=== PATIENT | female | born 1955 | race Caucasian/White ===

== ENCOUNTER 2017-05-20 15:40 | Inpatient (IN) | payer MEDICARE, MEDICAID ==
[~2017-05-20] VITALS: Ht 175.3 cm; Wt 77.0 kg
[2017-05-20] VITALS (12 sets, daily range): BP systolic 77–129; BP diastolic 45–67; PULSE 88–100; RESP 13–17; TEMP 98–98.7; O2SAT 90–97
[~2017-05-20 15:40] MED LIST: HYDR10TA16 PO; MS C60TA4 PO; PREV30CA36 PO; SOMA350T PO
[2017-05-20] MEDS ORDERED: NAPR500T2 PO (16:04)
[2017-05-20] MEDS ORDERED: DULO20 PO (16:04)
[2017-05-20] MEDS ORDERED: TIZA2TAB PO (16:04)
[2017-05-20] MEDS ORDERED: TYLETAB36 PO (16:04)
[2017-05-20] MEDS ORDERED: SODIUM CHLOR 0.9% 1000 ML INJ 1,000 ML IV ONE ×2 (16:15→17:30)
[2017-05-20 16:31] LABS: AUTOMATED NEUTROPHIL # 27.8 TH/MM3 (1.8-7.7); BASOPHIL # 0.3 TH/MM3 (0-0.2); BASOPHIL % 0.9 % (0.0-2.0); HEMATOCRIT 41.5 % (35.0-46.0); HEMOGLOBIN 13.7 GM/DL (11.6-15.3); LYMPH % 4.7 % (9.0-44.0); LYMPHOCYTE # 1.4 TH/MM3 (1.0-4.8); MEAN CELL VOLUME 91.8 FL (80.0-100.0); MEAN CORPUSCULAR HEMOGLOBIN 30.4 PG (27.0-34.0); MEAN CORPUSCULAR HGB CONC 33.1 % (32.0-36.0); MEAN PLATELET VOLUME 8.1 FL (7.0-11.0); MONO % 3.6 % (0.0-8.0); MONOCYTE # 1.1 TH/MM3 (0-0.9); NEUT % 90.8 % (16.0-70.0); PLATELET COUNT 277 TH/MM3 (150-450); RED BLOOD COUNT 4.52 MIL/MM3 (4.00-5.30); RED CELL DISTRIBUTION WIDTH 13.8 % (11.6-17.2); WHITE BLOOD COUNT 30.6 TH/MM3 (4.0-11.0)
[2017-05-20 16:39] LABS: CHLORIDE 104 MEQ/L (98-107); SODIUM (NA) 138 MEQ/L (136-145)
--- NOTE | 2017-05-20 16:39 | PD ---
HPI Chief Complaint: Fall Time Seen by Provider: 16:02 Travel History International Travel<30 days: No Contact w/Intl Traveler<30days: No Traveled to known affect area: No History of Present Illness HPI the patient 61 and complains of pain in the left hip. She states she fell in the bathroom and laid on the ground for 3 days. Evidently she was able to crawl to a phone just today leading to EMS activation. Patient reports to the RN at different account. She complains of pain in the left hip constant and worse with range of motion. No fever reported. The fall the bathroom was mechanical in nature. No LOC or head trauma. PFSH Past Medical History Arthritis: Yes Immunizations Current: Yes Seizures: Yes ( A CHILD) Menopausal: Yes Past Surgical History Cholecystectomy: Yes Joint Replacement: Yes (BILAT TOTAL HIP REPLACEMENTS) Neurologic Surgery: Yes (SPINAL CYST REMOVED) Other Surgery: Yes Social History Alcohol Use: No Tobacco Use: Yes (1 PPD) Substance Use: No Allergies-Medications (Allergen,Severity, Reaction): Coded Allergies: cefepime (Unverified Allergy, Severe, THROAT SWELLING, 05/20/17) ceftaroline fosamil (Unverified Allergy, Severe, THROAT SWELLING, 05/20/17) penicillin G (Unverified Allergy, Severe, HIVES, 05/20/17) propoxyphene (Unverified Allergy, Severe, THROAT SWELLING, 05/20/17) HIVES cephalexin (Verified Allergy, Unknown, THROAT SWELLING, 05/20/17) Reported Meds & Prescriptions Reported Meds & Active Scripts Active Reported Tizanidine (Tizanidine HCl) 2 Mg Tab 2 Mg PO BID Naproxen 500 Mg Tab 500 Mg PO BID Cymbalta DR (Duloxetine HCl) 20 Mg Capdr 20 Mg PO BID Tylenol-Codeine #4 (Acetaminophen-Codeine) 300-60 mg Tab 1 Tab PO Q4H PRN Review of Systems Except as stated in HPI: all other systems reviewed are Neg General / Constitutional: No: Fever Cardiovascular: No: Chest Pain or Discomfort Physical Exam Narrative GENERAL: 61 yo F, WNWD, AOx3, mild distress 2/2 anxiety and/or pain SKIN: Warm and dry. No ecchymosis. HEAD: Atraumatic. Normocephalic. EYES: Pupils equal and round. No scleral icterus. No injection or drainage. ENT: No nasal bleeding or discharge. Mucous membranes pink and moist. NECK: Trachea midline. No JVD. CARDIOVASCULAR: Regular rate and rhythm. RESPIRATORY: No accessory muscle use. Clear to auscultation. Breath sounds equal bilaterally. GASTROINTESTINAL: Abdomen soft, non-tender, nondistended. Hepatic and splenic margins not palpable. MUSCULOSKELETAL: Extremities without clubbing, cyanosis, or edema. No obvious deformities. NEUROLOGICAL: TTP L hip. No shortening or rotation of either lower extremity. No gross deformity. PSYCHIATRIC: Appropriate mood and affect; insight and judgment normal. Data Data Last Documented VS Vital Signs Date Time Temp Pulse Resp B/P (MAP) Pulse Ox O2 Delivery O2 Flow Rate FiO2 05/20/17 17:41 94 16 129/67 (87) 97 Nasal Cannula 2.00 05/20/17 15:49 98.0 VS reviewed Orders Orders Complete Blood Count With Diff (05/20/17 16:12) Comprehensive Metabolic Panel (05/20/17 16:12) Chest, Single Ap (05/20/17 16:12) Hip, Uni(Ap&Lat) W Ap Pelvis (05/20/17 16:12) Iv Access Insert/Monitor (05/20/17 16:12) Oximetry (05/20/17 16:12) Ecg Monitoring (05/20/17 16:12) Creatine Kinase (Cpk) (05/20/17 16:12) Sodium Chlor 0.9% 1000 Ml Inj (Ns 1000 M (05/20/17 16:15) B-Type Natriuretic Peptide (05/20/17 16:12) Troponin I (05/20/17 16:12) CKMB (05/20/17 16:25) CKMB% (05/20/17 16:25) Curtain Roller Assembler / Telemetry MARIANELA.Q8H (05/20/17 17:12) Activity Bed Rest (05/20/17 17:12) ^ Straight Catheter (05/20/17 17:19) Naloxone Inj (Narcan Inj) (05/20/17 17:30) Sodium Chlor 0.9% 1000 Ml Inj (Ns 1000 M (05/20/17 17:30) Vancomycin Inj (Vancomycin Inj) (05/20/17 17:20) Aztreonam Inj (Azactam Inj) (1/3/18 17:20) Metronidazole 500 Mg Inj (Flagyl 500 Mg (05/20/17 17:20) Labs Laboratory Tests Test 05/20/17 16:25 White Blood Count 30.6 TH/MM3 Red Blood Count 4.52 MIL/MM3 Hemoglobin 13.7 GM/DL Hematocrit 41.5 % Mean Corpuscular Volume 91.8 FL Mean Corpuscular Hemoglobin 30.4 PG Mean Corpuscular Hemoglobin Concent 33.1 % Red Cell Distribution Width 13.8 % Platelet Count 277 TH/MM3 Mean Platelet Volume 8.1 FL Neutrophils (%) (Auto) 90.8 % Lymphocytes (%) (Auto) 4.7 % Monocytes (%) (Auto) 3.6 % Eosinophils (%) (Auto) 0.0 % Basophils (%) (Auto) 0.9 % Neutrophils # (Auto) 27.8 TH/MM3 Lymphocytes # (Auto) 1.4 TH/MM3 Monocytes # (Auto) 1.1 TH/MM3 Eosinophils # (Auto) 0.0 TH/MM3 Basophils # (Auto) 0.3 TH/MM3 CBC Comment AUTO DIFF Differential Comment AUTO DIFF CONFIRMED Blood Urea Nitrogen 34 MG/DL Creatinine 1.90 MG/DL Random Glucose 83 MG/DL Total Protein 7.2 GM/DL Albumin 2.7 GM/DL Calcium Level 8.5 MG/DL Alkaline Phosphatase 257 U/L Aspartate Amino Transf (AST/SGOT) 63 U/L Alanine Aminotransferase (ALT/SGPT) 22 U/L Total Bilirubin 2.3 MG/DL Sodium Level 138 MEQ/L Potassium Level 4.7 MEQ/L Chloride Level 104 MEQ/L Carbon Dioxide Level 23.0 MEQ/L Anion Gap 11 MEQ/L Estimat Glomerular Filtration Rate 27 ML/MIN Total Creatine Kinase 255 U/L Creatine Kinase MB 3.1 NG/ML Creatine Kinase MB % 1.2 % Troponin I LESS THAN 0.02 NG/ML B-Type Natriuretic Peptide 115 PG/ML MDM Medical Decision Making Medical Screen Exam Complete: Yes Emergency Medical Condition: Yes Medical Record Reviewed: Yes Differential Diagnosis rhabdo, renal failure, hip fracture Narrative Course CBC & BMP Diagram 05/20/17 16:25 Total Protein 7.2, Albumin 2.7 L, Calcium Level 8.5, Alkaline Phosphatase 257 H , Aspartate Amino Transf (AST/SGOT) 63 H, Alanine Aminotransferase (ALT/SGPT) 22 , Total Bilirubin 2.3 H Last Impressions Hip and Pelvis X-Ray 05/20/17 161 Signed Impressions: Service Date/Time: Saturday, May 20, 2017 16:27 - CONCLUSION: Arthroplasty in anatomic alignment without fracture. Garland Webb MD FACR Chest X-Ray 05/20/171611 Signed Impressions: Service Date/Time: Saturday, May 20, 2017 16:27 - CONCLUSION: 1. No acute cardiopulmonary disease. Jh Ochoa MD The patient was rolled and there is no evidence of infection on the back or the region of the buttocks. Antibiotic started, Azactam, Flagyl and Vanco. 2 L saline started concern for possible rhabdo. Case discussed with Dr. Valenzuela for [facility] and then Dr. Barrett, the patient's primary care provider, who accepted the patient to his service. Diagnosis Primary Impression: YANNA (acute kidney injury) Additional Impressions: Fall Qualified Codes: W19.XXXA - Unspecified fall, initial encounter Leukocytosis Qualified Codes: D72.829 - Elevated white blood cell count, unspecified Admitting Information Admitting Physician Requests: Observation David Freed MD May 20, 2017 16:39
[2017-05-20 16:43] LABS: ALBUMIN 2.7 GM/DL (3.4-5.0); BLOOD UREA NITROGEN 34 MG/DL (7-18); CALCIUM 8.5 MG/DL (8.5-10.1); GLUCOSE,RANDOM 83 MG/DL (74-106)
[2017-05-20 16:46] LABS: ALT (GPT) 22 U/L (10-53)
[2017-05-20 16:47] LABS: AST (GOT) 63 U/L (15-37); GLOMERULAR FILTRATION RATE 27 ML/MIN (>89)
[2017-05-20 16:48] LABS: TOTAL BILIRUBIN ADULT 2.3 MG/DL (0.2-1.0); TOTAL PROTEIN 7.2 GM/DL (6.4-8.2)
[2017-05-20 16:49] LABS: ALKALINE PHOSPHATASE 257 U/L (45-117)
[2017-05-20 16:51] LABS: TROPONIN I LESS THAN 0.02 NG/ML (0.02-0.05)
--- NOTE | 2017-05-20 16:56 | RADRPT ---
EXAM DATE/TIME: 05/20/2017 16:27 [facility] COMPARISON: No previous studies available for comparison. INDICATIONS : Left hip pain after fall. MEDICAL HISTORY : None. SURGICAL HISTORY : Bilateral hip replacements. ENCOUNTER: Initial ACUITY: 3 days PAIN SCORE: 6/10 LOCATION: Left hip. FINDINGS: Examination of the left hip was performed with AP Pelvis. The primary and secondary trabecular patte rn of the femoral neck is intact. The hip joint is of normal width without significant sclerosis or bony hypertrophy. The acetabulum is grossly intact. CONCLUSION: Arthroplasty in anatomic alignment without fracture. Garland Webb MD FACR on May 20, 2017 at 16:54 Board Certified Radiologist. This report was verified electronically.
--- NOTE | 2017-05-20 17:10 | RADRPT ---
EXAM DATE/TIME: 05/20/2017 16:27 [facility] COMPARISON: No previous studies available for comparison. INDICATIONS : Short of breath after fall. MEDICAL HISTORY : None. SURGICAL HISTORY : Bilateral hip replacements. ENCOUNTER: Initial ACUITY: 3 days PAIN SCORE: 0/10 LOCATION: Bilateral chest FINDINGS: A single view of the chest demonstrates the lungs to be symmetrically aerated without evidence of mas s, infiltrate or effusion. The cardiomediastinal contours are unremarkable. Osseous structures are intact. CONCLUSION: 1. No acute cardiopulmonary disease. Jh Ochoa MD on May 20, 2017 at 17:08 Board Certified Radiologist. This report was verified electronically.
[2017-05-20] MEDS ORDERED: metroNIDAZOLE 500 MG INJ 100 ML IV STA (17:20)
[2017-05-20] MEDS ORDERED: VANCOMYCIN INJ 1,000 MG in SODIUM CHLOR 0.9% 250 ML INJ 250 ML IV STA (17:20)
[2017-05-20] MEDS ORDERED: AZTREONAM INJ 2,000 MG in SODIUM CHLORIDE 0.9% INJ 100 ML IV STA (17:20)
[2017-05-20] MEDS ORDERED: NALOXONE HCL 0.4 MG/ML AMP IV PUSH ONE (17:30)
[2017-05-20] MEDS ORDERED: NALOXONE HCL 0.4 MG/ML AMP IV PUSH PRN (18:00)
[2017-05-20] MEDS ORDERED: ONDANSETRON HCL 4 MG/2 ML VIAL IVP PRN (18:00)
[2017-05-20] MEDS ORDERED: MAGNESIUM HYDROXIDE SUSP 30 ML CUP PO PRN (18:00)
[2017-05-20] MEDS ORDERED: SODIUM CHLORIDE 0.9% FLUSH 10 ML FLUSH IV FLUSH PRN (18:00)
[2017-05-20] MEDS: SODIUM CHLOR 0.9% 1000 ML INJ 1,000 ML IV SCH (18:00)
[2017-05-20 18:27] LABS: BILIRUBIN, URINE MOD (NEG); BLOOD, URINE NEG (NEG); GLUCOSE,URINE NEG (NEG); KETONE, URINE TRACE mg/dL (NEG); NITRITE,URINE NEG (NEG); URINE LEUKOCYTE ESTERASE NEG (NEG)
[2017-05-20 18:31] LABS: URINE COLOR AMBER (YELLW/STRAW)
[2017-05-20 18:34] LABS: BACTERIA, URINE OCC /hpf; RBC, URINE 0-3 /hpf (0-3); SQUAMOUS EPITHELIAL CELL URINE 0-5 /hpf (0-5); WHITE BLOOD CELL CLUMPS FEW
[2017-05-20 18:35] LABS: AMORPHOUS SEDIMENT, URINE LARGE
[2017-05-20] MEDS: SODIUM CHLORIDE 0.9% FLUSH 10 ML FLUSH IV FLUSH SCH (20:50)
[2017-05-20] MEDS: ENOXAPARIN SODIUM 40 MG/0.4 ML SYRINGE SQ SCH (22:04)
[2017-05-20] MEDS ORDERED: CHLORHEXIDINE GLUCONATE 2 % 1 PACK (2 CLOTHS)(extra cloths) TOPICAL PRN (22:30)
[2017-05-21] VITALS (52 sets, daily range): BP systolic 69–117; BP diastolic 40–66; PULSE 65–101; RESP 10–27; TEMP 98.2–99.2; O2SAT 88–98
[2017-05-21] MEDS: CHLORHEXIDINE GLUCONATE 2 % 1 PACK (2 CLOTHS)(taper/protocol) TOPICAL SCH (04:00)
[2017-05-21] MEDS: SODIUM CHLOR 0.9% 1000 ML INJ 1,000 ML IV SCH ×2 (04:06→13:32)
[2017-05-21 05:10] LABS: AUTOMATED NEUTROPHIL # 21.6 TH/MM3 (1.8-7.7); BASOPHIL % 0.2 % (0.0-2.0); EOSINOPHIL % 0.1 % (0.0-4.0); HEMATOCRIT 38.4 % (35.0-46.0); HEMOGLOBIN 12.4 GM/DL (11.6-15.3); LYMPH % 3.7 % (9.0-44.0); LYMPHOCYTE # 0.9 TH/MM3 (1.0-4.8); MEAN CORPUSCULAR HEMOGLOBIN 29.3 PG (27.0-34.0); MEAN CORPUSCULAR HGB CONC 32.2 % (32.0-36.0); MEAN PLATELET VOLUME 8.3 FL (7.0-11.0); MONO % 3.1 % (0.0-8.0); MONOCYTE # 0.7 TH/MM3 (0-0.9); NEUT % 92.9 % (16.0-70.0); PLATELET COUNT 237 TH/MM3 (150-450); RED BLOOD COUNT 4.23 MIL/MM3 (4.00-5.30); RED CELL DISTRIBUTION WIDTH 13.8 % (11.6-17.2); WHITE BLOOD COUNT 23.3 TH/MM3 (4.0-11.0)
[2017-05-21 05:20] LABS: CHLORIDE 110 MEQ/L (98-107); SODIUM (NA) 142 MEQ/L (136-145)
[2017-05-21 05:23] LABS: BICARBONATE 22.7 MEQ/L (21.0-32.0); BLOOD UREA NITROGEN 40 MG/DL (7-18); GLUCOSE,RANDOM 70 MG/DL (74-106)
[2017-05-21 05:26] LABS: ALBUMIN 2.3 GM/DL (3.4-5.0); ALT (GPT) 17 U/L (10-53)
[2017-05-21 05:27] LABS: AST (GOT) 45 U/L (15-37)
[2017-05-21 05:28] LABS: TOTAL BILIRUBIN ADULT 2.3 MG/DL (0.2-1.0); TOTAL PROTEIN 6.4 GM/DL (6.4-8.2)
[2017-05-21 05:29] LABS: ALKALINE PHOSPHATASE 252 U/L (45-117); GLOMERULAR FILTRATION RATE 29 ML/MIN (>89)
[2017-05-21] MEDS: SODIUM CHLORIDE 0.9% FLUSH 10 ML FLUSH IV FLUSH SCH ×2 (08:23→21:00)
--- NOTE | 2017-05-21 10:14 | HHI.HP ---
History of Present Illness Service Primary care Primary Care Physician Paxton Barrett, DO Admission Diagnosis YANNA; Hypotension; Opioid Side Effect Diagnoses: (1) Leukocytosis (2) YANNA (acute kidney injury) (3) Fall History of Present Illness 61 y/o known to our practice S/P L ROBLES done in November. Found on floor after a fall in the bathroom, where it is reported she laid on floor for 3 days. Evidently she was able to crawl to a phone just today leading to EMS activation. She was obtunded, Narcan was given and she started to wake up. She complains of pain in the left hip pain. X-ray in ED negative for Fracture. She was found to have elevated WBC, Cxr negative. UA has culture pending, Leukocytosis likely from urine. Review of Systems ROS Limitations: Clinical Condition Past Family Social History Allergies: Coded Allergies: cefepime (Unverified Allergy, Severe, THROAT SWELLING, 05/20/17) ceftaroline fosamil (Unverified Allergy, Severe, THROAT SWELLING, 05/20/17) penicillin G (Unverified Allergy, Severe, HIVES, 05/20/17) propoxyphene (Unverified Allergy, Severe, THROAT SWELLING, 05/20/17) HIVES cephalexin (Verified Allergy, Unknown, THROAT SWELLING, 05/20/17) Past Medical History Anxiety, depression, Arthritis Past Surgical History B/L Hip replacements Reported Medications per office records: Tylenol 3#, Xanax, Cymbalta Active Ordered Medications Current Medications Medications (Trade) Dose Ordered Sig/Magda Route Start Time Stop Time Status Last Admin Sodium Chloride 1,000 ml @ 100 mls/hr Q10H IV 05/20/17 18:00 05/21/17 04:06 (NS Flush) 2 ml UNSCH PRN IV FLUSH 05/20/17 18:00 (NS Flush) 2 ml BID IV FLUSH 05/20/17 21:00 (Zofran Inj) 4 mg Q6H PRN IVP 05/20/17 18:00 (Lovenox Inj) 40 mg Q24H SQ 05/20/17 21:00 05/20/17 22:04 (Narcan Inj) 0.4 mg UNSCH PRN IV PUSH 05/20/17 18:00 (Milk Of Magnesia Liq) 30 ml Q12H PRN PO 05/20/17 18:00 Miscellaneous Information Patient in critical care unit? Ass... [id number] .XX 05/20/17 22:30 05/20/17 22:30 (Chlorhexidine 2% Cloth) 3 pack DAILY@04 TOPICAL 05/21/17 04:00 05/25/17 04:01 05/21/17 04:00 (Chlorhexidine 2% Cloth) 3 pack UNSCH PRN TOPICAL 05/20/17 22:30 05/25/17 22:18 Physical Exam Vital Signs Vital Signs Date Time Temp Pulse Resp B/P (MAP) Pulse Ox O2 Delivery O2 Flow Rate FiO2 05/21/17 09:35 90 92/52 (65) 05/21/17 09:35 91 12 92/52 (65) 93 05/21/17 09:29 90 11 94/45 (61) 92 05/21/17 09:27 90 10 88/46 (60) 91 05/21/17 09:26 90 11 84/48 (60) 91 05/21/17 09:13 96 13 98/57 (71) 92 05/21/17 09:03 90 17 89/47 (61) 90 05/21/17 09:01 88 18 84/47 (59) 90 05/21/17 09:00 88 18 84/47 (59) 90 05/21/17 08:01 96 16 99/54 (69) 91 05/21/17 08:00 96 16 99/54 (69) 91 05/21/17 07:03 90 10 95/49 (64) 91 05/21/17 07:01 90 14 86/52 (63) 91 05/21/17 07:00 98.4 90 14 86/52 (63) 91 05/21/17 07:00 92 Nasal Cannula 3.00 05/21/17 06:01 90 14 92/48 (63) 92 05/21/17 06:00 91 05/21/17 05:02 92 14 91/45 (60) 90 05/21/17 05:01 92 13 77/43 (54) 89 05/21/17 04:11 Nasal Cannula 2.00 05/21/17 04:01 98.2 98 22 96/52 (67) 91 05/21/17 04:00 90 05/21/17 03:01 98 13 104/56 (72) 89 05/21/17 02:01 96 15 95/49 (64) 88 05/21/17 02:00 97 05/21/17 01:01 94 14 91/50 (64) 88 05/21/17 01:01 94 14 91/50 (64) 88 05/21/17 00:01 98.7 96 14 90/50 (63) 92 05/21/17 00:01 96 14 90/50 (63) 92 05/21/17 00:00 101 05/20/17 23:00 100 05/20/17 22:15 90 Nasal Cannula 3.00 05/20/17 22:00 98.7 92 13 102/56 (71) 90 05/20/17 21:49 98.2 98 14 100/50 (67) 93 Nasal Cannula 2.00 05/20/17 20:43 100 15 111/56 (74) 94 Nasal Cannula 2.00 05/20/17 19:07 100 16 98/54 (69) 95 Nasal Cannula 2.00 05/20/17 17:56 92 16 117/63 (81) 97 Nasal Cannula 2.00 05/20/17 17:41 94 16 129/67 (87) 97 Nasal Cannula 2.00 05/20/17 17:26 88 16 107/56 (73) 94 Nasal Cannula 2.00 05/20/17 17:10 90 16 78/45 (56) 94 Room Air 05/20/17 17:05 88 16 77/48 (58) 94 Nasal Cannula 2.00 05/20/17 16:49 17 96 Nasal Cannula 2.00 05/20/17 15:52 17 94 Nasal Cannula 2.00 05/20/17 15:49 98.0 98 17 95/50 (65) 90 Physical Exam GENERALWell nourished, no apparent distress SKIN: No rashes, ecchymoses or lesions. Cool and dry. HEAD: Atraumatic. Normocephalic. No temporal or scalp tenderness. EYES: Pupils equal round and reactive. Extraocular motions intact. No scleral icterus. No injection or drainage. ENT: Nose without bleeding, purulent drainage Airway patent. NECK: Trachea midline. No JVD or lymphadenopathy. Supple, nontender, no meningeal signs. CARDIOVASCULAR: Regular rate and rhythm without murmurs, gallops, or rubs. RESPIRATORY: Clear to auscultation. Breath sounds equal bilaterally. No wheezes , rales, or rhonchi. GASTROINTESTINAL: Abdomen soft, non-tender, nondistended. No hepato-splenomegaly , or palpable masses. No guarding. MUSCULOSKELETAL: Extremities without clubbing, cyanosis, or edema. c/o left hip joint tenderness, effusion, or edema noted. No calf tenderness. Negative Homans sign bilaterally. NEUROLOGICAL: lethargic, will attempt to answer questions then fall asleep mid sentence . Laboratory Laboratory Tests Test 05/20/17 16:25 05/20/17 17:50 05/20/17 22:15 05/21/17 04:27 White Blood Count 30.6 23.3 Red Blood Count 4.52 4.23 Hemoglobin 13.7 12.4 Hematocrit 41.5 38.4 Mean Corpuscular Volume 91.8 91.0 Mean Corpuscular Hemoglobin 30.4 29.3 Mean Corpuscular Hemoglobin Concent 33.1 32.2 Red Cell Distribution Width 13.8 13.8 Platelet Count 277 237 Mean Platelet Volume 8.1 8.3 Neutrophils (%) (Auto) 90.8 92.9 Lymphocytes (%) (Auto) 4.7 3.7 Monocytes (%) (Auto) 3.6 3.1 Eosinophils (%) (Auto) 0.0 0.1 Basophils (%) (Auto) 0.9 0.2 Neutrophils # (Auto) 27.8 21.6 Lymphocytes # (Auto) 1.4 0.9 Monocytes # (Auto) 1.1 0.7 Eosinophils # (Auto) 0.0 0.0 Basophils # (Auto) 0.3 0.0 CBC Comment AUTO DIFF DIFF FINAL Differential Comment AUTO DIFF CONFIRMED Blood Urea Nitrogen 34 40 Creatinine 1.90 1.80 Random Glucose 83 70 Total Protein 7.2 6.4 Albumin 2.7 2.3 Calcium Level 8.5 8.0 Alkaline Phosphatase 257 252 Aspartate Amino Transf (AST/SGOT) 63 45 Alanine Aminotransferase (ALT/SGPT) 22 17 Total Bilirubin 2.3 2.3 Sodium Level 138 142 Potassium Level 4.7 4.6 Chloride Level 104 110 Carbon Dioxide Level 23.0 22.7 Anion Gap 11 9 Estimat Glomerular Filtration Rate 27 29 Total Creatine Kinase 255 Creatine Kinase MB 3.1 Creatine Kinase MB % 1.2 Troponin I LESS THAN 0.02 B-Type Natriuretic Peptide 115 Urine Color PIA Urine Turbidity CLOUDY Urine pH 5.0 Urine Specific [place] 1.030 Urine Protein 30 Urine Glucose (UA) NEG Urine Ketones TRACE Urine Occult Blood NEG Urine Nitrite NEG Urine Bilirubin MOD Urine Leukocyte Esterase NEG Urine RBC 0-3 Urine WBC 9-14 Urine WBC Clumps FEW Urine Squamous Epithelial Cells 0-5 Urine Amorphous Sediment LARGE Urine Bacteria OCC Urine Hyaline Casts 6-9 Urine Fine Granular Casts 25-49 Microscopic Urinalysis Comment CATH-CULTURE IND Date/Time Source Procedure Growth Status 05/20/17 17:50 Urine Clean Catch Urine Culture Pending Received Result Diagram: 05/21/17 0427 05/21/17 0427 Imaging Last 24 hours Impressions Hip and Pelvis X-Ray 05/20/171611 Signed Impressions: Service Date/Time: Saturday, May 20, 2017 16:27 - CONCLUSION: Arthroplasty in anatomic alignment without fracture. Garland Webb MD FACR Chest X-Ray 05/20/171611 Signed Impressions: Service Date/Time: Saturday, May 20, 2017 16:27 - CONCLUSION: 1. No acute cardiopulmonary disease. Jh Ochoa MD Caprini VTE Risk Assessment Caprini VTE Risk Assessment: Mod/High Risk (score >= 2) Caprini Risk Assessment Model Point Value = 1 Point Value = 2 Point Value = 3 Point Value = 5 Age 41-60 Minor surgery BMI > 25 kg/m2 Swollen legs Varicose veins or History of unexplained or recurrent spontaneous Oral contraceptives or hormone replacement Sepsis (< 1 month) Serious lung disease, including pneumonia (< 1 month) Abnormal pulmonary function Acute myocardial infarction Congestive heart failure (< 1 month) History of inflammatory bowel disease Medical patient at bed rest Age 61-74 Arthroscopic surgery Major open surgery (> 45 min) Laparoscopic surgery (> 45 min) Malignancy Confined to bed (> 72 hours) Immobilizing plaster cast Central venous access Age >= 75 History of VTE Family history of VTE Factor V Leiden Prothrombin [id number] Lupus anticoagulant Anticardiolipin antibodies Elevated serum homocysteine Heparin-induced thrombocytopenia Other congenital or acquired thrombophilia Stroke (< 1 month) Elective arthroplasty Hip, pelvis, or leg fracture Acute spinal cord injury (< 1 month) Prophylaxis Regimen Total Risk Factor Score Risk Level Prophylaxis Regimen 0-1 Low Early ambulation 2 Moderate Order ONE of the following: *Sequential Compression Device (SCD) *Heparin 5000 units SQ BID 3-4 Higher Order ONE of the following medications: *Heparin 5000 units SQ TID *Enoxaparin/Lovenox 40 mg SQ daily (WT < 150 kg, CrCl > 30 mL/min) *Enoxaparin/Lovenox 30 mg SQ daily (WT < 150 kg, CrCl > 10-29 mL/min) *Enoxaparin/Lovenox 30 mg SQ BID (WT < 150 kg, CrCl > 30 mL/min) AND/OR *Sequential Compression Device (SCD) 5 or more Highest Order ONE of the following medications: *Heparin 5000 units SQ TID (Preferred with Epidurals) *Enoxaparin/Lovenox 40 mg SQ daily (WT < 150 kg, CrCl > 30 mL/min) *Enoxaparin/Lovenox 30 mg SQ daily (WT < 150 kg, CrCl > 10-29 mL/min) *Enoxaparin/Lovenox 30 mg SQ BID (WT < 150 kg, CrCl > 30 mL/min) AND *Sequential Compression Device (SCD) Assessment and Plan Assessment and Plan S/P fall likely related to Opiate use. No injury monitor pain, Tylenol prn Leukocytosis- ID consulted, UA with culture pending YANNA- renal consulted slight improvement with IVF Hypotension- IV bolus give, cont to monitor GI prophylaxis- Lovenox 40mg sq qd Problem Qualifiers (1) Leukocytosis: Qualified Codes: D72.829 - Elevated white blood cell count, unspecified (2) Fall: Qualified Codes: W19.XXXA - Unspecified fall, initial encounter Tanya Toro May 21, 2017 10:14
[2017-05-21] MEDS ORDERED: SODIUM CHLORID 0.9% 500 ML INJ 500 ML IV ONE (10:45)
--- NOTE | 2017-05-21 16:42 | PD.CONS ---
HPI Service Nephrology Consult Requested By Reason for Consult Acute Renal Failure Primary Care Physician Paxton Barrett DO History of Present Illness This is a 61 y/o female who had fallen 3 days ago and was able to get to a phone to call for help today. PMH of Arthritis, recent hip replacements, anxiety. She had no PO intake for that time. On arrival she is in renal failure , no recent labs for comparison. Her creatinine is 1.8 today, was 1.9 on arrival. Her urine output is poor, dark in color, oliguric. She is hypotensive despite fluids. WBC elevated, we were consulted to assist with management. (Mary Armendariz) Review of Systems ROS Limitations: Altered Mental Status Constitutional: COMPLAINS OF: Fatigue Cardiovascular: DENIES: Lower Extremity Edema Psychiatric: COMPLAINS OF: Confusion (Mary Armendariz) Past Family Social History Allergies: Coded Allergies: cefepime (Unverified Allergy, Severe, THROAT SWELLING, 05/20/17) ceftaroline fosamil (Unverified Allergy, Severe, THROAT SWELLING, 05/20/17) penicillin G (Unverified Allergy, Severe, HIVES, 05/20/17) propoxyphene (Unverified Allergy, Severe, THROAT SWELLING, 05/20/17) HIVES cephalexin (Verified Allergy, Unknown, THROAT SWELLING, 05/20/17) Past Medical History Arthritis Anxiety Depression Past Surgical History Bilateral hip replacements Reported Medications Tizanidine (Tizanidine HCl) 2 Mg Tab 2 Mg PO BID Naproxen 500 Mg Tab 500 Mg PO BID Cymbalta DR (Duloxetine HCl) 20 Mg Capdr 20 Mg PO BID Tylenol-Codeine #4 (Acetaminophen-Codeine) 300-60 mg Tab 1 Tab PO Q4H PRN Active Ordered Medications Last 72 hours Impressions Hip and Pelvis X-Ray 05/20/17 1612 Signed Impressions: Service Date/Time: Saturday, May 20, 2017 16:27 - CONCLUSION: Arthroplasty in anatomic alignment without fracture. Garland Webb MD FACR Chest X-Ray 05/20/17 1612 Signed Impressions: Service Date/Time: Saturday, May 20, 2017 16:27 - CONCLUSION: 1. No acute cardiopulmonary disease. Jh Ochoa MD Family History No hx of renal disorders Social History Active occasional smoker No ETOH Lives alone Full code (Mary Armendariz) Physical Exam Vital Signs Vital Signs Date Time Temp Pulse Resp B/P (MAP) Pulse Ox O2 Delivery O2 Flow Rate FiO2 05/21/17 14:03 95 12 81/50 (60) 05/21/17 14:00 90 05/21/17 13:31 93 12 90/40 (57) 96 05/21/17 13:00 117/58 (77) 05/21/17 12:00 98.3 92/54 (67) 05/21/17 12:00 65 05/21/17 10:30 82/48 (59) 05/21/17 10:03 79/51 (60) 05/21/17 10:00 88 11 69/46 (54) 98 05/21/17 10:00 86 05/21/17 09:50 83/50 (61) 05/21/17 09:35 90 92/52 (65) 05/21/17 09:35 91 12 92/52 (65) 93 05/21/17 09:29 90 11 94/45 (61) 92 05/21/17 09:27 90 10 88/46 (60) 91 05/21/17 09:26 90 11 84/48 (60) 91 05/21/17 09:13 96 13 98/57 (71) 92 05/21/17 09:03 90 17 89/47 (61) 90 05/21/17 09:01 88 18 84/47 (59) 90 05/21/17 09:00 88 18 84/47 (59) 90 05/21/17 08:01 96 16 99/54 (69) 91 05/21/17 08:00 96 16 99/54 (69) 91 05/21/17 08:00 94 Nasal Cannula 2.00 05/21/17 08:00 88 05/21/17 07:03 90 10 95/49 (64) 91 05/21/17 07:01 90 14 86/52 (63) 91 05/21/17 07:00 98.4 90 14 86/52 (63) 91 05/21/17 07:00 92 Nasal Cannula 3.00 05/21/17 06:01 90 14 92/48 (63) 92 05/21/17 06:00 91 05/21/17 05:02 92 14 91/45 (60) 90 05/21/17 05:01 92 13 77/43 (54) 89 05/21/17 04:11 Nasal Cannula 2.00 05/21/17 04:01 98.2 98 22 96/52 (67) 91 05/21/17 04:00 90 05/21/17 03:01 98 13 104/56 (72) 89 05/21/17 02:01 96 15 95/49 (64) 88 05/21/17 02:00 97 05/21/17 01:01 94 14 91/50 (64) 88 05/21/17 01:01 94 14 91/50 (64) 88 05/21/17 00:01 98.7 96 14 90/50 (63) 92 05/21/17 00:01 96 14 90/50 (63) 92 05/21/17 00:00 101 05/20/17 23:00 100 05/20/17 22:15 90 Nasal Cannula 3.00 05/20/17 22:00 98.7 92 13 102/56 (71) 90 05/20/17 21:49 98.2 98 14 100/50 (67) 93 Nasal Cannula 2.00 05/20/17 20:43 100 15 111/56 (74) 94 Nasal Cannula 2.00 05/20/17 19:07 100 16 98/54 (69) 95 Nasal Cannula 2.00 05/20/17 17:56 92 16 117/63 (81) 97 Nasal Cannula 2.00 05/20/17 17:41 94 16 129/67 (87) 97 Nasal Cannula 2.00 05/20/17 17:26 88 16 107/56 (73) 94 Nasal Cannula 2.00 05/20/17 17:10 90 16 78/45 (56) 94 Room Air 05/20/17 17:05 88 16 77/48 (58) 94 Nasal Cannula 2.00 05/20/17 16:49 17 96 Nasal Cannula 2.00 Physical Exam Elderly female patient Awake, confused very dry mucous membranes lungs with wheezing, trace rales S1/S2, RRR no murmurs, rate 93 Abdomen obese, soft, non tender mai draining dark urine, oliguric Laboratory Laboratory Tests Test 05/20/17 17:50 05/20/17 22:15 05/21/17 04:27 Urine Color PIA Urine Turbidity CLOUDY Urine pH 5.0 Urine Specific [place] 1.030 Urine Protein 30 Urine Glucose (UA) NEG Urine Ketones TRACE Urine Occult Blood NEG Urine Nitrite NEG Urine Bilirubin MOD Urine Leukocyte Esterase NEG Urine RBC 0-3 Urine WBC 9-14 Urine WBC Clumps FEW Urine Squamous Epithelial Cells 0-5 Urine Amorphous Sediment LARGE Urine Bacteria OCC Urine Hyaline Casts 6-9 Urine Fine Granular Casts 25-49 Microscopic Urinalysis Comment CATH-CULTURE IND Nasal Screen MRSA (PCR) MRSA NOT DETECTED White Blood Count 23.3 Red Blood Count 4.23 Hemoglobin 12.4 Hematocrit 38.4 Mean Corpuscular Volume 91.0 Mean Corpuscular Hemoglobin 29.3 Mean Corpuscular Hemoglobin Concent 32.2 Red Cell Distribution Width 13.8 Platelet Count 237 Mean Platelet Volume 8.3 Neutrophils (%) (Auto) 92.9 Lymphocytes (%) (Auto) 3.7 Monocytes (%) (Auto) 3.1 Eosinophils (%) (Auto) 0.1 Basophils (%) (Auto) 0.2 Neutrophils # (Auto) 21.6 Lymphocytes # (Auto) 0.9 Monocytes # (Auto) 0.7 Eosinophils # (Auto) 0.0 Basophils # (Auto) 0.0 CBC Comment DIFF FINAL Differential Comment Blood Urea Nitrogen 40 Creatinine 1.80 Random Glucose 70 Total Protein 6.4 Albumin 2.3 Calcium Level 8.0 Alkaline Phosphatase 252 Aspartate Amino Transf (AST/SGOT) 45 Alanine Aminotransferase (ALT/SGPT) 17 Total Bilirubin 2.3 Sodium Level 142 Potassium Level 4.6 Chloride Level 110 Carbon Dioxide Level 22.7 Anion Gap 9 Estimat Glomerular Filtration Rate 29 Date/Time Source Procedure Growth Status 05/20/17 17:50 Urine Clean Catch Urine Culture - Preliminary NO GROWTH IN 24 HOURS. Resulted (Mary Armendariz) Result Diagram: 05/21/17 0427 05/21/17 0427 Imaging Last 72 hours Impressions Hip and Pelvis X-Ray 05/20/17 1612 Signed Impressions: Service Date/Time: Saturday, May 20, 2017 16:27 - CONCLUSION: Arthroplasty in anatomic alignment without fracture. Garland Webb MD FACR Chest X-Ray 05/20/17 1612 Signed Impressions: Service Date/Time: Saturday, May 20, 2017 16:27 - CONCLUSION: 1. No acute cardiopulmonary disease. Jh Ochoa MD (Mary Armendariz) Assessment and Plan Problem List: (1) YANNA (acute kidney injury) ICD Codes: N17.9 - Acute kidney failure, unspecified Status: Acute Plan: No recent labs for comparison Reportedly was on Naproxen prior to arrival YANNA suspected prerenal azotemia from poor oral intake; also exacerbated by hypotension and decreased renal perfusion May have progressed to ATN She is oliguric continue IVF Start midodrine, if no improvement, may need pressor support; maintain MAP > 65mmHg Repeat labs in AM, minimize non essential Meds and nephrotoxic agents; renally dose and monitor drug levels if appropriate Follow urine output encourage PO fluids Renal US has been ordered (2) Leukocytosis ICD Codes: D72.829 - Elevated white blood cell count, unspecified Status: Acute Plan: ID has been consulted Suspected UTI, culture in progress Given multiple antibiotics including aztreonam, flagyl, vancomycin (Mary Armendariz) Problem List: (1) YANNA (acute kidney injury) ICD Codes: N17.9 - Acute kidney failure, unspecified Status: Acute Plan: No recent labs for comparison Reportedly was on Naproxen prior to arrival YANNA suspected prerenal azotemia from poor oral intake; also exacerbated by hypotension and decreased renal perfusion May have progressed to ATN She is oliguric continue IVF Start midodrine, if no improvement, may need pressor support; maintain MAP > 65mmHg Repeat labs in AM, minimize non essential Meds and nephrotoxic agents; renally dose and monitor drug levels if appropriate Follow urine output encourage PO fluids Renal US has been ordered (2) Leukocytosis ICD Codes: D72.829 - Elevated white blood cell count, unspecified Status: Acute Plan: ID has been consulted Suspected UTI, culture in progress Given multiple antibiotics including aztreonam, flagyl, vancomycin Assessment and Plan patient was seen and examined. Patient is hypotensive, oliguric. YANNA could be secondary to pre-renal state, may have progressed to ATN. She likely overdosed on narcotics. Obtain urine electrolytes. Another fluid bolus. No need for Midodrine, if remains hypotensive in spite of IVF, start Levophed. Monitor urine output and renal function. (Nick Ceballos MD) Problem Qualifiers (1) Leukocytosis: Qualified Codes: D72.829 - Elevated white blood cell count, unspecified Mary Armendariz May 21, 2017 16:42 Nick Ceballos MD May 21, 2017 17:29
--- NOTE | 2017-05-21 16:47 | RADRPT ---
EXAM DATE/TIME: 05/21/2017 15:41 [facility] COMPARISON: No previous studies available for comparison. INDICATIONS : Congestive heart failure. MEDICAL HISTORY : None. SURGICAL HISTORY : Bilateral hip replacement. ENCOUNTER: Subsequent ACUITY: 1 day PAIN SCORE: 0/10 LOCATION: Bilateral chest FINDINGS: The lungs are clear without infiltrate, nodule, or mass. There is no appreciable pleural effusion fo r technique. Heart and mediastinum are unremarkable. CONCLUSION: No acute cardiopulmonary disease. Edita Ayala MD on May 21, 2017 at 16:43 Board Certified Radiologist. This report was verified electronically.
[2017-05-21] MEDS ORDERED: MIDODRINE 5 MG TAB PO SCH ×2 (17:00)
[2017-05-21] MEDS: LEVOFLOXACIN 250 MG TAB PO SCH (17:18)
[2017-05-21] MEDS ORDERED: SODIUM CHLORID 0.9% 500 ML INJ 500 ML IV SCH (17:30)
--- NOTE | 2017-05-21 18:23 | MB ---
cc: ANTHONY LEAHY MD DATE OF CONSULTATION 05/21/[address] Barrett REASON FOR CONSULTATION Leukocytosis. HISTORY OF PRESENT ILLNESS This 61-year-old white female was brought to the emergency department on 05/20/2017 after she was found at home following a fall. It is noted in the emergency department record that the patient was on the ground for three days. She was evaluated in the emergency department and at the time there was no fever, no tachycardia. However, white blood cell count was elevated at 30.6 with left shift. She also was found to have acute renal failure. She was given IV antibiotics in the emergency department. Urine culture was taken and it has no growth. The urinalysis prior to that showed 9-14 white cells white cells and the urine was reported to be cloudy. The patient underwent chest x-ray evaluation and it showed no acute cardiopulmonary disease. She had complained of pain in her left hip and x-ray was performed and shows arthroplasty in anatomic alignment without fracture. The patient is currently awake and alert. She denies pain. She has no nausea or vomiting. She states that she feels okay. She denies cough or shortness of breath. The patient reportedly was given Narcan after she was found at home and she reportedly started to wake up after that. This consultation is requested because of the leukocytosis. PAST MEDICAL HISTORY 1. Arthritis, 2. Bilateral hip replacement, 3. Anxiety, depression. ALLERGIES CEFEPIME CEFTAROLINE CEPHALEXIN PENICILLIN G PROPOXYPHENE MEDICATIONS 1. Metronidazole dose was given in the emergency department. 2. Vancomycin, 3. Aztreonam. SOCIAL HISTORY The patient smokes a pack of cigarettes a day. No alcohol. No illicit drugs. FAMILY HISTORY Noncontributory. FAMILY HISTORY Noncontributory. REVIEW OF SYSTEMS Negative 10-point review. PHYSICAL EXAMINATION GENERAL: This is a well-developed female who is in no acute distress. She is awake and alert. She is oriented. VITAL SIGNS: Temperature 98.3, BP 81/50, respirations 16, heart rate 95. HEENT: Head atraumatic. Extraocular movements grossly intact. No icterus. Oropharynx mucosa moist. NECK: Supple without adenopathy or swelling. LUNGS: Bilateral coarse rhonchi. HEART: Regular rate and rhythm without audible murmurs, rubs or gallops. ABDOMEN: Bowel sounds present, soft, no tenderness appreciated. RECTAL: Not performed. EXTREMITIES: No clubbing, cyanosis or edema. The patient has a Lo catheter in place which has concentrated jessica urine. SKIN: No diffuse rash. NEUROLOGIC: No gross focal findings PSYCHIATRIC: The patient is calm and cooperative. LABORATORY DATA WBC 23.3, 92% neutrophils, hemoglobin 12.4, estimated GFR 12, creatinine 1.80, sodium 142, AST 45, ALT 17. IMPRESSION Leukocytosis probably secondary to urinary tract infection. The patient, however, also has coarse breath sounds with rhonchi and pneumonia needs to be ruled out as cause of the leukocytosis. RECOMMENDATIONS 1. Begin Levaquin. 2. Follow urine culture. 3. Follow the new chest x-ray which has been ordered. 4. Monitor clinical status. 5. Monitor for other signs for source of infection. Thank you for this consultation. The patient's progress will be monitored and further recommendations will be given upon followup if necessary. Anthony Leahy MD FD/ /4:19 PM /5:50 PM [facility]
[2017-05-21] MEDS: ENOXAPARIN SODIUM 40 MG/0.4 ML SYRINGE SQ SCH (21:39)
[2017-05-21] MEDS: DEXT 5%-NACL 0.9% 1000 ML INJ 1,000 ML IV SCH (21:41)
[2017-05-21] MEDS: RESP: ALBUTEROL 2.5 MG/IPRATROPIUM 0.5 MG NEB (SCH) NEB (23:30)
[2017-05-22] VITALS (51 sets, daily range): BP systolic 74–199; BP diastolic 43–119; PULSE 58–108; RESP 14–35; TEMP 98.2–99.2; O2SAT 89–98
[2017-05-22] MEDS ORDERED: PHENYLEPHRINE INJ 160 MG in DEXTROSE 5% IN WATE 500 ML INJ 484 ML IV PRN ×2 (01:15)
[2017-05-22] MEDS ORDERED: TERBUTALINE INJ 1 MG/ML AMP SQ PRN (01:15)
[2017-05-22] MEDS ORDERED: ALBUMIN 25% INJ 100 ML IV ONE (01:15)
[2017-05-22 02:11] LABS: BLOOD, URINE SMALL (NEG); GLUCOSE,URINE NEG (NEG); KETONE, URINE TRACE mg/dL (NEG); NITRITE,URINE NEG (NEG); PH, URINE 5.5 (5.0-8.5); URINE LEUKOCYTE ESTERASE TRACE (NEG)
[2017-05-22 02:12] LABS: BILIRUBIN, URINE NEG (NEG)
[2017-05-22 02:13] LABS: URINE COLOR YELLOW (YELLW/STRAW)
[2017-05-22 02:16] LABS: SQUAMOUS EPITHELIAL CELL URINE 0-5 /hpf (0-5)
[2017-05-22 02:17] LABS: AMORPHOUS SEDIMENT, URINE LARGE
[2017-05-22 02:18] LABS: CHLORIDE 113 MEQ/L (98-107); SODIUM (NA) 144 MEQ/L (136-145)
[2017-05-22 02:22] LABS: ALBUMIN 2.2 GM/DL (3.4-5.0); BICARBONATE 20.5 MEQ/L (21.0-32.0); CALCIUM 7.5 MG/DL (8.5-10.1); GLUCOSE,RANDOM 114 MG/DL (74-106); LIPASE 45 U/L (73-393); MAGNESIUM 2.1 MG/DL (1.5-2.5)
[2017-05-22 02:24] LABS: INTERNATIONAL NORMALIZED RATIO 1.2 RATIO; PROTHROMBIN TIME - PATIENT 11.9 SEC (9.8-11.6)
[2017-05-22 02:30] LABS: ALKALINE PHOSPHATASE 286 U/L (45-117); ALT (GPT) 13 U/L (10-53); AMYLASE 16 U/L (25-115); AST (GOT) 33 U/L (15-37); BLOOD UREA NITROGEN 55 MG/DL (7-18); GLOMERULAR FILTRATION RATE 22 ML/MIN (>89); PHOSPHORUS 3.9 MG/DL (2.5-4.9); TOTAL BILIRUBIN ADULT 1.4 MG/DL (0.2-1.0); TOTAL PROTEIN 6.4 GM/DL (6.4-8.2)
[2017-05-22] MEDS: DEXT 5%-NACL 0.9% 1000 ML INJ 1,000 ML IV SCH ×3 (02:40→21:50)
[2017-05-22] MEDS: RESP: ALBUTEROL 2.5 MG/IPRATROPIUM 0.5 MG NEB (SCH) NEB ×2 (03:19→20:16)
[2017-05-22] MEDS: SODIUM CHLOR 0.9% 1000 ML INJ 1,000 ML IV SCH (03:30)
[2017-05-22] MEDS: CHLORHEXIDINE GLUCONATE 2 % 1 PACK (2 CLOTHS)(taper/protocol) TOPICAL SCH (04:00)
[2017-05-22 04:22] LABS: CREATININE, RANDOM URINE 122.7 MG/DL
[2017-05-22 04:34] LABS: AUTOMATED NEUTROPHIL # 23.2 TH/MM3 (1.8-7.7); BASOPHIL % 0.1 % (0.0-2.0); EOSINOPHIL # 0.1 TH/MM3 (0-0.4); EOSINOPHIL % 0.4 % (0.0-4.0); HEMATOCRIT 35.2 % (35.0-46.0); HEMOGLOBIN 11.6 GM/DL (11.6-15.3); LYMPH % 5.7 % (9.0-44.0); LYMPHOCYTE # 1.5 TH/MM3 (1.0-4.8); MEAN CELL VOLUME 91.1 FL (80.0-100.0); MEAN CORPUSCULAR HGB CONC 32.9 % (32.0-36.0); MEAN PLATELET VOLUME 8.8 FL (7.0-11.0); MONO % 2.8 % (0.0-8.0); MONOCYTE # 0.7 TH/MM3 (0-0.9); PLATELET COUNT 222 TH/MM3 (150-450); RED BLOOD COUNT 3.87 MIL/MM3 (4.00-5.30); RED CELL DISTRIBUTION WIDTH 13.9 % (11.6-17.2); WHITE BLOOD COUNT 25.5 TH/MM3 (4.0-11.0)
[2017-05-22 04:59] LABS: BANDS 20 % (0-6); LYMPHOCYTES 4 % (9-44); MONOCYTES 1 % (0-8); NEUTROPHIL # MANUAL DIFF 24.2 TH/MM3 (1.8-7.7); POLYS (SEG NEUTROPHILS) 75 % (16-70)
[2017-05-22] MEDS ORDERED: SODIUM CHLORIDE 0.9% FLUSH 10 ML FLUSH IV FLUSH PRN (07:00)
[2017-05-22] MEDS ORDERED: MAGNESIUM HYDROXIDE SUSP 30 ML CUP PO PRN (07:00)
[2017-05-22] MEDS ORDERED: LACTULOSE SYRUP 20 GM/30 ML CUP PO PRN (07:00)
[2017-05-22] MEDS ORDERED: SENNOSIDES 8.6 MG TAB PO PRN (07:00)
[2017-05-22] MEDS ORDERED: CHLORHEXIDINE GLUCONATE 2 % 1 PACK (2 CLOTHS) TOP PRN (07:00)
[2017-05-22] MEDS ORDERED: BISACODYL 10 MG SUPP RECTAL PRN (07:00)
[2017-05-22] MEDS ORDERED: MISCELLANEOUS NURSING INFORMATION XX SCH (07:00)
--- NOTE | 2017-05-22 07:24 | PD.CONS ---
HPI Service Critical Care Medicine Consult Requested By Primary Care Physician Paxton Barrett DO History of Present Illness History of Present Illness This is a 61 y/o female found on floor after a fall in the bathroom, where it is reported she laid on floor for 3 days. She was obtunded, Narcan was given and she started to wake up. She complains of pain in the left hip pain. X-ray in ED negative for fracture on 05/21/2016.The patient is S/P L ROBLES done in November 2016. In the ED , laboratory studies were performed and she was found to have elevated WBC, Cxr negative. UA has culture pending, and leukocytosis. She was admitted to the hospital and in the last 24 hours the patient has continued to have altered mental status, laboratory results continued with leukocytosis and bandemia ID was consulted the patient was noted to have a KI nephrology was consulted. During the night the patient was noted to become hypotensive SBP 80- 90's, and noted increasing FiO2 requirements currently on partial nonrebreather , of note Midodrine was discontinued. Critical care medicine was consulted, low -dose phenylephrine was ordered, however the patient received 250 cc of 5% albumin and currently is normotensive. ROS - General Review of Systems ROS Limitations: Clinical Condition PFSH Past Family Social History Allergies: Coded Allergies: cefepime (Unverified Allergy, Severe, THROAT SWELLING, 05/20/17) ceftaroline fosamil (Unverified Allergy, Severe, THROAT SWELLING, 05/20/17) penicillin G (Unverified Allergy, Severe, HIVES, 05/20/17) propoxyphene (Unverified Allergy, Severe, THROAT SWELLING, 05/20/17) HIVES cephalexin (Verified Allergy, Unknown, THROAT SWELLING, 05/20/17) Past Medical History Anxiety, depression, Arthritis Past Surgical History B/L Hip replacements Reported Medications per office records: Tylenol 3#, Xanax, Cymbalta Active Ordered Medications Physical Exam Vital Signs Vital Signs Date Time Temp Pulse Resp B/P (MAP) Pulse Ox O2 Delivery O2 Flow Rate FiO2 05/22/17 06:19 91 05/22/17 06:00 98.2 91 23 110/52 (71) 94 05/22/17 04:31 90 24 92/48 (63) 97 05/22/17 04:00 92 24 92/48 (63) 96 05/22/17 04:00 90 05/22/17 03:34 96 35 99/47 (64) 97 05/22/17 03:20 96 26 113/69 (84) 96 05/22/17 02:36 90 23 95/54 (68) 98 05/22/17 02:15 92 22 131/54 (79) 96 05/22/17 02:00 91 05/22/17 01:54 97 24 93/49 (64) 98 05/22/17 01:28 92 22 89/47 (61) 95 05/22/17 01:04 81 23 83/46 (58) 89 05/22/17 01:00 97 Partial Rebreather 12.00 05/22/17 00:33 84 23 96/49 (65) 90 05/22/17 00:00 86 22 75/48 (57) 90 05/22/17 00:00 82 05/21/17 23:34 94 Nasal Cannula 6.00 05/21/17 23:04 99.2 84 27 80/46 (57) 91 05/21/17 23:00 80 05/21/17 22:00 92 20 83/52 (62) 91 05/21/17 22:00 86 05/21/17 21:00 94 20 95/66 (76) 90 05/21/17 20:00 88 15 90/54 (66) 91 05/21/17 20:00 88 05/21/17 19:00 92 Nasal Cannula 92 05/21/17 19:00 98.9 87 12 93/53 (66) 90 05/21/17 18:35 88 13 98/54 (69) 93 05/21/17 18:00 94 05/21/17 17:21 96 13 97/54 (68) 92 05/21/17 17:20 97/54 (68) 05/21/17 17:00 90 11 98/52 (67) 91 05/21/17 16:39 98.7 05/21/17 16:30 90/50 (63) 05/21/17 16:00 94 05/21/17 15:30 94/48 (63) 05/21/17 15:00 90/50 (63) 05/21/17 15:00 90 05/21/17 14:30 90/54 (66) 05/21/17 14:03 95 12 81/50 (60) 05/21/17 14:00 95 12 81/50 (60) 05/21/17 14:00 90 05/21/17 13:31 93 12 90/40 (57) 96 05/21/17 13:00 117/58 (77) 05/21/17 12:00 98.3 92/54 (67) 05/21/17 12:00 65 05/21/17 10:30 82/48 (59) 05/21/17 10:03 79/51 (60) 05/21/17 10:00 88 11 69/46 (54) 98 05/21/17 10:00 86 05/21/17 09:50 83/50 (61) 05/21/17 09:35 90 92/52 (65) 05/21/17 09:35 91 12 92/52 (65) 93 05/21/17 09:29 90 11 94/45 (61) 92 05/21/17 09:27 90 10 88/46 (60) 91 05/21/17 09:26 90 11 84/48 (60) 91 05/21/17 09:13 96 13 98/57 (71) 92 05/21/17 09:03 90 17 89/47 (61) 90 05/21/17 09:01 88 18 84/47 (59) 90 05/21/17 09:00 88 18 84/47 (59) 90 05/21/17 08:01 96 16 99/54 (69) 91 05/21/17 08:00 96 16 99/54 (69) 91 05/21/17 08:00 94 Nasal Cannula 2.00 05/21/17 08:00 88 05/21/17 07:03 90 10 95/49 (64) 91 05/21/17 07:01 90 14 86/52 (63) 91 05/21/17 07:00 98.4 90 14 86/52 (63) 91 05/21/17 07:00 92 Nasal Cannula 3.00 Physical Exam GENERAL: This is a well-developed well-nourished obese female, confused and appropriate conversation answers to questions, but follows commands SKIN: Warm and dry. HEAD: Atraumatic. Normocephalic. EYES: Pupils equal and round. No scleral icterus. No injection or drainage. ENT: No nasal bleeding or discharge. Mucous membranes pink and moist. NECK: Trachea midline. No JVD. CARDIOVASCULAR: Normal rate, regular rhythm. Noted systolic ejection murmur 2/6 RESPIRATORY: No accessory muscle use. Scattered rhonchi , cleared with coughing. Breath sounds equal bilaterally. Currently on partial nonrebreather GASTROINTESTINAL: Abdomen soft, non-tender, nondistended. No guarding. MUSCULOSKELETAL: Extremities without clubbing, cyanosis, or edema. No obvious deformities. NEUROLOGICAL: GCS 14 .Awake and alert. RASS 0. No gross focal/sensory deficits. Follows commands in all 4 extremities. Laboratory Laboratory Tests Test 05/22/17 01:22 05/22/17 01:45 05/22/17 01:46 05/22/17 01:54 Blood Gas Puncture Site RT RADIAL Blood Gas Patient Temperature 37.0 Blood Gas HCO3 21 Blood Gas Base Excess -5.0 Blood Gas Oxygen Saturation 94 Arterial Blood pH 7.27 Arterial Blood Partial Pressure CO2 46 Arterial Blood Partial Pressure O2 76 Arterial Blood Oxygen Content 15.0 Arterial Blood Carboxyhemoglobin 1.0 Arterial Blood Methemoglobin 1.0 Blood Gas Hemoglobin 11.4 Oxygen Delivery Device Venti Mask Blood Gas Liter Flow 6 Blood Gas Inspired Oxygen 50 Prothrombin Time 11.9 Prothromb Time International Ratio 1.2 Activated Partial Thromboplast Time 34.5 Fibrinogen 561 Urine Color YELLOW Urine Turbidity CLOUDY Urine pH 5.5 Urine Specific Bittinger 1.025 Urine Protein 100 Urine Glucose (UA) NEG Urine Ketones TRACE Urine Occult Blood SMALL Urine Nitrite NEG Urine Bilirubin NEG Urine Leukocyte Esterase TRACE Urine RBC 3-5 Urine WBC 6-8 Urine Squamous Epithelial Cells 0-5 Urine Amorphous Sediment LARGE Urine Bacteria NONE Urine Fine Granular Casts 6-9 Microscopic Urinalysis Comment CULT NOT INDICATED Urine Random Creatinine 122.7 Urine Random Sodium 29 Blood Urea Nitrogen 55 Creatinine 2.30 Random Glucose 114 Total Protein 6.4 Albumin 2.2 Calcium Level 7.5 Phosphorus Level 3.9 Magnesium Level 2.1 Alkaline Phosphatase 286 Aspartate Amino Transf (AST/SGOT) 33 Alanine Aminotransferase (ALT/SGPT) 13 Total Bilirubin 1.4 Sodium Level 144 Potassium Level 4.4 Chloride Level 113 Carbon Dioxide Level 20.5 Anion Gap 11 Estimat Glomerular Filtration Rate 22 Lactic Acid Level 0.8 Ammonia LESS THAN 10 Total Creatine Kinase 69 Amylase Level 16 Lipase 45 Thyroid Stimulating Hormone 3rd Gen 0.148 White Blood Count 25.5 Red Blood Count 3.87 Hemoglobin 11.6 Hematocrit 35.2 Mean Corpuscular Volume 91.1 Mean Corpuscular Hemoglobin 30.0 Mean Corpuscular Hemoglobin Concent 32.9 Red Cell Distribution Width 13.9 Platelet Count 222 Mean Platelet Volume 8.8 Neutrophils (%) (Auto) 91.0 Lymphocytes (%) (Auto) 5.7 Monocytes (%) (Auto) 2.8 Eosinophils (%) (Auto) 0.4 Basophils (%) (Auto) 0.1 Neutrophils # (Auto) 23.2 Lymphocytes # (Auto) 1.5 Monocytes # (Auto) 0.7 Eosinophils # (Auto) 0.1 Basophils # (Auto) 0.0 CBC Comment AUTO DIFF Differential Total Cells Counted 100 Neutrophils % (Manual) 75 Band Neutrophils % 20 Lymphocytes % 4 Monocytes % 1 Neutrophils # (Manual) 24.2 Differential Comment FINAL DIFF MANUAL Platelet Estimate NORMAL Platelet Morphology Comment NORMAL Red Cell Morphology Comment NORMAL Date/Time Source Procedure Growth Status 05/22/17 01:49 Blood Peripheral Aerobic Blood Culture Pending Received 05/22/17 01:49 Blood Peripheral Anaerobic Blood Culture Pending Received 05/22/17 05:20 Nasal Aspirate Influenza Types A,B Antigen (LEAH) - Final NEGATIVE FOR FLU A AND B ANTIGEN.... Complete 05/20/17 17:50 Urine Clean Catch Urine Culture - Preliminary NO GROWTH IN 24 HOURS. Resulted Result Diagram: 05/22/17 0154 05/22/17 0145 Imaging Last Impressions Chest X-Ray 05/21/17 0000 Signed Impressions: Service Date/Time: May 15:41 - CONCLUSION: No acute cardiopulmonary disease. Edita Ayala MD Hip and Pelvis X-Ray 05/20/17 1612 Signed Impressions: Service Date/Time: Saturday, May 20, 2017 16:27 - CONCLUSION: Arthroplasty in anatomic alignment without fracture. Garland Webb MD FACR Septic Shock Reassessment Septic shock perfusion: reassessment completed Assessment and Plan Problem List: (1) Leukocytosis ICD Code: D72.829 - Elevated white blood cell count, unspecified Status: Acute (2) Fall ICD Code: W19.XXXA - Unspecified fall, initial encounter Status: Acute (3) YANNA (acute kidney injury) ICD Code: N17.9 - Acute kidney failure, unspecified Status: Acute (4) Bandemia ICD Code: D72.825 - Bandemia Status: Acute (5) Tobacco abuse disorder ICD Code: Z72.0 - Tobacco use Status: Chronic (6) Encephalopathy acute ICD Code: G93.40 - Encephalopathy, unspecified Status: Acute Assessment and Plan This is a 61 year old female, with altered mental status status post fall with sepsis and persistent leukocytosis, and YANNA , with noted elevated alkaline phosphatase levels as well as the 2/6 systolic ejection murmur. The patient's having episodes of increasing FiO2 requirements. Critical care medicine has been consulted. Plan by systems: Neurologic: Metabolic encephalopathy Depression Neurochecks per ICU protocol Avoid long-acting sedative type medications Patient's home medications included Tylenol No. 3, Alonso HERNANDEZ, tizanidine- continue to place on hold Tylenol 650 mg every 6 hours when necessary for pain and/or fever GCS 14 Respiratory: Acute respiratory insufficiency Tobacco abuse Maintain O2 saturation greater than 92% Provide O2 via nasal cannula 1-4 liters Bronchodilators every 6 hours schedule Consider incentive spirometry if patient is cooperative Maintain head of bed 30 Cardiovascular: Hypotension Resume Midodrine 10mg 3 times a day Consider phenylephrine infusion with central line placement if required to maintain MAP greater than 65 Maintain MAP greater than 65 Obtain echo-evaluate function ,rule out endocarditis Renal: YANNA Maintain Lo catheter Nephrology following Obtain urine eosinophils Follow-up ultrasound kidney bladder Creatinine worsening 2.3 from 1.8 possible ATN secondary to hypotension FeNa 0.38 -- Strict I/Os FEN/GI: IV fluid D5 NS @100cc/hr Maintain nothing by mouth status-for ultrasound procedures Following procedures bedside swallow assessment 2/2 confusion Obtain US gallbladder-noted elevated alkaline phosphatase 252->286 today Zofran for nausea Famotidine GI prophylaxis Heme/ID: Persistent leukocytosis Bandemia ID following-Dr. Conrad 05/21 blood cultures-NGTD 05/21 urine culture-NGTD, trace leukocyte esterase Antibiotic management per ID-vancomycin, metronidazole, Atrezonam (day 2) Obtain Legionella and pneumococcal urine antigens Influenza negative Endocrine: Glucose monitoring per ICU protocol -- SSI Prophylaxis: GI Prophylaxis Famotidine BID DVT Prophylaxis -- SCDs Lovenox every 24 hours Lines: Peripheral IVs 2. central line if indicated Dispo: my billing statement This patient remains critically ill with one or more organ systems which are or may become a threat to life. I have spent in excess of 60 minutes discontinuously in the care and management of this patient. This time is exclusive of procedures, and includes, but is not limited to, evaluation of the patient, review of the medical record, discussions with family, consultants, nursing staff, or respiratory therapy, and documentation in the medical record. Code Status Full Discussed Condition With MATERIALS DIRECTOR at bedside Problem Qualifiers (1) Leukocytosis: Qualified Codes: D72.829 - Elevated white blood cell count, unspecified (2) Fall: Qualified Codes: W19.XXXA - Unspecified fall, initial encounter Radha Cardenas MD May 22, 2017 07:24
--- NOTE | 2017-05-22 08:59 | HHI.NPPN ---
Subjective Renal Failure: Acute (Mary Armendariz) Review of Systems General Constitutional: Fatigue (Mary Armendariz) Objective Data Data Vital Signs Date Time Temp Pulse Resp B/P (MAP) Pulse Ox O2 Delivery O2 Flow Rate FiO2 05/22/17 06:19 91 05/22/17 06:18 84 18 107/52 (70) 90 05/22/17 06:00 98.2 91 23 110/52 (71) 94 05/22/17 04:31 90 24 92/48 (63) 97 05/22/17 04:00 92 24 92/48 (63) 96 05/22/17 04:00 90 05/22/17 03:34 96 35 99/47 (64) 97 05/22/17 03:20 96 26 113/69 (84) 96 05/22/17 02:36 90 23 95/54 (68) 98 05/22/17 02:15 92 22 131/54 (79) 96 05/22/17 02:00 91 05/22/17 01:54 97 24 93/49 (64) 98 05/22/17 01:28 92 22 89/47 (61) 95 05/22/17 01:04 81 23 83/46 (58) 89 05/22/17 01:00 97 Partial Rebreather 12.00 05/22/17 00:33 84 23 96/49 (65) 90 05/22/17 00:00 86 22 75/48 (57) 90 05/22/17 00:00 82 05/21/17 23:34 94 Nasal Cannula 6.00 05/21/17 23:04 99.2 84 27 80/46 (57) 91 05/21/17 23:00 80 05/21/17 22:00 92 20 83/52 (62) 91 05/21/17 22:00 86 05/21/17 21:00 94 20 95/66 (76) 90 05/21/17 20:00 88 15 90/54 (66) 91 05/21/17 20:00 88 05/21/17 19:00 92 Nasal Cannula 92 05/21/17 19:00 98.9 87 12 93/53 (66) 90 05/21/17 18:35 88 13 98/54 (69) 93 05/21/17 18:00 94 05/21/17 17:21 96 13 97/54 (68) 92 05/21/17 17:20 97/54 (68) 05/21/17 17:00 90 11 98/52 (67) 91 05/21/17 16:39 98.7 05/21/17 16:30 90/50 (63) 05/21/17 16:00 94 05/21/17 15:30 94/48 (63) 05/21/17 15:00 90/50 (63) 05/21/17 15:00 90 05/21/17 14:30 90/54 (66) 05/21/17 14:03 95 12 81/50 (60) 05/21/17 14:00 95 12 81/50 (60) 05/21/17 14:00 90 05/21/17 13:31 93 12 90/40 (57) 96 05/21/17 13:00 117/58 (77) 05/21/17 12:00 98.3 92/54 (67) 05/21/17 12:00 65 05/21/17 10:30 82/48 (59) 05/21/17 10:03 79/51 (60) 05/21/17 10:00 88 11 69/46 (54) 98 05/21/17 10:00 86 05/21/17 09:50 83/50 (61) 05/21/17 09:35 90 92/52 (65) 05/21/17 09:35 91 12 92/52 (65) 93 05/21/17 09:29 90 11 94/45 (61) 92 05/21/17 09:27 90 10 88/46 (60) 91 05/21/17 09:26 90 11 84/48 (60) 91 05/21/17 09:13 96 13 98/57 (71) 92 05/21/17 09:03 90 17 89/47 (61) 90 05/21/17 09:01 88 18 84/47 (59) 90 05/21/17 09:00 88 18 84/47 (59) 90 (Mary Armendariz) -: 05/22/17 0154 05/22/17 0145 Microbiology 05/22/17 Aerobic Blood Culture, Received Pending 05/22/17 Anaerobic Blood Culture, Received Pending 05/22/17 Aerobic Blood Culture, Received Pending 05/22/17 Anaerobic Blood Culture, Received Pending 05/22/17 Influenza Types A,B Antigen (LEAH) - Final, Complete NEGATIVE FOR FLU A AND B ANTIGEN.... 05/22/17 Gram Stain, Received Pending 05/22/17 Sputum Culture, Received Pending Imaging Last 72 hours Impressions Chest X-Ray 05/21/17 0000 Signed Impressions: Service Date/Time: May 15:41 - CONCLUSION: No acute cardiopulmonary disease. Edita Ayala MD Hip and Pelvis X-Ray 05/20/17 1612 Signed Impressions: Service Date/Time: Saturday, May 20, 2017 16:27 - CONCLUSION: Arthroplasty in anatomic alignment without fracture. Garland Webb MD FACR Chest X-Ray 05/20/17 1612 Signed Impressions: Service Date/Time: Saturday, May 20, 2017 16:27 - CONCLUSION: 1. No acute cardiopulmonary disease. 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) Pulmonary Resp Exam: Crackles, Rhonchi Resp Remarks wheezing (Mary Armendariz BNandini MAXWELL) Cardiology CV Exam: Regular, Normal Sinus Rhythm (Mary Armendariz) Gastrointestinal/Abdomen GI Exam: Soft, Non-Tender, Bowel Sounds Present (Mary Armendariz) Musculoskeletal MS Exam: Joints Intact, Normal Tone, Unable to Ambulate (Mary Armendariz BNandini MAXWELL) Integumentary Skin Exam: Clear, Warm, Dry, Intact (Mary Armendariz BNandini MAXWELL) Extremeties Extremities Exam: No Edema, Pedal Pulses Palpable (Mary Armendariz BNandini MAXWELL) Neurologic Neuro Exam: Awake, Moving All Extremities Neuro Remarks slightly confused (Mary Armendariz) Assessment/Plan Discussed Condition With: Patient Assessment Summary: YANNA/Acute Renal Failure, Dehydration, Hypotension Electrolyte Assessment: Metabolic Acidosis Problem List: (1) YANNA (acute kidney injury) ICD Codes: N17.9 - Acute kidney failure, unspecified Status: Acute Plan: No recent labs for comparison Reportedly was on Naproxen prior to arrival YANNA suspected prerenal azotemia from poor oral intake; also exacerbated by hypotension and decreased renal perfusion; May have progressed to ATN -FeNa < 1% She is non oliguric Borderline hypotensive, slightly improved from yesterday. CCM restarted midodrine, orders for Neosyneperine gtt in place if needed Maintain MAP >65mmHg continue IVF, D5NS@100 cc/hr Repeat labs in AM, minimize non essential Meds and nephrotoxic agents; renally dose and monitor drug levels if appropriate Follow urine output encourage PO fluids Renal US not resulted as of now (2) Leukocytosis ICD Codes: D72.829 - Elevated white blood cell count, unspecified Status: Acute Plan: ID has been consulted Suspected UTI, culture in progress Given multiple antibiotics , now on Levaquin (Mary Armendariz) Plan patient was seen and examined. Continue IVF. Maintain MAP above 65. Avoid nephrotoxic agents. (Nick Ceballos MD) Problem Qualifiers (1) Leukocytosis: Qualified Codes: D72.829 - Elevated white blood cell count, unspecified Mary Armendariz May 22, 2017 08:59 Nick Ceballos MD May 22, 2017 14:01
[2017-05-22] MEDS ORDERED: SODIUM CHLORIDE 0.9% FLUSH 10 ML FLUSH IV FLUSH SCH (09:00)
[2017-05-22] MEDS: DOCUSATE SODIUM 50 MG/SENNA 8.6 MG TAB PO SCH ×2 (09:09→21:51)
[2017-05-22] MEDS: MIDODRINE 5 MG TAB PO SCH ×3 (09:10→17:18)
[2017-05-22] MEDS: FAMOTIDINE 20 MG/2 ML VIAL IV PUSH SCH ×2 (09:10→21:51)
[2017-05-22] MEDS: SODIUM CHLORIDE 0.9% FLUSH 10 ML FLUSH IV FLUSH SCH ×2 (09:10→21:00)
[2017-05-22] MEDS: RESP: ALBUTEROL 2.5 MG/IPRATROPIUM 0.5 MG NEB (SCH) INH ×2 (09:29→16:00)
--- NOTE | 2017-05-22 10:49 | RADRPT ---
EXAM DATE/TIME: 05/22/2017 07:54 [facility] COMPARISON: No previous studies available for comparison. INDICATIONS : Nausea/vomiting. Increased BUN/creatinine. MEDICAL HISTORY : Arthritis. Seizures. Confusion. SURGICAL HISTORY : Cholecystectomy. Pilonidal cyst removal. Bilateral total hip replacements. Blood transfusions. ENCOUNTER: Initial ACUITY: 2 days PAIN SCORE: 4/10 LOCATION: Abdomen. MEASUREMENTS: LIVER: 20.2 cm length COMMON DUCT: 12 mm RIGHT KIDNEY: 12.8 x 4.9 x 5.2 cm LEFT KIDNEY: 12.8 x 5.1 x 6.4 cm SPLEEN: 12.1 cm length AORTA: 2.2cm maximal FINDINGS: Ultrasound of the upper abdomen demonstrates increased echogenicity of the liver compatible with fatt y infiltration or hepatocellular disease. The spleen is unremarkable. The intrahepatic ducts and comm on bile duct are prominent which may reflect reservoir effect though the pancreatic duct is also enla rged. MRI is recommended for further evaluation if clinically indicated. The gallbladder is surgicall y absent. The kidneys are normal bilaterally without evidence of mass or hydronephrosis. CONCLUSION: 1. No evidence of acute abdominal process. No masses are identified. 2. Dilatation of the common duct and pancreatic duct which may reflect reservoir affect. MRCP could b e performed for further evaluation if clinically indicated. 3. Echogenic liver compatible with fatty infiltration or hepatocellular disease. Jh Ochoa MD on May 22, 2017 at 10:44 Board Certified Radiologist. This report was verified electronically.
[2017-05-22] MEDS: LINEZOLID 600 MG PREMIX 300 ML IV SCH (10:58)
--- NOTE | 2017-05-22 13:59 | HHI.PR ---
Subjective Remarks Seen at bedside this am. denies any complains Objective Vital Signs Date Time Temp Pulse Resp B/P (MAP) Pulse Ox O2 Delivery O2 Flow Rate FiO2 05/22/17 12:30 76 22 103/52 (69) 92 05/22/17 12:00 98.8 72 17 102/56 (71) 91 05/22/17 12:00 72 05/22/17 11:30 76 16 96/50 (65) 92 05/22/17 11:00 84 20 111/60 (77) 92 05/22/17 10:32 90 28 106/60 (75) 92 05/22/17 10:00 82 05/22/17 10:00 82 05/22/17 10:00 82 22 91/53 (66) 92 05/22/17 09:32 93 Nasal Cannula 6.00 05/22/17 09:30 80 20 101/55 (70) 93 05/22/17 09:02 80 19 99/51 (67) 92 05/22/17 09:00 99.0 80 14 74/43 (53) 92 05/22/17 08:48 78 17 98/49 (65) 91 05/22/17 08:00 92 Nasal Cannula 6.00 05/22/17 08:00 91 05/22/17 08:00 91 05/22/17 08:00 80 19 84/46 (59) 90 05/22/17 07:36 86 22 95/45 (62) 94 05/22/17 06:19 91 05/22/17 06:18 84 18 107/52 (70) 90 05/22/17 06:00 98.2 91 23 110/52 (71) 94 05/22/17 04:31 90 24 92/48 (63) 97 05/22/17 04:00 92 24 92/48 (63) 96 05/22/17 04:00 90 05/22/17 03:34 96 35 99/47 (64) 97 05/22/17 03:20 96 26 113/69 (84) 96 05/22/17 02:36 90 23 95/54 (68) 98 05/22/17 02:15 92 22 131/54 (79) 96 05/22/17 02:00 91 05/22/17 01:54 97 24 93/49 (64) 98 05/22/17 01:28 92 22 89/47 (61) 95 05/22/17 01:04 81 23 83/46 (58) 89 05/22/17 01:00 97 Partial Rebreather 12.00 05/22/17 00:33 84 23 96/49 (65) 90 05/22/17 00:00 86 22 75/48 (57) 90 05/22/17 00:00 82 05/21/17 23:34 94 Nasal Cannula 6.00 05/21/17 23:04 99.2 84 27 80/46 (57) 91 05/21/17 23:00 80 05/21/17 22:00 92 20 83/52 (62) 91 05/21/17 22:00 86 05/21/17 21:00 94 20 95/66 (76) 90 05/21/17 20:00 88 15 90/54 (66) 91 05/21/17 20:00 88 05/21/17 19:00 92 Nasal Cannula 92 05/21/17 19:00 98.9 87 12 93/53 (66) 90 05/21/17 18:35 88 13 98/54 (69) 93 05/21/17 18:00 94 05/21/17 17:21 96 13 97/54 (68) 92 05/21/17 17:20 97/54 (68) 05/21/17 17:00 90 11 98/52 (67) 91 05/21/17 16:39 98.7 05/21/17 16:30 90/50 (63) 05/21/17 16:00 94 05/21/17 15:30 94/48 (63) 05/21/17 15:00 90/50 (63) 05/21/17 15:00 90 05/21/17 14:30 90/54 (66) 05/21/17 14:03 95 12 81/50 (60) 05/21/17 14:00 95 12 81/50 (60) 05/21/17 14:00 90 05/21/17 13:31 93 12 90/40 (57) 96 I/O 05/21/17 05/21/17 05/21/17 05/22/17 05/22/17 05/22/17 07:00 15:00 23:00 07:00 15:00 23:00 Intake Total 30 ml 1500 ml 1370 ml 100 ml 850 ml Output Total 525 ml 150 ml 450 ml Balance -495 ml 1500 ml 1220 ml -350 ml 850 ml Intake Oral 30 ml IV Total 1500 ml 1370 ml 100 ml 850 ml Output Urine Total 525 ml 150 ml 450 ml # Bowel Movements 0 Result Diagram: 05/22/17 0154 05/22/17 0145 Imaging Last 24 hours Impressions Abdomen Ultrasound 05/22/17 0000 Signed Impressions: Service Date/Time: Monday, May 22, 2017 07:54 - CONCLUSION: 1. No evidence of acute abdominal process. No masses are identified. 2. Dilatation of the common duct and pancreatic duct which may reflect reservoir affect. MRCP could be performed for further evaluation if clinically indicated. 3. Echogenic liver compatible with fatty infiltration or hepatocellular disease. Jh Ochoa MD Procedures Objective Remarks GENERAL:Well nourished in no apparent distress,oriented to self and part of her situation, remains pleasant SKIN: Warm and dry. HEAD: Atraumatic. Normocephalic. EYES: Pupils equal and round. No scleral icterus. No injection or drainage. ENT: No nasal bleeding or discharge. Mucous membranes pink and moist. NECK: Trachea midline. No JVD. CARDIOVASCULAR: Normal rate, regular rhythm. RESPIRATORY: Breath sounds diminished, no wheezes or rhonchi GASTROINTESTINAL: Abdomen soft, non-tender, nondistended. No guarding. MUSCULOSKELETAL: Extremities without clubbing, cyanosis, or edema. No obvious deformities. NEUROLOGICAL: GCS 14 .Awake and alert. follows commands Medications and IVs Current Medications Medications (Trade) Dose Ordered Sig/Magda Route Start Time Stop Time Status Last Admin (NS Flush) 2 ml UNSCH PRN IV FLUSH 05/20/17 18:00 (NS Flush) 2 ml BID IV FLUSH 05/20/17 21:00 05/22/17 09:10 (Lovenox Inj) 40 mg Q24H SQ 05/20/17 21:00 05/21/17 21:39 (Narcan Inj) 0.4 mg UNSCH PRN IV PUSH 05/20/17 18:00 Miscellaneous Information Patient in critical care unit? Ass... Q361D .XX 05/20/17 22:30 05/20/17 22:30 (Chlorhexidine 2% Cloth) 3 pack DAILY@04 TOPICAL 05/21/17 04:00 05/25/17 04:01 05/22/17 04:00 (Chlorhexidine 2% Cloth) 3 pack UNSCH PRN TOPICAL 05/20/17 22:30 05/25/17 22:18 (Levaquin) 250 mg DAILY@1800 PO 05/21/17 18:00 05/21/17 17:18 (Duoneb Neb) 1 ampule Q4HR NEB NEB 05/22/17 00:00 05/22/17 03:19 Phenylephrine HCl 160 mg/Dextrose 500 ml @ 7.5 mls/hr TITRATE PRN IV 05/22/17 01:15 (Brethine Inj) 1 mg UNSCH PRN SQ 05/22/17 01:15 (Tylenol) 650 mg Q6H PRN PO 05/22/17 07:00 (Pepcid Inj) 10 mg Q12HR IV PUSH 05/22/17 09:00 05/22/17 09:10 (Zofran Inj) 4 mg Q6H PRN IV PUSH 05/22/17 07:00 (Duoneb Neb) 1 ampule Q6HR NEB INH 05/22/17 10:00 05/22/17 09:29 (Shonna-Colace) 1 tab BID PO 05/22/17 09:00 05/22/17 09:09 (Milk Of Magnesia Liq) 30 ml Q12H PRN PO 05/22/17 07:00 (Senokot) 17.2 mg Q12H PRN PO 05/22/17 07:00 (Dulcolax Supp) 10 mg DAILY PRN RECTAL 05/22/17 07:00 (Lactulose Liq) 30 ml DAILY PRN PO 05/22/17 07:00 (Proamatine) 10 mg TID@07,12,17 PO 05/22/17 08:00 05/22/17 12:31 Dextrose/Sodium Chloride 1,000 ml @ 100 mls/hr Q10H IV 05/22/17 07:45 05/22/17 09:09 Linezolid 300 ml @ 300 mls/hr Q12H IV 05/22/17 11:00 05/22/17 10:58 Assessment and Plan Problem List: (1) Leukocytosis ICD Codes: D72.829 - Elevated white blood cell count, unspecified Status: Acute (2) YANNA (acute kidney injury) ICD Codes: N17.9 - Acute kidney failure, unspecified Status: Acute (3) Fall ICD Codes: W19.XXXA - Unspecified fall, initial encounter Status: Acute Assessment and Plan S/P fall likely related to Opiate use. No injury monitor pain, Tylenol prn Leukocytosis- ID consulted, UA with culture pending YANNA- renal consulted slight improvement with IVF Hypotension- IV bolus give, cont to monitor GI prophylaxis- Lovenox 40mg sq qd 05/22/17- Received call last night about deterioration in patients condition.Continued to be Hypotensive resp insufficiency. Fishing Guide consulted to assist with management. She is stable this am, B/P stable this am with a maintained MAP >65 Leukocytosis-WBC 25.5 - CXR negative, Urine culture no growth x 24 hours. Sputum and Blood cultures pending ID on case, Zyvox, Levaquin Hypotension- Responded overnight with Albumin, currently stable Midodrine tid, Abisai-Synephrine if needed, IVF Cardiac Echo results pending YANNA- Renal following, Kidney US pending, avoid nephro toxins Resp insufficiency- Maintain sat's >92, Neb treatment GI/DVT prophylaxis, Lovenox, Pepcid Problem Qualifiers (1) Leukocytosis: Qualified Codes: D72.829 - Elevated white blood cell count, unspecified (2) Fall: Qualified Codes: W19.XXXA - Unspecified fall, initial encounter Tanya Toro May 22, 2017 13:59
--- NOTE | 2017-05-22 15:12 | HHI.IDPN ---
Note Infectious Disease Note Patient is in no acute distress but she is confused. Insist on getting out of bed to go to the bathroom to urinate although she has a mai catheter in place. Afebrile. Denies pain, No SOB. 61-year-old white female was brought to the emergency department on 05/20/2017 after she was found at home following a fall. It is noted in the emergency department record that the patient was on the ground for three days. White blood cell count was elevated at 30.6 with left shift. She also was found to have acute renal failure. PAST MEDICAL HISTORY 1. Arthritis, 2. Bilateral hip replacement, 3. Anxiety, depression. ALLERGIES CEFEPIME CEFTAROLINE CEPHALEXIN PENICILLIN G PROPOXYPHENE MEDICATIONS Current Medications Medications (Trade) Dose Ordered Sig/Magda Route PRN Reason Start Time Stop Time Status Last Admin Dose Admin Sodium Chloride (NS Flush) 2 ml UNSCH PRN IV FLUSH FLUSH AFTER USING IV ACCESS 05/20/17 18:00 Sodium Chloride (NS Flush) 2 ml BID IV FLUSH 05/20/17 21:00 05/22/17 09:10 Enoxaparin Sodium (Lovenox Inj) 40 mg Q24H SQ 05/20/17 21:00 05/21/17 21:39 Naloxone HCl (Narcan Inj) 0.4 mg UNSCH PRN IV PUSH SEE LABEL COMMENTS 05/20/17 18:00 Miscellaneous Information Patient in critical care unit? Ass... Q361D .XX 05/20/17 22:30 05/20/17 22:30 Chlorhexidine Gluconate (Chlorhexidine 2% Cloth) 3 pack DAILY@04 TOPICAL 05/21/17 04:00 05/25/17 04:01 05/22/17 04:00 Chlorhexidine Gluconate (Chlorhexidine 2% Cloth) 3 pack UNSCH PRN TOPICAL HYGIENIC CARE 05/20/17 22:30 05/25/17 22:18 Levofloxacin (Levaquin) 250 mg DAILY@1800 PO 05/21/17 18:00 05/21/17 17:18 Albuterol/ Ipratropium (Duoneb Neb) 1 ampule Q4HR NEB NEB 05/22/17 00:00 05/22/17 03:19 Phenylephrine HCl 160 mg/Dextrose 500 ml @ 7.5 mls/hr TITRATE PRN IV Blood pressure management 05/22/17 01:15 Terbutaline Sulfate (Brethine Inj) 1 mg UNSCH PRN SQ For Extravasation 05/22/17 01:15 Acetaminophen (Tylenol) 650 mg Q6H PRN PO PAIN 1-10 AND/OR FEVER >101F 05/22/17 07:00 Famotidine (Pepcid Inj) 10 mg Q12HR IV PUSH 05/22/17 09:00 05/22/17 09:10 Ondansetron HCl (Zofran Inj) 4 mg Q6H PRN IV PUSH NAUSEA OR VOMITING 05/22/17 07:00 Albuterol/ Ipratropium (Duoneb Neb) 1 ampule Q6HR NEB INH 05/22/17 10:00 05/22/17 09:29 Senna/Docusate Sodium (Shonna-Colace) 1 tab BID PO 05/22/17 09:00 05/22/17 09:09 Magnesium Hydroxide (Milk Of Magnesia Liq) 30 ml Q12H PRN PO Mild constipation 05/22/17 07:00 Sennosides (Senokot) 17.2 mg Q12H PRN PO Moderate constipation 05/22/17 07:00 Bisacodyl (Dulcolax Supp) 10 mg DAILY PRN RECTAL SEVERE CONSITIPATION 05/22/17 07:00 Lactulose (Lactulose Liq) 30 ml DAILY PRN PO SEVERE CONSITIPATION 05/22/17 07:00 Midodrine (Proamatine) 10 mg TID@07,12,17 PO 05/22/17 08:00 05/22/17 12:31 Dextrose/Sodium Chloride 1,000 ml @ 100 mls/hr Q10H IV 05/22/17 07:45 05/22/17 09:09 Linezolid 300 ml @ 300 mls/hr Q12H IV 05/22/17 11:00 05/22/17 10:58 OBJECTIVE: Vital Signs Date Time Temp Pulse Resp B/P (MAP) Pulse Ox O2 Delivery O2 Flow Rate FiO2 05/22/17 14:00 70 05/22/17 14:00 70 17 127/70 (89) 91 05/22/17 13:30 74 18 103/51 (68) 92 05/22/17 13:00 72 18 108/49 (68) 91 05/22/17 12:30 76 22 103/52 (69) 92 05/22/17 12:00 98.8 72 17 102/56 (71) 91 05/22/17 12:00 72 05/22/17 11:30 76 16 96/50 (65) 92 05/22/17 11:00 84 20 111/60 (77) 92 05/22/17 10:32 90 28 106/60 (75) 92 05/22/17 10:00 82 05/22/17 10:00 82 05/22/17 10:00 82 22 91/53 (66) 92 05/22/17 09:32 93 Nasal Cannula 6.00 05/22/17 09:30 80 20 101/55 (70) 93 05/22/17 09:02 80 19 99/51 (67) 92 05/22/17 09:00 99.0 80 14 74/43 (53) 92 05/22/17 08:48 78 17 98/49 (65) 91 05/22/17 08:00 92 Nasal Cannula 6.00 05/22/17 08:00 91 05/22/17 08:00 91 05/22/17 08:00 80 19 84/46 (59) 90 05/22/17 07:36 86 22 95/45 (62) 94 05/22/17 06:19 91 05/22/17 06:18 84 18 107/52 (70) 90 05/22/17 06:00 98.2 91 23 110/52 (71) 94 05/22/17 04:31 90 24 92/48 (63) 97 05/22/17 04:00 92 24 92/48 (63) 96 05/22/17 04:00 90 05/22/17 03:34 96 35 99/47 (64) 97 05/22/17 03:20 96 26 113/69 (84) 96 05/22/17 02:36 90 23 95/54 (68) 98 05/22/17 02:15 92 22 131/54 (79) 96 05/22/17 02:00 91 05/22/17 01:54 97 24 93/49 (64) 98 05/22/17 01:28 92 22 89/47 (61) 95 05/22/17 01:04 81 23 83/46 (58) 89 05/22/17 01:00 97 Partial Rebreather 12.00 05/22/17 00:33 84 23 96/49 (65) 90 05/22/17 00:00 86 22 75/48 (57) 90 05/22/17 00:00 82 05/21/17 23:34 94 Nasal Cannula 6.00 05/21/17 23:04 99.2 84 27 80/46 (57) 91 05/21/17 23:00 80 05/21/17 22:00 92 20 83/52 (62) 91 05/21/17 22:00 86 05/21/17 21:00 94 20 95/66 (76) 90 05/21/17 20:00 88 15 90/54 (66) 91 05/21/17 20:00 88 05/21/17 19:00 92 Nasal Cannula 92 05/21/17 19:00 98.9 87 12 93/53 (66) 90 05/21/17 18:35 88 13 98/54 (69) 93 05/21/17 18:00 94 05/21/17 17:21 96 13 97/54 (68) 92 05/21/17 17:20 97/54 (68) 05/21/17 17:00 90 11 98/52 (67) 91 05/21/17 16:39 98.7 05/21/17 16:30 90/50 (63) 05/21/17 16:00 94 05/21/17 15:30 94/48 (63) Laboratory Tests Test 05/20/17 16:25 05/21/17 04:27 05/22/17 01:54 White Blood Count 30.6 TH/MM3 23.3 TH/MM3 25.5 TH/MM3 Red Blood Count 4.52 MIL/MM3 4.23 MIL/MM3 3.87 MIL/MM3 Hemoglobin 13.7 GM/DL 12.4 GM/DL 11.6 GM/DL Hematocrit 41.5 % 38.4 % 35.2 % Mean Corpuscular Volume 91.8 FL 91.0 FL 91.1 FL Mean Corpuscular Hemoglobin 30.4 PG 29.3 PG 30.0 PG Mean Corpuscular Hemoglobin Concent 33.1 % 32.2 % 32.9 % Red Cell Distribution Width 13.8 % 13.8 % 13.9 % Platelet Count 277 TH/MM3 237 TH/MM3 222 TH/MM3 Mean Platelet Volume 8.1 FL 8.3 FL 8.8 FL Neutrophils (%) (Auto) 90.8 % 92.9 % 91.0 % Lymphocytes (%) (Auto) 4.7 % 3.7 % 5.7 % Monocytes (%) (Auto) 3.6 % 3.1 % 2.8 % Eosinophils (%) (Auto) 0.0 % 0.1 % 0.4 % Basophils (%) (Auto) 0.9 % 0.2 % 0.1 % Neutrophils # (Auto) 27.8 TH/MM3 21.6 TH/MM3 23.2 TH/MM3 Lymphocytes # (Auto) 1.4 TH/MM3 0.9 TH/MM3 1.5 TH/MM3 Monocytes # (Auto) 1.1 TH/MM3 0.7 TH/MM3 0.7 TH/MM3 Eosinophils # (Auto) 0.0 TH/MM3 0.0 TH/MM3 0.1 TH/MM3 Basophils # (Auto) 0.3 TH/MM3 0.0 TH/MM3 0.0 TH/MM3 CBC Comment AUTO DIFF DIFF FINAL AUTO DIFF Differential Comment AUTO DIFF CONFIRMED FINAL DIFF MANUAL Differential Total Cells Counted 100 Neutrophils % (Manual) 75 % Band Neutrophils % 20 % Lymphocytes % 4 % Monocytes % 1 % Neutrophils # (Manual) 24.2 TH/MM3 Platelet Estimate NORMAL Platelet Morphology Comment NORMAL Red Cell Morphology Comment NORMAL Laboratory Tests Test 05/20/17 16:25 05/21/17 04:27 05/22/17 01:45 Blood Urea Nitrogen 34 MG/DL 40 MG/DL 55 MG/DL Creatinine 1.90 MG/DL 1.80 MG/DL 2.30 MG/DL Random Glucose 83 MG/DL 70 MG/DL 114 MG/DL Total Protein 7.2 GM/DL 6.4 GM/DL 6.4 GM/DL Albumin 2.7 GM/DL 2.3 GM/DL 2.2 GM/DL Calcium Level 8.5 MG/DL 8.0 MG/DL 7.5 MG/DL Alkaline Phosphatase 257 U/L 252 U/L 286 U/L Aspartate Amino Transf (AST/SGOT) 63 U/L 45 U/L 33 U/L Alanine Aminotransferase (ALT/SGPT) 22 U/L 17 U/L 13 U/L Total Bilirubin 2.3 MG/DL 2.3 MG/DL 1.4 MG/DL Sodium Level 138 MEQ/L 142 MEQ/L 144 MEQ/L Potassium Level 4.7 MEQ/L 4.6 MEQ/L 4.4 MEQ/L Chloride Level 104 MEQ/L 110 MEQ/L 113 MEQ/L Carbon Dioxide Level 23.0 MEQ/L 22.7 MEQ/L 20.5 MEQ/L Anion Gap 11 MEQ/L 9 MEQ/L 11 MEQ/L Estimat Glomerular Filtration Rate 27 ML/MIN 29 ML/MIN 22 ML/MIN Total Creatine Kinase 255 U/L 69 U/L Creatine Kinase MB 3.1 NG/ML Creatine Kinase MB % 1.2 % Troponin I LESS THAN 0.02 NG/ML B-Type Natriuretic Peptide 115 PG/ML Phosphorus Level 3.9 MG/DL Magnesium Level 2.1 MG/DL Lactic Acid Level 0.8 mmol/L Ammonia LESS THAN 10 MCMOL/L Amylase Level 16 U/L Lipase 45 U/L Thyroid Stimulating Hormone 3rd Gen 0.148 uIU/ML Microbiology Date/Time Source Procedure Growth Status 05/22/17 01:49 Blood Peripheral Aerobic Blood Culture Pending Received 05/22/17 01:49 Blood Peripheral Anaerobic Blood Culture Pending Received 05/22/17 01:45 Blood Peripheral Aerobic Blood Culture Pending Received 05/22/17 01:45 Blood Peripheral Anaerobic Blood Culture Pending Received 05/22/17 05:20 Nasal Aspirate Influenza Types A,B Antigen (LEAH) - Final NEGATIVE FOR FLU A AND B ANTIGEN.... Complete 05/22/17 01:45 Sputum Expectorated Sputum Gram Stain - Final Resulted 05/22/17 01:45 Sputum Expectorated Sputum Sputum Culture Pending Resulted 05/22/17 09:30 Urine Catheterized Urine Legionella Antigen - Final PRESUMPTIVE NEGATIVE FOR LEGIONELLA P... Complete 05/22/17 09:30 Urine Catheterized Urine Streptococcus pneumoniae Antigen (M - Final PRESUMPTIVE NEGATIVE FOR STREPTOCOCCU... Complete 05/20/17 17:50 Urine Clean Catch Urine Culture - Final NO GROWTH IN 48 HOURS. Complete PHYSICAL EXAMINATION GENERAL: No acute distress. She is awake and confused. HEENT: Head atraumatic. Extraocular movements grossly intact. No icterus. Oropharynx mucosa moist. NECK: Supple without adenopathy or swelling. LUNGS: Bilateral basilar rhonchi. HEART: Regular rate and rhythm without audible murmurs, rubs or gallops. ABDOMEN: Bowel sounds present, soft, no tenderness appreciated. EXTREMITIES: No clubbing, cyanosis or edema. SKIN: No diffuse rash. NEUROLOGIC: No gross focal findings PSYCHIATRIC: Calm and cooperative. IMPRESSION Leukocytosis probably secondary to urinary tract infection. Altered mental status ? secondary to infection. Possible pneumonia RECOMMENDATIONS 1. Continue Levaquin. 2. Add Zyvox. 3. Follow blood and sputum culture. 4. Monitor clinical status. 5. Monitor for other source of infection. Antolin Conrad MD May 22, 2017 15:12
--- NOTE | 2017-05-22 16:17 | ECHRPT ---
Indication: POSS SEPSIS, ENDOCARDITIS CONCLUSIONS Normal left ventricular size. Wall thickness is normal. The left ventricular systolic function is low normal with an estimated ejection fraction in the rang e of 50- 55%. The left atrial size is mildly dilated. The right atrial size is mildly dilated. Mild mitral valve regurgitation. Trace aortic valve regurgitation. Aortic valve sclerosis is present. Moderate Aortic Stenosis There is mild tricuspid valve regurgitation. The estimated pulmonary arterial pressure is 57.6 mmHg. BP: 107 / 52 HR: 91 Rhythm: Sinus MEASUREMENTS (Male / Female) Normal Values Technical Quality:Fair 2D ECHO LV Diastolic Diameter PLAX 4.8 cm 4.2 - 5.9 / 3.9 - 5.3 cm LV Systolic Diameter PLAX 3.8 cm IVS Diastolic Thickness 0.8 cm 0.6 - 1.0 / 0.6 - 0.9 cm LVPW Diastolic Thickness 0.8 cm 0.6 - 1.0 / 0.6 - 0.9 cm LV Relative Wall Thickness 0.3 RV Internal Dim ED PLAX 2.6 cm LVOT Diameter 1.7 cm Aortic Root Diameter 2.4 cm LA Systolic Diameter LX 3.2 cm 3.0 - 4.0 / 2.7 - 3.8 cm DOPPLER AV Peak Velocity 401.0 cm/s AV Peak Gradient 64.3 mmHg AV Mean Gradient 34.0 mmHg AV Velocity Time Integral 81.8 cm LVOT Peak Velocity 69.9 cm/s LVOT Peak Gradient 2.0 mmHg LVOT Velocity Time Integral 14.8 cm LVOT Cardiac Index 1527.5 cm/minm AV Area Cont Eq vti 0.4 cm AV Area Cont Eq pk 0.4 cm Mitral E Point Velocity 126.0 cm/s Mitral A Point Velocity 99.2 cm/s Mitral E to A Ratio 1.3 LV E' Lateral Velocity 6.9 cm/s Mitral E to LV E' Lateral Ratio 18.2 LV E' Septal Velocity 7.3 cm/s Mitral E to LV E' Septal Ratio 17.2 TR Peak Velocity 345.0 cm/s TR Peak Gradient 47.6 mmHg Right Atrial Pressure 10.0 mmHg Pulmonary Artery Systolic Pressu 57.6 mmHg Right Ventricular Systolic Press 57.6 mmHg PV Peak Velocity 72.2 cm/s PV Peak Gradient 2.1 mmHg FINDINGS LEFT VENTRICLE Normal left ventricular size. Wall thickness is normal. The left ventricular systolic function is low normal with an estimated ejection fraction in the rang e of 50- 55%. RIGHT VENTRICLE Normal right ventricular size and systolic function. LEFT ATRIUM The left atrial size is mildly dilated. RIGHT ATRIUM The right atrial size is mildly dilated. ATRIAL SEPTUM Normal atrial septal thickness without atrial level shunting by limited color doppler interrogation. AORTA The aortic root and proximal ascending aorta are normal in size on limited imaging. MITRAL VALVE Mild mitral valve regurgitation. AORTIC VALVE Trace aortic valve regurgitation. Aortic valve sclerosis is present. Aortic valve area is 0.41 cm. Aortic valve mean gradient is 34 mmHg. TRICUSPID VALVE There is mild tricuspid valve regurgitation. The estimated pulmonary arterial pressure is 57.6 mmHg. PULMONARY VALVE No pulmonary valve regurgitation or stenosis. VESSELS The inferior vena cava is normal in size. PERICARDIUM No pericardial effusion. Lane Reddy MD (Electronically Signed) Final Date:22 May 2017 16:15
[2017-05-22] MEDS: LEVOFLOXACIN 250 MG TAB PO SCH (17:17)
[2017-05-22] MEDS: HALOPERIDOL LACTATE 5 MG/ML AMP IV PUSH PRN (20:00)
--- NOTE | 2017-05-22 21:34 | EKG ---
Date Performed: 05/22/2017 Time Performed: 07:39:13 PTAGE: 61 years EKG: Sinus rhythm NORMAL ECG PREVIOUS TRACING : 12/01/1997 02.02 Compared to prior tracing no significant change DOCTOR: Alpesh Burgos Interpretating Date/Time 05/22/2017 21:34:07
[2017-05-22] MEDS: ENOXAPARIN SODIUM 40 MG/0.4 ML SYRINGE SQ SCH (21:51)
[2017-05-22] MEDS: ZIPRASIDONE MESYLATE 20 MG VIAL IM PRN (22:01)
[2017-05-23] VITALS (29 sets, daily range): BP systolic 107–172; BP diastolic 45–96; PULSE 53–98; RESP 18–36; TEMP 97.8–98.7; O2SAT 93–96
[2017-05-23] MEDS: LINEZOLID 600 MG PREMIX 300 ML IV SCH ×3 (00:46→23:48)
[2017-05-23] MEDS: RESP: ALBUTEROL 2.5 MG/IPRATROPIUM 0.5 MG NEB (SCH) INH ×4 (03:20→21:16)
[2017-05-23] MEDS: DEXT 5%-NACL 0.9% 1000 ML INJ 1,000 ML IV SCH (03:45)
[2017-05-23] MEDS ORDERED: CHLORHEXIDINE GLUCONATE 2 % 1 PACK (2 CLOTHS) TOP SCH (04:00)
[2017-05-23] MEDS: CHLORHEXIDINE GLUCONATE 2 % 1 PACK (2 CLOTHS)(taper/protocol) TOPICAL SCH (04:00)
[2017-05-23 05:48] LABS: BASOPHIL % 0.1 % (0.0-2.0); EOSINOPHIL # 0.2 TH/MM3 (0-0.4); EOSINOPHIL % 0.7 % (0.0-4.0); HEMATOCRIT 35.1 % (35.0-46.0); HEMOGLOBIN 11.3 GM/DL (11.6-15.3); LYMPH % 7.3 % (9.0-44.0); LYMPHOCYTE # 1.6 TH/MM3 (1.0-4.8); MEAN CELL VOLUME 91.3 FL (80.0-100.0); MEAN CORPUSCULAR HEMOGLOBIN 29.3 PG (27.0-34.0); MEAN CORPUSCULAR HGB CONC 32.1 % (32.0-36.0); MEAN PLATELET VOLUME 8.5 FL (7.0-11.0); MONO % 2.1 % (0.0-8.0); MONOCYTE # 0.5 TH/MM3 (0-0.9); NEUT % 89.8 % (16.0-70.0); PLATELET COUNT 222 TH/MM3 (150-450); RED BLOOD COUNT 3.85 MIL/MM3 (4.00-5.30); WHITE BLOOD COUNT 22.3 TH/MM3 (4.0-11.0)
[2017-05-23 06:01] LABS: ALBUMIN 2.1 GM/DL (3.4-5.0); BICARBONATE 20.9 MEQ/L (21.0-32.0); CALCIUM 8.3 MG/DL (8.5-10.1); CHLORIDE 119 MEQ/L (98-107); GLUCOSE,RANDOM 134 MG/DL (74-106); MAGNESIUM 2.1 MG/DL (1.5-2.5); SODIUM (NA) 148 MEQ/L (136-145)
[2017-05-23 06:02] LABS: BLOOD UREA NITROGEN 49 MG/DL (7-18)
[2017-05-23 06:09] LABS: ALKALINE PHOSPHATASE 290 U/L (45-117); ALT (GPT) 12 U/L (10-53); AST (GOT) 38 U/L (15-37); GLOMERULAR FILTRATION RATE 33 ML/MIN (>89); PHOSPHORUS 1.9 MG/DL (2.5-4.9); TOTAL BILIRUBIN ADULT 0.9 MG/DL (0.2-1.0); TOTAL PROTEIN 5.9 GM/DL (6.4-8.2)
--- NOTE | 2017-05-23 06:36 | RADRPT ---
EXAM DATE/TIME: 05/23/2017 06:20 [facility] COMPARISON: CHEST SINGLE AP, May 20, 2017, 16:27. INDICATIONS : Shortness of breath. MEDICAL HISTORY : Arthritis. Seizures. Confusion SURGICAL HISTORY : Cholecystectomy. Pilonidal cyst removal. Bilateral total hip replacements. ENCOUNTER: Subsequent ACUITY: 3 days PAIN SCORE: 6/10 LOCATION: Bilateral chest FINDINGS: Single AP view of the chest. New bilateral interstitial opacity with lower lung zone predominance. Ca rdiomediastinal silhouette within normal limits. No evidence of pleural effusion or pneumothorax. CONCLUSION: New bilateral interstitial pulmonary opacity suggesting mild pulmonary edema. Otf Wright MD on May 23, 2017 at 6:33 Board Certified Radiologist. This report was verified electronically.
--- NOTE | 2017-05-23 07:23 | HHI.CCPN ---
Subjective Remarks/Hospital Course This is a 61 y/o female found on floor after a fall in the bathroom, where it is reported she laid on floor for 3 days. She was obtunded, Narcan was given and she started to wake up. She complains of pain in the left hip pain. X-ray in ED negative for fracture on 05/21/2016.The patient is S/P L ROBLES done in November 2016. In the ED , laboratory studies were performed and she was found to have elevated WBC, Cxr negative. UA has culture pending, and leukocytosis. She was admitted to the hospital and in the last 24 hours the patient has continued to have altered mental status, laboratory results continued with leukocytosis and bandemia ID was consulted the patient was noted to have a KI nephrology was consulted. During the night the patient was noted to become hypotensive SBP 80- 90's, and noted increasing FiO2 requirements currently on partial nonrebreather , of note Midodrine was discontinued. Critical care medicine was consulted, low -dose phenylephrine was ordered, however the patient received 250 cc of 5% albumin and currently is normotensive. Subjective: 05/23: Afebrile. Overnight the patient became agitated required Haldol 1 dose, and Geodon. Imaging and laboratory studies reveal leukocytosis resolving, creatinine is improving, however out going phosphatase continues to be elevated. Ultrasound of abdomen revealed dilation of the common duct and the pancreatic duct, MRI is pending. Echo revealed pulmonary hypertension, with chest x-ray showing mild pulmonary edema IV fluids has been decreased awaiting formal swallow secondary to confusion in order to initiate a diet. Objective Vital Signs Date Time Temp Pulse Resp B/P (MAP) Pulse Ox O2 Delivery O2 Flow Rate FiO2 05/23/17 06:18 88 05/23/17 06:00 19 126/62 (83) 95 05/23/17 04:00 98.7 05/22/17 20:18 Nasal Cannula 6.00 05/21/17 19:00 92 Intake and Output 05/23/17 05/23/17 05/24/17 08:00 16:00 00:00 Intake Total 300 ml Output Total 800 ml Balance -500 ml Result Diagram: 05/23/17 0534 05/23/17 0534 Other Results Microbiology Date/Time Source Procedure Growth Status 05/22/17 05:20 Nasal Aspirate Influenza Types A,B Antigen (LEAH) - Final NEGATIVE FOR FLU A AND B ANTIGEN.... Complete 05/22/17 09:30 Urine Catheterized Urine Legionella Antigen - Final PRESUMPTIVE NEGATIVE FOR LEGIONELLA P... Complete 05/22/17 09:30 Urine Catheterized Urine Streptococcus pneumoniae Antigen (M - Final PRESUMPTIVE NEGATIVE FOR STREPTOCOCCU... Complete 05/20/17 17:50 Urine Clean Catch Urine Culture - Final NO GROWTH IN 48 HOURS. Complete Imaging Last Impressions Chest X-Ray 05/21/17 0000 Signed Impressions: Service Date/Time: May 15:41 - CONCLUSION: No acute cardiopulmonary disease. Edita Ayala MD Hip and Pelvis X-Ray 05/20/17 1612 Signed Impressions: Service Date/Time: Saturday, May 20, 2017 16:27 - CONCLUSION: Arthroplasty in anatomic alignment without fracture. Garland Webb MD FACR Objective Remarks GENERAL: This is a well-developed well-nourished obese female, confused and appropriate conversation answers to questions, but follows commands. Lethargic this a.m. SKIN: Warm and dry. HEAD: Atraumatic. Normocephalic. EYES: Pupils equal and round. No scleral icterus. No injection or drainage. ENT: No nasal bleeding or discharge. Mucous membranes pink and moist. NECK: Trachea midline. No JVD. CARDIOVASCULAR: Normal rate, regular rhythm. Noted systolic ejection murmur 2/ 6. Telemetry- sinus rhythm RESPIRATORY: No accessory muscle use. Scattered rhonchi , cleared with coughing. Breath sounds equal bilaterally. Currently on partial nonrebreather GASTROINTESTINAL: Abdomen soft, non-tender, nondistended. No guarding. MUSCULOSKELETAL: Extremities without clubbing, cyanosis, or edema. No obvious deformities. NEUROLOGICAL: GCS 14 .Awake and alert. RASS 0. No gross focal/sensory deficits. Follows commands in all 4 extremities. Urinary Catheter: Yes Assessment to: Continue A/P Problem List: (1) YANNA (acute kidney injury) ICD Code: N17.9 - Acute kidney failure, unspecified Status: Acute (2) Bandemia ICD Code: D72.825 - Bandemia Status: Acute (3) Tobacco abuse disorder ICD Code: Z72.0 - Tobacco use Status: Chronic (4) Encephalopathy acute ICD Code: G93.40 - Encephalopathy, unspecified Status: Acute (5) Leukocytosis ICD Code: D72.829 - Elevated white blood cell count, unspecified Status: Acute (6) Pulmonary hypertension ICD Code: I27.20 - Pulmonary hypertension, unspecified Status: Chronic (7) Fall ICD Code: W19.XXXA - Unspecified fall, initial encounter Status: Acute (8) Hepatic steatosis ICD Code: K76.0 - Fatty (change of) liver, not elsewhere classified Status: Chronic Assessment and Plan This is a 61 year old female, with altered mental status status post fall with sepsis and persistent leukocytosis, and YANNA , with noted elevated alkaline phosphatase levels as well as the 2/6 systolic ejection murmur. Plan by systems: Neurologic: Metabolic encephalopathy Depression Neurochecks per ICU protocol Avoid long-acting sedative type medications Patient's home medications included Tylenol No. 3, Cymbalta DR, tizanidine- continue to place on hold Tylenol 650 mg every 6 hours when necessary for pain and/or fever GCS 14 Geodon 10 mg every 12 hours, PRN for agitation Respiratory: Acute respiratory insufficiency Tobacco abuse Pulmonary edema Maintain O2 saturation greater than 92% Provide O2 via nasal cannula 1-4 liters, a chin currently on 4 L nasal cannula Bronchodilators every 6 hours schedule Consider incentive spirometry if patient is cooperative Maintain head of bed 30 IV fluids discontinued to KVO Cardiovascular: Hypotension-resolved Midodrine 10mg 3 times a day Consider phenylephrine infusion with central line placement if required to maintain MAP greater than 65 Maintain MAP greater than 65 Obtain echo-evaluate function ,rule out endocarditis Renal: YANNA Maintain Lo catheter Nephrology following urine output improved- 1300 in last 24 hours Follow-up ultrasound kidney bladder Creatinine improved 2.8->1.6 Avoiding nephrotoxins-patient previously on naproxen sodium, discontinued upon admission to hospital. Avoid NSAIDs FeNa 0.38 -- Strict I/Os FEN/GI: Electrolyte derangement IV fluid D5 NS @100cc/hr discontinued, D5 1/2 normal saline @ KVO Maintain nothing by mouth -advance diet post formal speech evaluation upon their recommendations Following procedures bedside swallow assessment 2/2 confusion-live asked diet US abdomen noted continued elevation alkaline phosphatase 252->286->290 today. No acute process, however dilation of the common duct and the pancreatic duct. Plan to follow-up with MRI, dependent on results consider GI consult MRI [id number] results Zofran for nausea Famotidine GI prophylaxis Heme/ID: Persistent leukocytosis Bandemia ID following-Dr. Conrad 05/21 blood cultures-NGTD / urine culture-NGTD, trace leukocyte esterase Antibiotic management per ID-Levaquin and Zyvox Legionella and pneumococcal urine antigens-negative Influenza negative Endocrine: Glucose monitoring per ICU protocol -- SSI Prophylaxis: GI Prophylaxis Famotidine BID DVT Prophylaxis -- SCDs Lovenox every 24 hours Lines: Peripheral IVs 2. central line if indicated Dispo: Level II follow-up Plan transfer to [facility] Physician Radha Cardenas Problem Qualifiers (1) Leukocytosis: Qualified Codes: D72.829 - Elevated white blood cell count, unspecified (2) Fall: Qualified Codes: W19.XXXA - Unspecified fall, initial encounter Radha Cardenas MD May 23, 2017 07:23
[2017-05-23] MEDS: MIDODRINE 5 MG TAB PO SCH ×3 (08:21→17:00)
[2017-05-23] MEDS: FAMOTIDINE 20 MG/2 ML VIAL IV PUSH SCH ×2 (08:21→19:21)
[2017-05-23] MEDS: DOCUSATE SODIUM 50 MG/SENNA 8.6 MG TAB PO SCH ×2 (08:21→19:20)
[2017-05-23] MEDS: SODIUM CHLORIDE 0.9% FLUSH 10 ML FLUSH IV FLUSH SCH ×2 (08:22→19:20)
[2017-05-23] MEDS: DEXT 5%-NACL 0.45% 1000 ML INJ 1,000 ML IV SCH (08:27)
[2017-05-23] MEDS: HALOPERIDOL LACTATE 5 MG/ML AMP IV PUSH PRN ×2 (10:26→15:24)
[2017-05-23 11:11] LABS: CHOLESTEROL 133 MG/DL (120-200); TRIGLYCERIDES 193 MG/DL (42-150)
[2017-05-23 11:12] LABS: CHOLESTEROL/ HDL RATIO 13.71 RATIO; HDL CHOLESTEROL 9.7 MG/DL (40.0-60.0); LDL CHOLESTEROL 85 MG/DL (0-99)
--- NOTE | 2017-05-23 13:49 | HHI.PR ---
Subjective Remarks Awake and alert and agitated, but could answer questions. She is on O2 but C/O SOB with O2 sats of 94% and appears quite anxious. ID and Intensivists are following. Alk Phos is high and Common bile duct is dilated with steatosis of the liver present and MRI of the abd has been ordered. She is receiving Geodon and Haldol for agitation with intermittent response. Her renal function is improving based on renal aval. Objective Vital Signs Date Time Temp Pulse Resp B/P (MAP) Pulse Ox O2 Delivery O2 Flow Rate FiO2 05/23/17 13:00 58 26 122/64 (83) 93 05/23/17 12:22 77 05/23/17 12:21 62 31 140/78 (98) 93 05/23/17 12:21 62 31 140/78 (98) 93 05/23/17 10:26 58 35 115/72 (86) 93 05/23/17 10:26 58 35 115/72 (86) 93 05/23/17 10:12 95 Nasal Cannula 2.00 05/23/17 10:00 89 05/23/17 09:00 68 26 140/63 (88) 95 05/23/17 08:00 53 05/23/17 08:00 78 24 113/86 (95) 95 05/23/17 07:00 Nasal Cannula 6.00 92 05/23/17 07:00 98.4 82 23 120/61 (80) 95 05/23/17 06:18 88 05/23/17 06:00 80 19 126/62 (83) 95 05/23/17 05:00 80 27 124/56 (78) 95 05/23/17 04:00 94 05/23/17 04:00 98.7 82 22 126/45 (72) 94 05/23/17 03:00 82 25 144/62 (89) 95 05/23/17 02:00 86 05/23/17 02:00 76 18 125/64 (84) 96 05/23/17 01:00 70 20 126/70 (88) 95 05/23/17 00:00 70 20 107/60 (76) 94 05/23/17 00:00 78 05/22/17 23:34 72 21 98/54 (69) 94 05/22/17 22:32 64 19 107/71 (83) 95 05/22/17 22:15 58 17 117/71 (86) 94 05/22/17 22:00 67 05/22/17 21:15 59 26 135/70 (91) 94 05/22/17 20:30 66 29 114/65 (81) 94 05/22/17 20:30 66 29 114/65 (81) 94 05/22/17 20:18 94 Nasal Cannula 6.00 05/22/17 20:00 64 21 96/50 (65) 90 05/22/17 20:00 90 05/22/17 19:37 88 26 181/66 (104) 92 05/22/17 19:00 92 Nasal Cannula 6.00 05/22/17 19:00 98.9 108 28 199/119 (145) 94 05/22/17 18:30 66 22 137/70 (92) 91 05/22/17 18:00 68 05/22/17 18:00 68 19 122/65 (84) 91 05/22/17 17:30 68 18 119/64 (82) 91 05/22/17 17:00 66 24 121/67 (85) 90 05/22/17 16:30 84 23 133/63 (86) 93 05/22/17 16:00 99.2 74 26 126/62 (83) 90 05/22/17 16:00 74 05/22/17 15:30 84 27 120/82 (95) 91 05/22/17 15:00 78 24 131/88 (102) 91 05/22/17 14:30 76 17 133/60 (84) 89 05/22/17 14:00 70 05/22/17 14:00 70 17 127/70 (89) 91 I/O 05/22/17 05/22/17 05/22/17 05/23/17 05/23/17 05/23/17 07:00 15:00 23:00 07:00 15:00 23:00 Intake Total 150 ml 1150 ml 1000 ml 300 ml 982 ml Output Total 450 ml 500 ml 800 ml 450 ml Balance -300 ml 1150 ml 500 ml -500 ml 532 ml IV Total 150 ml 1150 ml 1000 ml 300 ml 982 ml Output Urine Total 450 ml 500 ml 800 ml 450 ml # Bowel Movements 0 Result Diagram: 05/23/17 0534 05/23/17 0534 Imaging Last 24 hours Impressions Chest X-Ray 05/23/17 0600 Signed Impressions: Service Date/Time: Tuesday, May 23, 2017 06:20 - CONCLUSION: New bilateral interstitial pulmonary opacity suggesting mild pulmonary edema. Otf Wright MD Procedures Other Results HEENT - AT and NC, Resp with exp wheezes, CV RRR without Murmur, Abd soft and nontender, Neuro alert but agitated Objective Remarks IVF was reduced due to pulm edema and swallowing eval pending. Medications and IVs Current Medications Medications (Trade) Dose Ordered Sig/Magda Route Start Time Stop Time Status Last Admin (NS Flush) 2 ml UNSCH PRN IV FLUSH 05/20/17 18:00 (NS Flush) 2 ml BID IV FLUSH 05/20/17 21:00 05/23/17 08:22 (Lovenox Inj) 40 mg Q24H SQ 05/20/17 21:00 05/22/17 21:51 (Narcan Inj) 0.4 mg UNSCH PRN IV PUSH 05/20/17 18:00 Miscellaneous Information Patient in critical care unit? Ass... [id number] .XX 05/20/17 22:30 05/20/17 22:30 (Chlorhexidine 2% Cloth) 3 pack DAILY@04 TOPICAL 05/21/17 04:00 05/25/17 04:01 05/23/17 04:00 (Chlorhexidine 2% Cloth) 3 pack UNSCH PRN TOPICAL 05/20/17 22:30 05/25/17 22:18 (Levaquin) 250 mg DAILY@1800 PO 05/21/17 18:00 05/22/17 17:17 Phenylephrine HCl 160 mg/Dextrose 500 ml @ 7.5 mls/hr TITRATE PRN IV 05/22/17 01:15 (Brethine Inj) 1 mg UNSCH PRN SQ 05/22/17 01:15 (Tylenol) 650 mg Q6H PRN PO 05/22/17 07:00 (Pepcid Inj) 10 mg Q12HR IV PUSH 05/22/17 09:00 05/23/17 08:21 (Zofran Inj) 4 mg Q6H PRN IV PUSH 05/22/17 07:00 (Duoneb Neb) 1 ampule Q6HR NEB INH 05/22/17 10:00 05/23/17 10:10 (Shonna-Colace) 1 tab BID PO 05/22/17 09:00 05/23/17 08:21 (Milk Of Magnesia Liq) 30 ml Q12H PRN PO 05/22/17 07:00 (Senokot) 17.2 mg Q12H PRN PO 05/22/17 07:00 (Dulcolax Supp) 10 mg DAILY PRN RECTAL 05/22/17 07:00 (Lactulose Liq) 30 ml DAILY PRN PO 05/22/17 07:00 (Proamatine) 10 mg TID@07,12,17 PO 05/22/17 08:00 05/23/17 08:21 Linezolid 300 ml @ 300 mls/hr Q12H IV 05/22/17 11:00 05/23/17 10:27 (Haldol Inj) 2 mg Q4HR PRN IV PUSH 05/22/17 19:45 05/23/17 10:26 (Geodon Inj) 10 mg Q12H PRN IM 05/22/17 19:45 05/25/17 19:44 05/22/17 22:01 Dextrose/Sodium Chloride 1,000 ml @ 30 mls/hr Q24H IV 05/23/17 07:00 05/23/17 08:27 Last Impressions Chest X-Ray 05/23/17 0600 Signed Impressions: Service Date/Time: Tuesday, May 23, 2017 06:20 - CONCLUSION: New bilateral interstitial pulmonary opacity suggesting mild pulmonary edema. Otf Wright MD Abdomen Ultrasound 05/22/17 0000 Signed Impressions: Service Date/Time: Monday, May 22, 2017 07:54 - CONCLUSION: 1. No evidence of acute abdominal process. No masses are identified. 2. Dilatation of the common duct and pancreatic duct which may reflect reservoir affect. MRCP could be performed for further evaluation if clinically indicated. 3. Echogenic liver compatible with fatty infiltration or hepatocellular disease. Jh Ochoa MD Hip and Pelvis X-Ray 05/20/17 1612 Signed Impressions: Service Date/Time: Saturday, May 20, 2017 16:27 - CONCLUSION: Arthroplasty in anatomic alignment without fracture. Garland Webb MD FACR Assessment and Plan Problem List: (1) Leukocytosis ICD Codes: D72.829 - Elevated white blood cell count, unspecified Status: Acute (2) YANNA (acute kidney injury) ICD Codes: N17.9 - Acute kidney failure, unspecified Status: Acute Plan: improved (3) Encephalopathy acute ICD Codes: G93.40 - Encephalopathy, unspecified Status: Acute Plan: cont haldol and Geodon (4) Bandemia ICD Codes: D72.825 - Bandemia Status: Acute Plan: F/U ID recommendations (5) Pulmonary hypertension ICD Codes: I27.20 - Pulmonary hypertension, unspecified Status: Chronic Plan: avoid volume overload (6) Hepatic steatosis ICD Codes: K76.0 - Fatty (change of) liver, not elsewhere classified Status: Chronic Plan: abd MRI as ordered Discussed Condition With RN and patient Discharge Planning Home when stable Problem Qualifiers (1) Leukocytosis: Qualified Codes: D72.825 - Bandemia Leo Tamez May 23, 2017 13:49
--- NOTE | 2017-05-23 15:49 | MB ---
cc: FARZANEH BLACK DATE OF CONSULTATION: 05/23/2017. REASON FOR CONSULTATION: Evaluation of abnormal imaging studies. Dilated common bile duct. HISTORY OF PRESENT ILLNESS: 61-year-old female who had a total hip replacement surgery in November of last year. Apparently the patient had fallen at home and was found on the floor in the bathroom where it was reported that she had been there for approximately three days. She was able to get to a phone and called EMS and she was transported her to the hospital and admitted to the intensive care unit. She was given Narcan initially. She complained of pain in her hip. X-rays were negative apparently. She has altered mental status with profound confusion. She initially had leukocytosis with bandemia and Dr. Conrad was consulted. She also had some renal insufficiency and nephrology also has been consulted. She has received IV fluids, albumin and also IV antibiotics. She has been agitated and she has required some Haldol therapy as well. Her confusion continues. I was asked to evaluate her regarding common bile duct on an imaging study; specifically an ultrasound was obtained of the abdomen and it was reported the common bile duct was noted to be dilated to 12 mm. The patient has had a previous cholecystectomy as well. The pancreatic duct was slightly dilated as well. No obvious masses were seen. It was recommended the patient undergo MRI and MRCP evaluation for further input. LABORATORY DATA: Other labs at this time: Her hemoglobin is 11 to 12 grams, white count initially was 30,000 down 22,000. Her liver enzymes are basically in the normal range. Her transaminases are 38/12. Bilirubin was 2.3 on admission and now it is normal at 0.9. The alkaline phosphatase is slightly elevated at 290. She does not exhibit any abdominal pain. She does complain of some left lower inguinal or hip pain. Her current blood pressure is approximately 130/78. Once again, she is alert but quite confused and moving about in the bed. PAST MEDICAL HISTORY: Her past medical history is remarkable for: 1. Bilateral hip replacement. 2. Anxiety. 3. Depression. 4. Arthritis. 5. I cannot elicit the other history as the patient is confused. ALLERGIES: 1. PENICILLIN. 2. PROPOXYPHENE. 3. CEPHALOSPORINS. OTHER REPORTED MEDICATIONS: 1. Tylenol #3. 2. Xanax. 3. Cymbalta. FAMILY HISTORY: Family history is unobtainable at this time. SOCIAL HISTORY: Also unknown. REVIEW OF SYSTEMS: As stated above. Once again, the patient cannot give us an adequate history to determine exactly what her symptoms were prior to admission. PHYSICAL EXAMINATION: GENERAL: A well-developed female who is alert but confused and in no acute distress. VITAL SIGNS: Her vital signs are currently stable. She is afebrile. She is normotensive. HEAD, EYES, EARS, NOSE, THROAT: Atraumatic. The sclerae are nonicteric. Oral mucosa extremely dry. She is edentulous. NECK: Neck is supple. CARDIAC: Cardiac exam S1-S2 regular rhythm. CHEST: Some scattered rhonchi, otherwise clear. ABDOMEN: The abdomen is flat, soft, nontender. No organomegaly or masses. Bowel sounds are present. There is no rebound tenderness. FURTHER LABS: PT, INR in normal range. Electrolytes are stable. White count is down to 25,000. Lipase is normal. Creatinine on admission was 2.3, and currently it is at 1.6. IMPRESSION: This is a 61-year female admitted with mental status changes and confusion. Initially the patient was hypotensive and now she is normotensive with fluids and resuscitation measures. She remains confused. White count is decreasing. There is a question as to whether the patient may have had sepsis syndrome as well. Her ultrasound study revealed dilated common bile duct at 12 mL post cholecystectomy. There was some slight dilation of the pancreatic duct as well. Liver enzymes remain essentially normal with slightly elevated alkaline phosphatase. PLAN: 1. The patient is still combative. When she is more comfortable and able to undergo imaging studies, I would proceed with MRCP and even a possible MRI of the liver if her creatinine allows us to proceed with contrast. 2. No need for acute endoscopic intervention at this time. 3. At some point, endoscopic ultrasound might also prove to be useful to evaluate the patient. This could be considered after we complete our imaging studies as mentioned above. 4. Would continue to monitor liver enzymes. 5. Continue hydration and supportive therapy. Will follow up with you. Thank you for this consult. MD ARIELA Arenas/AMARA /1:20 PM /3:20 PM
--- NOTE | 2017-05-23 16:23 | MB ---
cc: FARZANEH BLACK DATE OF CONSULTATION: 05/23/2017 REASON FOR CONSULTATION: Abnormal ultrasound findings of dilated common bile duct. DATE OF : 1955. HISTORY OF PRESENT ILLNESS: This is a 56-year-old female initially admitted. She was found on the floor at home. After three days, she managed to get to a phone and call [facility]. The patient presented to the emergency room quite confused and hypotensive. She was given fluids and a low dose phenylephrine as well. Her blood pressure increased post resuscitative measures. She remains confused. She did have elevated white count to 30,000 and it is now 25,000. Infectious disease and nephrology were also consulted. She had an ultrasound which showed a dilated common bile duct of 12 mm. There was some suggestion of a dilated pancreatic duct as well. No masses were seen. MRI or MRCP was suggested. She has remained afebrile. PAST MEDICAL HISTORY: As per the records. She has a history of anxiety as well. PAST SURGICAL HISTORY: She has a previous history of bilateral hip surgeries. Other history is unobtainable. ALLERGIES: 1. CEPHALOSPORINS. 2. PENICILLIN. MEDICATIONS AT HOME: 1. Tylenol. 2. Xanax. 3. Cymbalta. SOCIAL HISTORY: Apparently negative for alcohol. It is unknown if the patient has had illicit drug use. REVIEW OF SYSTEMS: The twelve-point review of systems is as stated above. Limited information is available because of the patient's confused mental status. LABS: Her labs were reviewed. Hemoglobin was 13. Platelet count was normal. Liver enzymes were normal except for slightly elevated alkaline phosphatase. White count is down to 23,000. Creatinine was at 1.6 today, it was 2.3 earlier. IMAGING STUDIES: Chest x-ray shows no acute pulmonary disease. EXAMINATION: GENERAL: Well-developed female confused and in no acute distress. VITAL SIGNS: She is normotensive. HEAD, EYES, EARS, NOSE, THROAT: Atraumatic. Normocephalic. Oral mucosa is dry. Edentulous. NECK: Neck is supple. CARDIAC: Cardiac exam S1-S2 regular rhythm. CHEST: Occasional rhonchi otherwise clear. ABDOMEN: The abdomen is flat and nontender. Bowel sounds are present. EXTREMITIES: The patient does complain of some left hip pain. No organomegaly or masses. EXTREMITIES: Without peripheral edema or cyanosis. IMPRESSION: Dilated common bile duct noted on ultrasound study. Transaminases are normal. Bilirubin is normal. Alkaline phosphatase is minimally elevated. The patient may have sepsis syndrome, which has improved with IV fluids. She has renal insufficiency perhaps due to the prerenal factors. PLAN: 1. Would continue aggressive hydration, IV medications and antibiotics per the medical service. 2. When the patient is less combative and confused, we could consider MRCP and MRI of the abdomen as well for further evaluation. 3. Endoscopic ultrasound may also be of benefit later on to better define the anatomy at hand. I will continue to monitor the patient with you and follow her liver enzymes. Thank you kindly for this consult. MD ARIELA Arenas/AMARA /1:42 PM /4:00 PM
[2017-05-23] MEDS: LEVOFLOXACIN 250 MG TAB PO SCH (17:24)
--- NOTE | 2017-05-23 18:20 | HHI.NPPN ---
Subjective Renal Failure: Acute Review of Systems General Constitutional: Fatigue Objective Data Data 05/23/17 05/24/17 19:00 07:00 Intake Total 1325 ml Output Total 750 ml Balance 575 ml IV Total 1325 ml Output Urine Total 750 ml # Bowel Movements 2 Vital Signs Date Time Temp Pulse Resp B/P (MAP) Pulse Ox O2 Delivery O2 Flow Rate FiO2 05/23/17 18:03 90 05/23/17 18:00 92 26 147/96 (113) 95 05/23/17 17:00 64 30 172/67 (102) 94 05/23/17 16:00 98.5 90 34 149/76 (100) 95 05/23/17 16:00 58 05/23/17 15:00 84 29 153/77 (102) 95 05/23/17 14:00 94 05/23/17 14:00 86 32 145/74 (97) 94 05/23/17 13:00 58 26 122/64 (83) 93 05/23/17 12:22 77 05/23/17 12:21 62 31 140/78 (98) 93 05/23/17 12:21 62 31 140/78 (98) 93 05/23/17 10:26 58 35 115/72 (86) 93 05/23/17 10:26 58 35 115/72 (86) 93 05/23/17 10:12 95 Nasal Cannula 2.00 05/23/17 10:00 89 05/23/17 09:00 68 26 140/63 (88) 95 05/23/17 08:00 53 05/23/17 08:00 78 24 113/86 (95) 95 05/23/17 07:00 Nasal Cannula 6.00 92 05/23/17 07:00 98.4 82 23 120/61 (80) 95 05/23/17 06:18 88 05/23/17 06:00 80 19 126/62 (83) 95 05/23/17 05:00 80 27 124/56 (78) 95 05/23/17 04:00 94 05/23/17 04:00 98.7 82 22 126/45 (72) 94 05/23/17 03:00 82 25 144/62 (89) 95 05/23/17 02:00 86 05/23/17 02:00 76 18 125/64 (84) 96 05/23/17 01:00 70 20 126/70 (88) 95 05/23/17 00:00 70 20 107/60 (76) 94 05/23/17 00:00 78 05/22/17 23:34 72 21 98/54 (69) 94 05/22/17 22:32 64 19 107/71 (83) 95 05/22/17 22:15 58 17 117/71 (86) 94 05/22/17 22:00 67 05/22/17 21:15 59 26 135/70 (91) 94 05/22/17 20:30 66 29 114/65 (81) 94 05/22/17 20:30 66 29 114/65 (81) 94 05/22/17 20:18 94 Nasal Cannula 6.00 05/22/17 20:00 64 21 96/50 (65) 90 05/22/17 20:00 90 05/22/17 19:37 88 26 181/66 (104) 92 05/22/17 19:00 92 Nasal Cannula 6.00 05/22/17 19:00 98.9 108 28 199/119 (145) 94 05/22/17 18:30 66 22 137/70 (92) 91 -: 05/23/17 0534 05/23/17 0534 Tubes & Lines: Lo Physical Exam General Appearance: No Acute Distress, Comfortable Eyes Eye Exam: Pupils Equal Pulmonary Resp Exam: Crackles, Rhonchi Cardiology CV Exam: Regular, Normal Sinus Rhythm Gastrointestinal/Abdomen GI Exam: Soft, Non-Tender, Bowel Sounds Present Musculoskeletal MS Exam: Joints Intact, Normal Tone, Unable to Ambulate Integumentary Skin Exam: Clear, Warm, Dry, Intact Extremeties Extremities Exam: No Edema, Pedal Pulses Palpable Neurologic Neuro Exam: Awake, Moving All Extremities Assessment/Plan Discussed Condition With: Patient Assessment Summary: YANNA/Acute Renal Failure, Dehydration, Hypotension Electrolyte Assessment: Metabolic Acidosis Problem List: (1) YANNA (acute kidney injury) ICD Codes: N17.9 - Acute kidney failure, unspecified Status: Acute Plan: Acute renal failure has resolved creatinine has declined to 1.6 Urine output Blood pressure improved with midodrine Ultrasound reviewed echogenic liver and dilatation of CBD and pancreatic duct, both kidneys of NORMAL size Nephrology to follow as needed (2) Leukocytosis ICD Codes: D72.829 - Elevated white blood cell count, unspecified Status: Acute Plan: ID has been consulted Suspected UTI, culture in progress Given multiple antibiotics , now on Levaquin Problem Qualifiers (1) Leukocytosis: Qualified Codes: D72.825 - Bandemia Rolando Cheek MD May 23, 2017 18:20
[2017-05-23] MEDS: ZIPRASIDONE MESYLATE 20 MG VIAL IM PRN (19:02)
[2017-05-23] MEDS: ENOXAPARIN SODIUM 40 MG/0.4 ML SYRINGE SQ SCH (19:20)
--- NOTE | 2017-05-23 20:24 | HHI.IDPN ---
Note Infectious Disease Note Patient remains confused. Only oriented to person. Afebrile. Not answering questions. Has loose stools. Receiving lactulose. 61-year-old white female was brought to the emergency department on 05/20/2017 after she was found at home following a fall. It is noted in the emergency department record that the patient was on the ground for three days. White blood cell count was elevated at 30.6 with left shift. She also was found to have acute renal failure. PAST MEDICAL HISTORY 1. Arthritis, 2. Bilateral hip replacement, 3. Anxiety, depression. ALLERGIES CEFEPIME CEFTAROLINE CEPHALEXIN PENICILLIN G PROPOXYPHENE MEDICATIONS Current Medications Medications (Trade) Dose Ordered Sig/Magda Route PRN Reason Start Time Stop Time Status Last Admin Dose Admin Sodium Chloride (NS Flush) 2 ml UNSCH PRN IV FLUSH FLUSH AFTER USING IV ACCESS 05/20/17 18:00 Sodium Chloride (NS Flush) 2 ml BID IV FLUSH 05/20/17 21:00 05/23/17 19:20 Enoxaparin Sodium (Lovenox Inj) 40 mg Q24H SQ 05/20/17 21:00 05/23/17 19:20 Naloxone HCl (Narcan Inj) 0.4 mg UNSCH PRN IV PUSH SEE LABEL COMMENTS 05/20/17 18:00 Miscellaneous Information Patient in critical care unit? Ass... Q361D .XX 05/20/17 22:30 05/20/17 22:30 Chlorhexidine Gluconate (Chlorhexidine 2% Cloth) 3 pack DAILY@04 TOPICAL 05/21/17 04:00 05/25/17 04:01 05/23/17 04:00 Chlorhexidine Gluconate (Chlorhexidine 2% Cloth) 3 pack UNSCH PRN TOPICAL HYGIENIC CARE 05/20/17 22:30 05/25/17 22:18 Levofloxacin (Levaquin) 250 mg DAILY@1800 PO 05/21/17 18:00 05/23/17 17:24 Phenylephrine HCl 160 mg/Dextrose 500 ml @ 7.5 mls/hr TITRATE PRN IV Blood pressure management 05/22/17 01:15 Terbutaline Sulfate (Brethine Inj) 1 mg UNSCH PRN SQ For Extravasation 05/22/17 01:15 Acetaminophen (Tylenol) 650 mg Q6H PRN PO PAIN 1-10 AND/OR FEVER >101F 05/22/17 07:00 Famotidine (Pepcid Inj) 10 mg Q12HR IV PUSH 05/22/17 09:00 05/23/17 19:21 Ondansetron HCl (Zofran Inj) 4 mg Q6H PRN IV PUSH NAUSEA OR VOMITING 05/22/17 07:00 Albuterol/ Ipratropium (Duoneb Neb) 1 ampule Q6HR NEB INH 05/22/17 10:00 05/23/17 16:16 Senna/Docusate Sodium (Shonna-Colace) 1 tab BID PO 05/22/17 09:00 05/23/17 08:21 Magnesium Hydroxide (Milk Of Magnesia Liq) 30 ml Q12H PRN PO Mild constipation 05/22/17 07:00 Sennosides (Senokot) 17.2 mg Q12H PRN PO Moderate constipation 05/22/17 07:00 Bisacodyl (Dulcolax Supp) 10 mg DAILY PRN RECTAL SEVERE CONSITIPATION 05/22/17 07:00 Lactulose (Lactulose Liq) 30 ml DAILY PRN PO SEVERE CONSITIPATION 05/22/17 07:00 Midodrine (Proamatine) 10 mg TID@07,12,17 PO 05/22/17 08:00 05/23/17 08:21 Linezolid 300 ml @ 300 mls/hr Q12H IV 05/22/17 11:00 05/23/17 10:27 Haloperidol Lactate (Haldol Inj) 2 mg Q4HR PRN IV PUSH agitation 05/22/17 19:45 05/23/17 15:24 Ziprasidone (Geodon Inj) 10 mg Q12H PRN IM breakthrough agitation 05/22/17 19:45 05/25/17 19:44 05/23/17 19:02 Dextrose/Sodium Chloride 1,000 ml @ 30 mls/hr Q24H IV 05/23/17 07:00 05/23/17 08:27 OBJECTIVE: Vital Signs Date Time Temp Pulse Resp B/P (MAP) Pulse Ox O2 Delivery O2 Flow Rate FiO2 05/23/17 20:00 97.8 80 32 152/66 (94) 95 05/23/17 19:00 98 36 165/88 (113) 95 05/23/17 19:00 Nasal Cannula 2.00 05/23/17 18:03 90 05/23/17 18:00 92 26 147/96 (113) 95 05/23/17 17:00 64 30 172/67 (102) 94 05/23/17 16:00 98.5 90 34 149/76 (100) 95 05/23/17 16:00 58 05/23/17 15:00 84 29 153/77 (102) 95 05/23/17 14:00 94 05/23/17 14:00 86 32 145/74 (97) 94 05/23/17 13:00 58 26 122/64 (83) 93 05/23/17 12:22 77 05/23/17 12:21 62 31 140/78 (98) 93 05/23/17 12:21 62 31 140/78 (98) 93 05/23/17 10:26 58 35 115/72 (86) 93 05/23/17 10:26 58 35 115/72 (86) 93 05/23/17 10:12 95 Nasal Cannula 2.00 05/23/17 10:00 89 05/23/17 09:00 68 26 140/63 (88) 95 05/23/17 08:00 53 05/23/17 08:00 78 24 113/86 (95) 95 05/23/17 07:00 Nasal Cannula 6.00 92 05/23/17 07:00 98.4 82 23 120/61 (80) 95 05/23/17 06:18 88 05/23/17 06:00 80 19 126/62 (83) 95 05/23/17 05:00 80 27 124/56 (78) 95 05/23/17 04:00 94 05/23/17 04:00 98.7 82 22 126/45 (72) 94 05/23/17 03:00 82 25 144/62 (89) 95 05/23/17 02:00 86 05/23/17 02:00 76 18 125/64 (84) 96 05/23/17 01:00 70 20 126/70 (88) 95 05/23/17 00:00 70 20 107/60 (76) 94 05/23/17 00:00 78 05/22/17 23:34 72 21 98/54 (69) 94 05/22/17 22:32 64 19 107/71 (83) 95 05/22/17 22:15 58 17 117/71 (86) 94 05/22/17 22:00 67 05/22/17 21:15 59 26 135/70 (91) 94 05/22/17 20:30 66 29 114/65 (81) 94 05/22/17 20:30 66 29 114/65 (81) 94 Laboratory Tests Test 05/22/17 01:54 05/23/17 05:34 White Blood Count 25.5 TH/MM3 22.3 TH/MM3 Red Blood Count 3.87 MIL/MM3 3.85 MIL/MM3 Hemoglobin 11.6 GM/DL 11.3 GM/DL Hematocrit 35.2 % 35.1 % Mean Corpuscular Volume 91.1 FL 91.3 FL Mean Corpuscular Hemoglobin 30.0 PG 29.3 PG Mean Corpuscular Hemoglobin Concent 32.9 % 32.1 % Red Cell Distribution Width 13.9 % 14.0 % Platelet Count 222 TH/MM3 222 TH/MM3 Mean Platelet Volume 8.8 FL 8.5 FL Neutrophils (%) (Auto) 91.0 % 89.8 % Lymphocytes (%) (Auto) 5.7 % 7.3 % Monocytes (%) (Auto) 2.8 % 2.1 % Eosinophils (%) (Auto) 0.4 % 0.7 % Basophils (%) (Auto) 0.1 % 0.1 % Neutrophils # (Auto) 23.2 TH/MM3 20.0 TH/MM3 Lymphocytes # (Auto) 1.5 TH/MM3 1.6 TH/MM3 Monocytes # (Auto) 0.7 TH/MM3 0.5 TH/MM3 Eosinophils # (Auto) 0.1 TH/MM3 0.2 TH/MM3 Basophils # (Auto) 0.0 TH/MM3 0.0 TH/MM3 CBC Comment AUTO DIFF AUTO DIFF Differential Total Cells Counted 100 Neutrophils % (Manual) 75 % Band Neutrophils % 20 % Lymphocytes % 4 % Monocytes % 1 % Neutrophils # (Manual) 24.2 TH/MM3 Differential Comment FINAL DIFF MANUAL AUTO DIFF CONFIRMED Platelet Estimate NORMAL NORMAL Platelet Morphology Comment NORMAL NORMAL Red Cell Morphology Comment NORMAL NORMAL Laboratory Tests Test 05/22/17 01:45 05/23/17 05:34 Blood Urea Nitrogen 55 MG/DL 49 MG/DL Creatinine 2.30 MG/DL 1.60 MG/DL Random Glucose 114 MG/DL 134 MG/DL Total Protein 6.4 GM/DL 5.9 GM/DL Albumin 2.2 GM/DL 2.1 GM/DL Calcium Level 7.5 MG/DL 8.3 MG/DL Phosphorus Level 3.9 MG/DL 1.9 MG/DL Magnesium Level 2.1 MG/DL 2.1 MG/DL Alkaline Phosphatase 286 U/L 290 U/L Aspartate Amino Transf (AST/SGOT) 33 U/L 38 U/L Alanine Aminotransferase (ALT/SGPT) 13 U/L 12 U/L Total Bilirubin 1.4 MG/DL 0.9 MG/DL Sodium Level 144 MEQ/L 148 MEQ/L Potassium Level 4.4 MEQ/L 3.5 MEQ/L Chloride Level 113 MEQ/L 119 MEQ/L Carbon Dioxide Level 20.5 MEQ/L 20.9 MEQ/L Anion Gap 11 MEQ/L 8 MEQ/L Estimat Glomerular Filtration Rate 22 ML/MIN 33 ML/MIN Lactic Acid Level 0.8 mmol/L Ammonia LESS THAN 10 MCMOL/L Total Creatine Kinase 69 U/L Amylase Level 16 U/L Lipase 45 U/L Thyroid Stimulating Hormone 3rd Gen 0.148 uIU/ML Triglycerides Level 193 MG/DL Cholesterol Level 133 MG/DL LDL Cholesterol 85 MG/DL HDL Cholesterol 9.7 MG/DL Cholesterol/HDL Ratio 13.71 RATIO Microbiology Date/Time Source Procedure Growth Status 05/22/17 01:49 Blood Peripheral Aerobic Blood Culture - Preliminary NO GROWTH IN 1 DAY Resulted 05/22/17 01:49 Blood Peripheral Anaerobic Blood Culture - Preliminary NO GROWTH IN 1 DAY Resulted 05/22/17 01:45 Blood Peripheral Aerobic Blood Culture - Preliminary NO GROWTH IN 1 DAY Resulted 05/22/17 01:45 Blood Peripheral Anaerobic Blood Culture - Preliminary NO GROWTH IN 1 DAY Resulted 05/22/17 05:20 Nasal Aspirate Influenza Types A,B Antigen (LEAH) - Final NEGATIVE FOR FLU A AND B ANTIGEN.... Complete 05/22/17 01:45 Sputum Expectorated Sputum Gram Stain - Final Resulted 05/22/17 01:45 Sputum Expectorated Sputum Sputum Culture - Preliminary HEAVY GROWTH NORMAL RESPIRATORY DALIA... Resulted 05/22/17 09:30 Urine Catheterized Urine Legionella Antigen - Final PRESUMPTIVE NEGATIVE FOR LEGIONELLA P... Complete 05/22/17 09:30 Urine Catheterized Urine Streptococcus pneumoniae Antigen (M - Final PRESUMPTIVE NEGATIVE FOR STREPTOCOCCU... Complete IMAGING: Chest X-Ray 05/23/17 0600 Signed Impressions: Service Date/Time: Tuesday, May 23, 2017 06:20 - CONCLUSION: New bilateral interstitial pulmonary opacity suggesting mild pulmonary edema. Otf Wright MD Abdomen Ultrasound 05/22/17 0000 Signed Impressions: Service Date/Time: Monday, May 22, 2017 07:54 - CONCLUSION: 1. No evidence of acute abdominal process. No masses are identified. 2. Dilatation of the common duct and pancreatic duct which may reflect reservoir affect. MRCP could be performed for further evaluation if clinically indicated. 3. Echogenic liver compatible with fatty infiltration or hepatocellular disease. Jh Ochoa MD Hip and Pelvis X-Ray 05/20/17 1612 Signed Impressions: Service Date/Time: Saturday, May 20, 2017 16:27 - CONCLUSION: Arthroplasty in anatomic alignment without fracture. Garland Webb MD FACR PHYSICAL EXAMINATION GENERAL: No acute distress. She is awake and confused. HEENT: Head atraumatic. Extraocular movements grossly intact. No icterus. Oropharynx mucosa moist. NECK: Supple without adenopathy or swelling. LUNGS: Bilateral basilar rhonchi. HEART: Regular rate and rhythm without audible murmurs, rubs or gallops. ABDOMEN: Bowel sounds present, soft, no tenderness appreciated. EXTREMITIES: No clubbing, cyanosis or edema. SKIN: No diffuse rash. NEUROLOGIC: No gross focal findings PSYCHIATRIC: Calm and cooperative. IMPRESSION Leukocytosis probably secondary to urinary tract infection. Altered mental status ? secondary to infection. Possible pneumonia RECOMMENDATIONS 1. Stop Levaquin. 2. Continue Zyvox. Follow platelet count. 3. Follow blood culture. 4. Monitor clinical status. 5. Monitor for other source of infection. Antolin Conrad MD May 23, 2017 20:24
[2017-05-24] VITALS (26 sets, daily range): BP systolic 118–184; BP diastolic 58–109; PULSE 60–94; RESP 25–39; TEMP 97.5–99; O2SAT 93–97
[2017-05-24] MEDS: RESP: ALBUTEROL 2.5 MG/IPRATROPIUM 0.5 MG NEB (SCH) INH ×4 (03:42→21:15)
[2017-05-24] MEDS: CHLORHEXIDINE GLUCONATE 2 % 1 PACK (2 CLOTHS)(taper/protocol) TOPICAL SCH (04:00)
[2017-05-24] MEDS: MIDODRINE 5 MG TAB PO SCH ×3 (04:45→17:00)
[2017-05-24 05:51] LABS: CHLORIDE 118 MEQ/L (98-107); SODIUM (NA) 149 MEQ/L (136-145)
[2017-05-24 05:54] LABS: CALCIUM 8.6 MG/DL (8.5-10.1)
[2017-05-24] MEDS: HALOPERIDOL LACTATE 5 MG/ML AMP IV PUSH PRN (05:54)
[2017-05-24 05:55] LABS: ALBUMIN 2.3 GM/DL (3.4-5.0); BICARBONATE 22.9 MEQ/L (21.0-32.0); BLOOD UREA NITROGEN 44 MG/DL (7-18); GLUCOSE,RANDOM 118 MG/DL (74-106)
[2017-05-24 05:58] LABS: ALT (GPT) 11 U/L (10-53); AST (GOT) 25 U/L (15-37); GLOMERULAR FILTRATION RATE 42 ML/MIN (>89)
[2017-05-24 05:59] LABS: TOTAL PROTEIN 6.2 GM/DL (6.4-8.2)
[2017-05-24 06:01] LABS: ALKALINE PHOSPHATASE 252 U/L (45-117)
[2017-05-24] MEDS: DOCUSATE SODIUM 50 MG/SENNA 8.6 MG TAB PO SCH ×2 (09:00→19:42)
[2017-05-24] MEDS: SODIUM CHLORIDE 0.9% FLUSH 10 ML FLUSH IV FLUSH SCH ×2 (09:00→19:42)
[2017-05-24] MEDS: ZIPRASIDONE MESYLATE 20 MG VIAL IM PRN ×2 (09:42→19:42)
[2017-05-24] MEDS: FAMOTIDINE 20 MG/2 ML VIAL IV PUSH SCH ×2 (09:44→19:42)
[2017-05-24] MEDS: LINEZOLID 600 MG PREMIX 300 ML IV SCH ×2 (10:06→22:07)
--- NOTE | 2017-05-24 11:49 | HHI.PR ---
Subjective Remarks Awake and alert and much less agitated but remains confused, but could answer questions. She is on O2 but no longer C/O SOB. ID, GI and Intensivists are following. Alk Phos is high and Common bile duct is dilated with steatosis of the liver present and W/U per GI as planned. She is receiving PRN Geodon and Haldol for agitatio. Her renal function is improving based on a doubling of her GFR in recent days. Renal is following for presumed prerenal azotemia. Objective Vital Signs Date Time Temp Pulse Resp B/P (MAP) Pulse Ox O2 Delivery O2 Flow Rate FiO2 05/24/17 11:00 68 25 123/69 (87) 95 05/24/17 10:00 94 27 167/79 (108) 96 05/24/17 10:00 94 05/24/17 09:56 96 21 05/24/17 09:00 80 32 161/71 (101) 96 05/24/17 08:00 65 05/24/17 08:00 94 Room Air 05/24/17 08:00 99.0 80 30 155/78 (103) 96 05/24/17 07:11 78 28 158/64 (95) 95 05/24/17 07:00 70 29 172/58 (96) 94 05/24/17 06:00 70 39 149/63 (91) 94 05/24/17 06:00 70 05/24/17 05:00 68 28 152/73 (99) 93 05/24/17 04:00 86 05/24/17 04:00 99.0 86 28 163/90 (114) 95 05/24/17 03:00 72 39 149/84 (105) 94 05/24/17 02:00 82 05/24/17 02:00 82 35 156/78 (104) 95 05/24/17 01:00 78 34 135/67 (89) 96 05/24/17 00:00 92 05/24/17 00:00 98.7 92 39 152/72 (98) 94 05/23/17 23:00 72 29 166/75 (105) 94 05/23/17 22:00 80 29 136/86 (103) 94 05/23/17 22:00 80 05/23/17 21:17 94 Nasal Cannula 2.00 05/23/17 21:00 70 31 151/65 (93) 95 05/23/17 20:00 97.8 80 32 152/66 (94) 95 05/23/17 20:00 80 05/23/17 19:00 98 36 165/88 (113) 95 05/23/17 19:00 Nasal Cannula 2.00 05/23/17 18:03 90 05/23/17 18:00 92 26 147/96 (113) 95 05/23/17 17:00 64 30 172/67 (102) 94 05/23/17 16:00 98.5 90 34 149/76 (100) 95 05/23/17 16:00 58 05/23/17 15:00 84 29 153/77 (102) 95 05/23/17 14:00 94 05/23/17 14:00 86 32 145/74 (97) 94 05/23/17 13:00 58 26 122/64 (83) 93 05/23/17 12:22 77 05/23/17 12:21 62 31 140/78 (98) 93 05/23/17 12:21 62 31 140/78 (98) 93 I/O 05/23/17 05/23/17 05/23/17 05/24/17 05/24/17 05/24/17 07:00 15:00 23:00 07:00 15:00 23:00 Intake Total 300 ml 982 ml 343 ml 300 ml 720 ml Output Total 800 ml 450 ml 300 ml 800 ml Balance -500 ml 532 ml 43 ml -500 ml 720 ml IV Total 300 ml 982 ml 343 ml 300 ml 720 ml Output Urine Total 800 ml 450 ml 300 ml 800 ml # Bowel Movements 2 2 Result Diagram: 05/23/17 0534 05/24/17 0531 Procedures Other Results HEENT - She is awake and less anxious but remains confused, Resp - Lungs are now CTA, CV - RRR without M,R,G, Abd - Soft and nontender with active BS. Objective Remarks IVF was reduced due to pulm edema and swallowing eval pending. Medications and IVs Current Medications Medications (Trade) Dose Ordered Sig/Magda Route Start Time Stop Time Status Last Admin (NS Flush) 2 ml UNSCH PRN IV FLUSH 05/20/17 18:00 (NS Flush) 2 ml BID IV FLUSH 05/20/17 21:00 05/23/17 19:20 (Lovenox Inj) 40 mg Q24H SQ 05/20/17 21:00 05/23/17 19:20 (Narcan Inj) 0.4 mg UNSCH PRN IV PUSH 05/20/17 18:00 Miscellaneous Information Patient in critical care unit? Ass... Q361D .XX 05/20/17 22:30 05/20/17 22:30 (Chlorhexidine 2% Cloth) 3 pack DAILY@04 TOPICAL 05/21/17 04:00 05/25/17 04:01 05/24/17 04:00 (Chlorhexidine 2% Cloth) 3 pack UNSCH PRN TOPICAL 05/20/17 22:30 05/25/17 22:18 (Levaquin) 250 mg DAILY@1800 PO 05/21/17 18:00 05/23/17 17:24 Phenylephrine HCl 160 mg/Dextrose 500 ml @ 7.5 mls/hr TITRATE PRN IV 05/22/17 01:15 (Brethine Inj) 1 mg UNSCH PRN SQ 05/22/17 01:15 (Tylenol) 650 mg Q6H PRN PO 05/22/17 07:00 (Pepcid Inj) 10 mg Q12HR IV PUSH 05/22/17 09:00 05/24/17 09:44 (Zofran Inj) 4 mg Q6H PRN IV PUSH 05/22/17 07:00 (Duoneb Neb) 1 ampule Q6HR NEB INH 05/22/17 10:00 05/24/17 09:56 (Shonna-Colace) 1 tab BID PO 05/22/17 09:00 05/23/17 08:21 (Milk Of Magnesia Liq) 30 ml Q12H PRN PO 05/22/17 07:00 (Senokot) 17.2 mg Q12H PRN PO 05/22/17 07:00 (Dulcolax Supp) 10 mg DAILY PRN RECTAL 05/22/17 07:00 (Lactulose Liq) 30 ml DAILY PRN PO 05/22/17 07:00 (Proamatine) 10 mg TID@07,12,17 PO 05/22/17 08:00 05/23/17 08:21 Linezolid 300 ml @ 300 mls/hr Q12H IV 05/22/17 11:00 05/24/17 10:06 (Haldol Inj) 2 mg Q4HR PRN IV PUSH 05/22/17 19:45 05/24/17 05:54 (Geodon Inj) 10 mg Q12H PRN IM 05/22/17 19:45 05/25/17 19:44 05/24/17 09:42 Dextrose/Sodium Chloride 1,000 ml @ 30 mls/hr Q24H IV 05/23/17 07:00 05/23/17 08:27 Assessment and Plan Problem List: (1) Leukocytosis ICD Codes: D72.829 - Elevated white blood cell count, unspecified Status: Acute (2) YANNA (acute kidney injury) ICD Codes: N17.9 - Acute kidney failure, unspecified Status: Acute Plan: improved (3) Encephalopathy acute ICD Codes: G93.40 - Encephalopathy, unspecified Status: Acute Plan: cont haldol and Geodon (4) Bandemia ICD Codes: D72.825 - Bandemia Status: Acute Plan: F/U ID recommendations (5) Pulmonary hypertension ICD Codes: I27.20 - Pulmonary hypertension, unspecified Status: Chronic Plan: avoid volume overload (6) Hepatic steatosis ICD Codes: K76.0 - Fatty (change of) liver, not elsewhere classified Status: Chronic Plan: W/U per GI plans Leo Tamez May 24, 2017 11:49
[2017-05-24] MEDS: LEVOFLOXACIN 250 MG TAB PO SCH (17:33)
[2017-05-24] MEDS: ENOXAPARIN SODIUM 40 MG/0.4 ML SYRINGE SQ SCH (19:43)
[2017-05-24] MEDS: traZODone HCL 50 MG TAB PO PRN (22:18)
[2017-05-25] VITALS (32 sets, daily range): BP systolic 118–174; BP diastolic 54–84; PULSE 61–84; RESP 18–44; TEMP 98.1–98.9; O2SAT 90–96
[2017-05-25] MEDS: HALOPERIDOL LACTATE 5 MG/ML AMP IV PUSH PRN (02:28)
[2017-05-25] MEDS: RESP: ALBUTEROL 2.5 MG/IPRATROPIUM 0.5 MG NEB (SCH) INH ×4 (04:00→21:47)
[2017-05-25] MEDS: CHLORHEXIDINE GLUCONATE 2 % 1 PACK (2 CLOTHS)(taper/protocol) TOPICAL SCH (04:00)
[2017-05-25] MEDS: MIDODRINE 5 MG TAB PO SCH ×3 (04:40→17:00)
[2017-05-25] MEDS: DEXT 5%-NACL 0.45% 1000 ML INJ 1,000 ML IV SCH ×2 (07:00→21:15)
[2017-05-25] MEDS: FAMOTIDINE 20 MG/2 ML VIAL IV PUSH SCH ×2 (07:32→21:00)
[2017-05-25] MEDS: NICOTINE 21 MG/24 HR PATCH T-DERMAL SCH (07:32)
[2017-05-25] MEDS: DOCUSATE SODIUM 50 MG/SENNA 8.6 MG TAB PO SCH ×2 (07:33→21:00)
[2017-05-25] MEDS: SODIUM CHLORIDE 0.9% FLUSH 10 ML FLUSH IV FLUSH SCH ×2 (07:33→21:00)
[2017-05-25 08:20] LABS: AUTOMATED NEUTROPHIL # 15.1 TH/MM3 (1.8-7.7); BASOPHIL % 0.2 % (0.0-2.0); EOSINOPHIL % 0.1 % (0.0-4.0); HEMATOCRIT 33.7 % (35.0-46.0); HEMOGLOBIN 11.1 GM/DL (11.6-15.3); LYMPH % 11.4 % (9.0-44.0); LYMPHOCYTE # 2.1 TH/MM3 (1.0-4.8); MEAN CELL VOLUME 88.9 FL (80.0-100.0); MEAN CORPUSCULAR HEMOGLOBIN 29.2 PG (27.0-34.0); MEAN CORPUSCULAR HGB CONC 32.8 % (32.0-36.0); MEAN PLATELET VOLUME 8.5 FL (7.0-11.0); MONOCYTE # 0.9 TH/MM3 (0-0.9); NEUT % 83.3 % (16.0-70.0); PLATELET COUNT 240 TH/MM3 (150-450); RED BLOOD COUNT 3.79 MIL/MM3 (4.00-5.30); RED CELL DISTRIBUTION WIDTH 13.9 % (11.6-17.2); WHITE BLOOD COUNT 18.1 TH/MM3 (4.0-11.0)
[2017-05-25 08:27] LABS: CHLORIDE 114 MEQ/L (98-107); SODIUM (NA) 148 MEQ/L (136-145)
[2017-05-25 08:31] LABS: ALBUMIN 2.2 GM/DL (3.4-5.0); BICARBONATE 25.3 MEQ/L (21.0-32.0); BLOOD UREA NITROGEN 34 MG/DL (7-18); CALCIUM 8.3 MG/DL (8.5-10.1); GLUCOSE,RANDOM 108 MG/DL (74-106)
[2017-05-25 08:34] LABS: ALT (GPT) 8 U/L (10-53); AST (GOT) 20 U/L (15-37)
[2017-05-25 08:35] LABS: GLOMERULAR FILTRATION RATE 56 ML/MIN (>89)
[2017-05-25 08:36] LABS: TOTAL PROTEIN 6.3 GM/DL (6.4-8.2)
[2017-05-25 08:37] LABS: ALKALINE PHOSPHATASE 210 U/L (45-117)
[2017-05-25] MEDS: REMOVE OLD PATCH T-DERMAL SCH (08:54)
[2017-05-25] MEDS: LINEZOLID 600 MG PREMIX 300 ML IV SCH ×2 (09:43→23:56)
[2017-05-25 10:30] LABS: TOXIC GRANULATION 1+ (NORMAL)
--- NOTE | 2017-05-25 10:45 | HHI.PR ---
Subjective Remarks resting quietly bp and hr now stable eating a bit mentation waxes and wanes will consult neuro Objective Vital Signs Date Time Temp Pulse Resp B/P (MAP) Pulse Ox O2 Delivery O2 Flow Rate FiO2 05/25/17 08:28 93 Nasal Cannula 3.50 05/25/17 08:10 78 44 166/69 (101) 92 05/25/17 08:00 78 05/25/17 08:00 Room Air 2.00 21 05/25/17 07:00 98.1 84 37 174/73 (106) 93 05/25/17 06:00 78 42 164/84 (110) 90 05/25/17 06:00 78 05/25/17 05:00 82 37 160/72 (101) 90 05/25/17 04:00 76 05/25/17 04:00 98.7 76 33 153/69 (97) 91 05/25/17 03:15 74 36 168/68 (101) 91 05/25/17 02:00 84 41 154/70 (98) 92 05/25/17 02:00 84 05/25/17 01:00 76 36 155/78 (103) 92 05/25/17 00:00 78 05/25/17 00:00 98.7 78 34 149/68 (95) 94 05/24/17 23:00 80 35 162/65 (97) 95 05/24/17 22:00 80 35 184/109 (134) 96 05/24/17 22:00 80 05/24/17 21:00 76 31 170/71 (104) 97 05/24/17 20:00 98.3 72 34 156/71 (99) 97 05/24/17 20:00 72 05/24/17 19:00 70 26 147/77 (100) 97 05/24/17 19:00 Room Air 05/24/17 18:00 72 05/24/17 18:00 72 29 138/67 (90) 95 05/24/17 17:00 68 27 168/75 (106) 95 05/24/17 16:00 97.5 78 30 168/66 (100) 95 05/24/17 16:00 78 05/24/17 15:00 64 30 157/73 (101) 96 05/24/17 14:00 64 30 161/88 (112) 96 05/24/17 14:00 64 05/24/17 13:00 60 29 136/76 (96) 95 05/24/17 12:00 70 05/24/17 12:00 98.3 70 34 118/61 (80) 95 05/24/17 11:00 68 25 123/69 (87) 95 I/O 05/24/17 05/24/17 05/24/17 05/25/17 05/25/17 05/25/17 07:00 15:00 23:00 07:00 15:00 23:00 Intake Total 300 ml 720 ml 480 ml 630 ml Output Total 800 ml 900 ml 900 ml Balance -500 ml 720 ml -420 ml -270 ml Intake Oral 480 ml IV Total 300 ml 720 ml 630 ml Output Urine Total 800 ml 900 ml 900 ml # Bowel Movements 2 2 1 4 Result Diagram: 05/25/17 0800 05/25/17 0800 Imaging Last Impressions Chest X-Ray 05/23/17 0600 Signed Impressions: Service Date/Time: Tuesday, May 23, 2017 06:20 - CONCLUSION: New bilateral interstitial pulmonary opacity suggesting mild pulmonary edema. Otf Wright MD Abdomen Ultrasound 05/22/17 0000 Signed Impressions: Service Date/Time: Monday, May 22, 2017 07:54 - CONCLUSION: 1. No evidence of acute abdominal process. No masses are identified. 2. Dilatation of the common duct and pancreatic duct which may reflect reservoir affect. MRCP could be performed for further evaluation if clinically indicated. 3. Echogenic liver compatible with fatty infiltration or hepatocellular disease. Jh Ochoa MD Hip and Pelvis X-Ray 05/20/17 1612 Signed Impressions: Service Date/Time: Saturday, May 20, 2017 16:27 - CONCLUSION: Arthroplasty in anatomic alignment without fracture. Garland Webb MD FACR Procedures Objective Remarks GENERAL: Well-nourished, well-developed patient. SKIN: Warm and dry. HEAD: Normocephalic. EYES: No scleral icterus. No injection or drainage. NECK: Supple, trachea midline. No JVD or lymphadenopathy. CARDIOVASCULAR: Regular rate and rhythm without murmurs, gallops, or rubs. RESPIRATORY: Breath sounds equal bilaterally. No accessory muscle use.few rhonchi present bases dull GASTROINTESTINAL: Abdomen soft, non-tender, nondistended.positive bs all quad EXTREMITIES: No cyanosis, or edema. NEUROLOGICAL: Awake, intermittant confusion and combativeness present Medications and IVs Inpatient Medications Acetaminophen (Tylenol) 650 mg Q6H PRN PO PAIN 1-10 AND/OR FEVER >101F; Start 05/22/17 at 07:00 Albumin Human 100 ml @ 60 mls/hr ONCE ONCE IV Last administered on 05/22/17at 01:29; Start 05/22/17 at 01:15; Stop 05/22/17 at 02:54; Status DC Albuterol/ Ipratropium (Duoneb Neb) 1 ampule Q6HR NEB INH Last administered on 05/25/17at 08:26; Start 05/22/17 at 10:00 Aztreonam 2000 mg/ Sodium Chloride 100 ml @ 200 mls/hr ONCE STAT IV Last administered on 05/20/17at 17:37; Start 05/20/17 at 17:20; Stop 05/20/17 at 17:49; Status DC Bisacodyl (Dulcolax Supp) 10 mg DAILY PRN RECTAL SEVERE CONSITIPATION; Start at 07:00 Chlorhexidine Gluconate (Chlorhexidine 2% Cloth) 3 pack UNSCH PRN TOPICAL HYGIENIC CARE; Start 05/20/17 at 22:30; Stop 05/25/17 at 22:18 Dextrose/Sodium Chloride 1,000 ml @ 30 mls/hr Q24H IV Last administered on 05/23at 08:27; Start 05/23/17 at 07:00 Enoxaparin Sodium (Lovenox Inj) 40 mg Q24H SQ Last administered on 05/24/17at 19: 43; Start 05/20/17 at 21:00 Famotidine (Pepcid Inj) 10 mg Q12HR IV PUSH Last administered on 05/25/17at 07:32 ; Start 05/22/17 at 09:00 Haloperidol Lactate (Haldol Inj) 2 mg Q4HR PRN IV PUSH agitation Last administered on 05/25/17at 02:28; Start 05/22/17 at 19:45 Lactulose (Lactulose Liq) 30 ml DAILY PRN PO SEVERE CONSITIPATION; Start at 07:00 Levofloxacin (Levaquin) 250 mg DAILY@1800 PO Last administered on 05/24/17 17: 33; Start 05/21/17 at 18:00 Linezolid 300 ml @ 300 mls/hr Q12H IV Last administered on 05/25/17at 09:43; Start 05/22/17 at 11:00 Magnesium Hydroxide (Milk Of Magnesia Liq) 30 ml Q12H PRN PO Mild constipation ; Start 05/22/17 at 07:00 Metronidazole 100 ml @ 100 mls/hr ONCE STAT IV Last administered on 05/20/17at 18:11; Start 05/20/17 at 17:20; Stop 05/20/17 at 18:19; Status DC Midodrine (Proamatine) 10 mg TID@07,12,17 PO Last administered on 05/23/17 08: 21; Start 05/22/17 at 08:00 Miscellaneous Information 1 DAILY T-DERMAL ; Start 05/25/17 at 09:00 Naloxone HCl (Narcan Inj) 0.4 mg UNSCH PRN IV PUSH SEE LABEL COMMENTS; Start at 18:00 Nicotine (Habitrol 21 Mg Patch.24 Hr) 1 patch DAILY T-DERMAL Last administered on 05/25/17at 07:32; Start 05/25/17 at 09:00 Ondansetron HCl (Zofran Inj) 4 mg Q6H PRN IV PUSH NAUSEA OR VOMITING; Start 05/22/17 at 07:00 Phenylephrine HCl 160 mg/Dextrose 500 ml @ 7.5 mls/hr TITRATE PRN IV Blood pressure management; Start 05/22/17 at 01:15 Senna/Docusate Sodium (Shonna-Colace) 1 tab BID PO Last administered on 05/23/17at 08:21; Start 05/22/17 at 09:00 Sennosides (Senokot) 17.2 mg Q12H PRN PO Moderate constipation; Start 05/22/17 at 07:00 Sodium Chloride 500 ml @ 50 mls/hr Q10H IV Last administered on 05/21/17at 17:30 ; Start 05/21/17 at 17:30; Stop 05/22/17 at 03:29; Status DC Sodium Chloride (NS Flush) 2 ml BID IV FLUSH Last administered on 05/24/17at 19: 42; Start 05/20/17 at 21:00 Terbutaline Sulfate (Brethine Inj) 1 mg UNSCH PRN SQ For Extravasation; Start 05/22/17 at 01:15 Trazodone HCl (Desyrel) 100 mg HS PO ; Start 05/25/17 at 21:00 Vancomycin HCl 1000 mg/Sodium Chloride 250 ml @ 250 mls/hr ONCE STAT IV Last administered on 05/20/17at 19:25; Start 05/20/17 at 17:20; Stop 05/20/17 at 18:19; Status DC Ziprasidone (Geodon Inj) 10 mg Q12H PRN IM breakthrough agitation Last administered on 05/24/17at 19:42; Start 05/22/17 at 19:45; Stop 05/25/17 at 19:44 Assessment and Plan Problem List: (1) Encephalopathy acute ICD Codes: G93.40 - Encephalopathy, unspecified Status: Acute Plan: consult neuro (2) YANNA (acute kidney injury) ICD Codes: N17.9 - Acute kidney failure, unspecified Status: Acute Plan: renal consulted gfr improving Assessment and Plan YANNA AMS will need placement at dc Discharge Planning recomend [facility] Paxton Barrett DO May 25, 2017 10:45
[2017-05-25 11:30] LABS: BILIRUBIN, URINE NEG (NEG); BLOOD, URINE SMALL (NEG); GLUCOSE,URINE NEG (NEG); KETONE, URINE NEG (NEG); NITRITE,URINE NEG (NEG); URINE LEUKOCYTE ESTERASE NEG (NEG)
[2017-05-25 11:51] LABS: HYALINE CAST, URINE 0-2 /lpf (RARE); URIC ACID CRYSTALS, URINE MANY /hpf; URINE COLOR YELLOW (YELLW/STRAW); WBC, URINE 0-2 /hpf (0-5)
[2017-05-25 11:52] LABS: BACTERIA, URINE OCC /hpf
--- NOTE | 2017-05-25 11:52 | RADRPT ---
EXAM DATE/TIME: 05/25/2017 11:18 [facility] COMPARISON: CHEST PA & LAT, May 21, 2017, 15:41. INDICATIONS : Cough. MEDICAL HISTORY : Seizures SURGICAL HISTORY : Cholecystectomy. Pilonidal cyst removal ENCOUNTER: Initial ACUITY: 4 - 6 days PAIN SCORE: 0/10 LOCATION: Bilateral chest FINDINGS: Mild interstitial edema with minimal blunting right lateral flank sulci new from comparison study. There is other consolidation. Cardiac silhouette is appropriate. There is no pneumothorax. CONCLUSION: Trace pleural effusions bilaterally seen best on the lateral. Garland Webb MD FACR on May 25, 2017 at 11:49 Board Certified Radiologist. This report was verified electronically.
[2017-05-25] MEDS ORDERED: ALPRAZolam 0.25 MG TAB PO PRN (14:15)
--- NOTE | 2017-05-25 18:01 | HHI.GIFU ---
Subjective Remarks alert no confusion today VSS NAD could not undergo MRCP 2 to claustrophobia despite rx LFT almost normal No abdominal pain Objective Vitals I&O Vital Signs Date Time Temp Pulse Resp B/P (MAP) Pulse Ox O2 Delivery O2 Flow Rate FiO2 05/25/17 16:02 72 41 155/77 (103) 92 05/25/17 16:00 72 05/25/17 16:00 98.6 05/25/17 15:10 72 41 153/68 (96) 91 05/25/17 15:01 76 29 153/76 (101) 91 05/25/17 14:01 76 38 142/61 (88) 94 05/25/17 14:00 76 05/25/17 13:01 78 37 138/66 (90) 94 05/25/17 12:01 98.9 74 33 145/73 (97) 94 05/25/17 12:00 82 05/25/17 11:00 70 30 126/59 (81) 93 05/25/17 10:00 80 36 158/84 (108) 92 05/25/17 10:00 61 05/25/17 09:00 78 34 152/54 (86) 92 05/25/17 08:28 93 Nasal Cannula 3.50 05/25/17 08:10 78 44 166/69 (101) 92 05/25/17 08:00 78 05/25/17 08:00 Room Air 2.00 21 05/25/17 07:00 98.1 84 37 174/73 (106) 93 05/25/17 06:00 78 42 164/84 (110) 90 05/25/17 06:00 78 05/25/17 05:00 82 37 160/72 (101) 90 05/25/17 04:00 76 05/25/17 04:00 98.7 76 33 153/69 (97) 91 05/25/17 03:15 74 36 168/68 (101) 91 05/25/17 02:00 84 41 154/70 (98) 92 05/25/17 02:00 84 05/25/17 01:00 76 36 155/78 (103) 92 05/25/17 00:00 78 05/25/17 00:00 98.7 78 34 149/68 (95) 94 1/7/18 23:00 80 35 162/65 (97) 95 05/24/17 22:00 80 35 184/109 (134) 96 05/24/17 22:00 80 05/24/17 21:00 76 31 170/71 (104) 97 05/24/17 20:00 98.3 72 34 156/71 (99) 97 05/24/17 20:00 72 05/24/17 19:00 70 26 147/77 (100) 97 05/24/17 19:00 Room Air 05/24/17 18:00 72 05/24/17 18:00 72 29 138/67 (90) 95 I/O 05/24/17 05/24/17 05/24/17 05/25/17 05/25/17 05/25/17 07:00 15:00 23:00 07:00 15:00 23:00 Intake Total 300 ml 720 ml 480 ml 630 ml 300 ml Output Total 800 ml 900 ml 900 ml Balance -500 ml 720 ml -420 ml -270 ml 300 ml Intake Oral 480 ml IV Total 300 ml 720 ml 630 ml 300 ml Output Urine Total 800 ml 900 ml 900 ml # Bowel Movements 2 2 1 4 Laboratory Laboratory Tests Test 05/25/17 08:00 05/25/17 10:20 White Blood Count 18.1 Red Blood Count 3.79 Hemoglobin 11.1 Hematocrit 33.7 Mean Corpuscular Volume 88.9 Mean Corpuscular Hemoglobin 29.2 Mean Corpuscular Hemoglobin Concent 32.8 Red Cell Distribution Width 13.9 Platelet Count 240 Mean Platelet Volume 8.5 Neutrophils (%) (Auto) 83.3 Lymphocytes (%) (Auto) 11.4 Monocytes (%) (Auto) 5.0 Eosinophils (%) (Auto) 0.1 Basophils (%) (Auto) 0.2 Neutrophils # (Auto) 15.1 Lymphocytes # (Auto) 2.1 Monocytes # (Auto) 0.9 Eosinophils # (Auto) 0.0 Basophils # (Auto) 0.0 CBC Comment AUTO DIFF Differential Comment AUTO DIFF CONFIRMED Toxic Granulation 1+ Blood Urea Nitrogen 34 Creatinine 1.00 Random Glucose 108 Total Protein 6.3 Albumin 2.2 Calcium Level 8.3 Alkaline Phosphatase 210 Aspartate Amino Transf (AST/SGOT) 20 Alanine Aminotransferase (ALT/SGPT) 8 Total Bilirubin 1.0 Sodium Level 148 Potassium Level 3.0 Chloride Level 114 Carbon Dioxide Level 25.3 Anion Gap 9 Estimat Glomerular Filtration Rate 56 Ammonia 28 Urine Collection Type CATH Urine Color YELLOW Urine Turbidity CLEAR Urine pH 6.0 Urine Specific [place] 1.017 Urine Protein NEG Urine Glucose (UA) NEG Urine Ketones NEG Urine Occult Blood SMALL Urine Nitrite NEG Urine Bilirubin NEG Urine Leukocyte Esterase NEG Urine WBC 0-2 Urine Uric Acid Crystals MANY Urine Bacteria OCC Urine Hyaline Casts 0-2 Microscopic Urinalysis Comment CULTURE INDICATED Date/Time Source Procedure Growth Status 05/22/17 01:49 Blood Peripheral Aerobic Blood Culture - Preliminary NO GROWTH IN 3 DAYS Resulted 05/22/17 01:49 Blood Peripheral Anaerobic Blood Culture - Preliminary NO GROWTH IN 3 DAYS Resulted 05/22/17 05:20 Nasal Aspirate Influenza Types A,B Antigen (LEAH) - Final NEGATIVE FOR FLU A AND B ANTIGEN.... Complete 05/25/17 10:20 Urine Catheterized Urine Urine Culture Pending Received Physical Exam H CHEST: Chest is clear to auscultation and percussion. CARDIAC: Regular rate and rhythm with no murmur gallop or rubs. ABDOMEN: Soft, nondistended, nontender; no hepatosplenomegaly; bowel sounds are present in all four quadrants. EXTREMITIES: No clubbing, cyanosis, or edema. SKIN: Normal; no rash; no jaundice. Assessment and Plan Assessment: (1) Dilated cbd, acquired ICD Codes: K83.8 - Other specified diseases of biliary tract Plan obtain CT abd Attention pancreas....Dr Mclaughlin will f/u cont rx Pt may also need EUS after D/c. Joshua Holm MD May 25, 2017 18:01
--- NOTE | 2017-05-25 18:50 | HHI.IDPN ---
Note Infectious Disease Note Patient is much more alert. Oriented x 3. Conversing freely. Afebrile. Has loose stools. 61-year-old white female was brought to the emergency department on 05/20/2017 after she was found at home following a fall. It is noted in the emergency department record that the patient was on the ground for three days. White blood cell count was elevated at 30.6 with left shift. She also was found to have acute renal failure. PAST MEDICAL HISTORY 1. Arthritis, 2. Bilateral hip replacement, 3. Anxiety, depression. ALLERGIES CEFEPIME CEFTAROLINE CEPHALEXIN PENICILLIN G PROPOXYPHENE MEDICATIONS Current Medications Medications (Trade) Dose Ordered Sig/Magda Route PRN Reason Start Time Stop Time Status Last Admin Dose Admin Sodium Chloride (NS Flush) 2 ml UNSCH PRN IV FLUSH FLUSH AFTER USING IV ACCESS 05/20/17 18:00 Sodium Chloride (NS Flush) 2 ml BID IV FLUSH 05/20/17 21:00 05/24/17 19:42 Enoxaparin Sodium (Lovenox Inj) 40 mg Q24H SQ 05/20/17 21:00 05/24/17 19:43 Naloxone HCl (Narcan Inj) 0.4 mg UNSCH PRN IV PUSH SEE LABEL COMMENTS 05/20/17 18:00 Miscellaneous Information Patient in critical care unit? Ass... [id number] .XX 05/20/17 22:30 05/20/17 22:30 Chlorhexidine Gluconate (Chlorhexidine 2% Cloth) 3 pack UNSCH PRN TOPICAL HYGIENIC CARE 05/20/17 22:30 05/25/17 22:18 Levofloxacin (Levaquin) 250 mg DAILY@1800 PO 05/21/17 18:00 05/24/17 17:33 Phenylephrine HCl 160 mg/Dextrose 500 ml @ 7.5 mls/hr TITRATE PRN IV Blood pressure management 05/22/17 01:15 Terbutaline Sulfate (Brethine Inj) 1 mg UNSCH PRN SQ For Extravasation 05/22/17 01:15 Acetaminophen (Tylenol) 650 mg Q6H PRN PO PAIN 1-10 AND/OR FEVER >101F 05/22/17 07:00 Ondansetron HCl (Zofran Inj) 4 mg Q6H PRN IV PUSH NAUSEA OR VOMITING 05/22/17 07:00 Albuterol/ Ipratropium (Duoneb Neb) 1 ampule Q6HR NEB INH 05/22/17 10:00 05/25/17 16:00 Senna/Docusate Sodium (Shonna-Colace) 1 tab BID PO 05/22/17 09:00 05/23/17 08:21 Magnesium Hydroxide (Milk Of Magnesia Liq) 30 ml Q12H PRN PO Mild constipation 05/22/17 07:00 Sennosides (Senokot) 17.2 mg Q12H PRN PO Moderate constipation 05/22/17 07:00 Bisacodyl (Dulcolax Supp) 10 mg DAILY PRN RECTAL SEVERE CONSITIPATION 05/22/17 07:00 Lactulose (Lactulose Liq) 30 ml DAILY PRN PO SEVERE CONSITIPATION 05/22/17 07:00 Midodrine (Proamatine) 10 mg TID@07,12,17 PO 05/22/17 08:00 05/23/17 08:21 Linezolid 300 ml @ 300 mls/hr Q12H IV 05/22/17 11:00 05/25/17 09:43 Haloperidol Lactate (Haldol Inj) 2 mg Q4HR PRN IV PUSH agitation 05/22/17 19:45 05/25/17 02:28 Ziprasidone (Geodon Inj) 10 mg Q12H PRN IM breakthrough agitation 05/22/17 19:45 05/25/17 19:44 05/24/17 19:42 Dextrose/Sodium Chloride 1,000 ml @ 30 mls/hr Q24H IV 05/23/17 07:00 05/25/17 07:00 Trazodone HCl (Desyrel) 75 mg HS PRN PO INSOMNIA 05/24/17 22:15 05/24/17 22:18 Nicotine (Habitrol 21 Mg Patch.24 Hr) 1 patch DAILY T-DERMAL 05/25/17 09:00 05/25/17 07:32 Miscellaneous Information 1 DAILY T-DERMAL 05/25/17 09:00 Trazodone HCl (Desyrel) 100 mg HS PO 05/25/17 21:00 Famotidine (Pepcid Inj) 20 mg Q12HR IV PUSH 05/25/17 21:00 Alprazolam (Xanax) 0.25 mg UNSCH X1 PRN PO GIVE PRIOR TO MRI 05/25/17 14:15 05/26/17 14:14 05/25/17 16:00 OBJECTIVE: Vital Signs Date Time Temp Pulse Resp B/P (MAP) Pulse Ox O2 Delivery O2 Flow Rate FiO2 05/25/17 16:02 72 41 155/77 (103) 92 05/25/17 16:00 72 05/25/17 16:00 98.6 05/25/17 15:10 72 41 153/68 (96) 91 05/25/17 15:01 76 29 153/76 (101) 91 05/25/17 14:01 76 38 142/61 (88) 94 05/25/17 14:00 76 05/25/17 13:01 78 37 138/66 (90) 94 05/25/17 12:01 98.9 74 33 145/73 (97) 94 05/25/17 12:00 82 05/25/17 11:00 70 30 126/59 (81) 93 05/25/17 10:00 80 36 158/84 (108) 92 05/25/17 10:00 61 05/25/17 09:00 78 34 152/54 (86) 92 05/25/17 08:28 93 Nasal Cannula 3.50 05/25/17 08:10 78 44 166/69 (101) 92 05/25/17 08:00 78 05/25/17 08:00 Room Air 2.00 21 05/25/17 07:00 98.1 84 37 174/73 (106) 93 05/25/17 06:00 78 42 164/84 (110) 90 05/25/17 06:00 78 05/25/17 05:00 82 37 160/72 (101) 90 05/25/17 04:00 76 05/25/17 04:00 98.7 76 33 153/69 (97) 91 05/25/17 03:15 74 36 168/68 (101) 91 05/25/17 02:00 84 41 154/70 (98) 92 05/25/17 02:00 84 05/25/17 01:00 76 36 155/78 (103) 92 05/25/17 00:00 78 05/25/17 00:00 98.7 78 34 149/68 (95) 94 05/24/17 23:00 80 35 162/65 (97) 95 05/24/17 22:00 80 35 184/109 (134) 96 05/24/17 22:00 80 05/24/17 21:00 76 31 170/71 (104) 97 05/24/17 20:00 98.3 72 34 156/71 (99) 97 05/24/17 20:00 72 05/24/17 19:00 70 26 147/77 (100) 97 05/24/17 19:00 Room Air Laboratory Tests Test 05/25/17 08:00 White Blood Count 18.1 TH/MM3 Red Blood Count 3.79 MIL/MM3 Hemoglobin 11.1 GM/DL Hematocrit 33.7 % Mean Corpuscular Volume 88.9 FL Mean Corpuscular Hemoglobin 29.2 PG Mean Corpuscular Hemoglobin Concent 32.8 % Red Cell Distribution Width 13.9 % Platelet Count 240 TH/MM3 Mean Platelet Volume 8.5 FL Neutrophils (%) (Auto) 83.3 % Lymphocytes (%) (Auto) 11.4 % Monocytes (%) (Auto) 5.0 % Eosinophils (%) (Auto) 0.1 % Basophils (%) (Auto) 0.2 % Neutrophils # (Auto) 15.1 TH/MM3 Lymphocytes # (Auto) 2.1 TH/MM3 Monocytes # (Auto) 0.9 TH/MM3 Eosinophils # (Auto) 0.0 TH/MM3 Basophils # (Auto) 0.0 TH/MM3 CBC Comment AUTO DIFF Differential Comment AUTO DIFF CONFIRMED Toxic Granulation 1+ Laboratory Tests Test 05/24/17 05:31 05/25/17 08:00 Blood Urea Nitrogen 44 MG/DL 34 MG/DL Creatinine 1.30 MG/DL 1.00 MG/DL Random Glucose 118 MG/DL 108 MG/DL Total Protein 6.2 GM/DL 6.3 GM/DL Albumin 2.3 GM/DL 2.2 GM/DL Calcium Level 8.6 MG/DL 8.3 MG/DL Alkaline Phosphatase 252 U/L 210 U/L Aspartate Amino Transf (AST/SGOT) 25 U/L 20 U/L Alanine Aminotransferase (ALT/SGPT) 11 U/L 8 U/L Total Bilirubin 1.0 MG/DL 1.0 MG/DL Sodium Level 149 MEQ/L 148 MEQ/L Potassium Level 3.3 MEQ/L 3.0 MEQ/L Chloride Level 118 MEQ/L 114 MEQ/L Carbon Dioxide Level 22.9 MEQ/L 25.3 MEQ/L Anion Gap 8 MEQ/L 9 MEQ/L Estimat Glomerular Filtration Rate 42 ML/MIN 56 ML/MIN Ammonia 28 MCMOL/L Microbiology Date/Time Source Procedure Growth Status 05/25/17 10:20 Urine Catheterized Urine Urine Culture Pending Received IMAGING: Chest X-Ray 05/25/17 0000 Signed Impressions: Service Date/Time: Thursday, May 25, 2017 11:18 - CONCLUSION: Trace pleural effusions bilaterally seen best on the lateral. Garland Webb MD FACR Chest X-Ray 05/23/17 0600 Signed Impressions: Service Date/Time: Tuesday, May 23, 2017 06:20 - CONCLUSION: New bilateral interstitial pulmonary opacity suggesting mild pulmonary edema. Otf Wright MD Abdomen Ultrasound 05/22/17 0000 Signed Impressions: Service Date/Time: Monday, May 22, 2017 07:54 - CONCLUSION: 1. No evidence of acute abdominal process. No masses are identified. 2. Dilatation of the common duct and pancreatic duct which may reflect reservoir affect. MRCP could be performed for further evaluation if clinically indicated. 3. Echogenic liver compatible with fatty infiltration or hepatocellular disease. Jh Ochoa MD Hip and Pelvis X-Ray 05/20/17 1612 Signed Impressions: Service Date/Time: Saturday, May 20, 2017 16:27 - CONCLUSION: Arthroplasty in anatomic alignment without fracture. Garland Webb MD FACR PHYSICAL EXAMINATION GENERAL: No acute distress. She is awake and confused. HEENT: Head atraumatic. Extraocular movements grossly intact. No icterus. Oropharynx mucosa moist. NECK: Supple without adenopathy or swelling. LUNGS: decreased BS at bases. HEART: Regular rate and rhythm without audible murmurs, rubs or gallops. ABDOMEN: Bowel sounds present, soft, no tenderness appreciated. EXTREMITIES: No clubbing, cyanosis or edema. SKIN: No diffuse rash. NEUROLOGIC: No gross focal findings PSYCHIATRIC: Calm and cooperative. IMPRESSION Leukocytosis probably secondary to urinary tract infection. Altered mental status ? secondary to infection. Possible pneumonia RECOMMENDATIONS 1. Continue Zyvox. Follow platelet count. 2. Stop Levaquin. 3. Follow urine culture. 3. Monitor clinical status. 4. Send stool for c. dif. 5. Monitor WBC. Dr Tobin Hernandez covering beginning tomorrow. Antolin Conrad MD May 25, 2017 18:50
--- NOTE | 2017-05-25 19:02 | RADRPT ---
EXAM DATE/TIME: 05/25/2017 17:25 [facility] COMPARISON: No previous studies available for comparison. INDICATIONS : Pain. MEDICAL HISTORY : None. SURGICAL HISTORY : Cholecystectomy. Bilateral hip replacments in ENCOUNTER: Initial ACUITY: 1 day PAIN SCORE: 7/10 LOCATION: Bilateral lower back region. TECHNIQUE: Multiplanar, multisequence magnetic resonance imaging of the abdomen was performed. High-resolution 3D dataset was utilized to reconstruct maximum-intensity projection (MIP) images. FINDINGS: Only 2 sequences would be performed prior to the patient discontinuing the exam. INTRAHEPATIC BILE DUCTS: Within normal limits as visualized. No significant anatomical variant is present. EXTRAHEPATIC BILE DUCTS: The common bile duct measures 3mm. No stone or filling defect is identified. GALLBLADDER: Surgically absent. LIVER: Normal size and signal intensity. No concerning liver lesion is identified on this non-contrast exam. PANCREAS: The main pancreatic duct is normal in size. There is no significant anatomical variant. Signal inte nsity is within normal limits. No mass is visualized on this non-contrast exam. OTHER: The remaining visualized structures demonstrate no acute abnormality on this non-contrast exam. CONCLUSION: No evidence of biliary tree dilatation. Gallbladder surgically absent. Limited exam due to patient di scontinuing the study after 2 sequences. Jose Castle MD on May 25, 2017 at 18:58 Board Certified Radiologist. This report was verified electronically.
[2017-05-25] MEDS: traZODone HCL 100 MG TAB PO SCH (21:13)
[2017-05-25] MEDS: ENOXAPARIN SODIUM 40 MG/0.4 ML SYRINGE SQ SCH (21:13)
--- NOTE | 2017-05-25 22:36 | MB ---
cc: RAVI PAINTING MD DATE OF CONSULTATION: 05/25/2017 REASON FOR CONSULTATION: Altered mental status. HISTORY OF PRESENT ILLNESS Ms. Medina is a 61-year-old female who was admitted at [facility] after she fell and was found in her bathroom where it was reported that she laid on the floor for three days. She was obtunded. X-rays were negative for fracture. In the ED, she had elevated white blood cells, admitted to the hospital and continued to have altered mental status. During the hospital stay the patient became hypotensive, increased oxygen requirement. The patient became agitated during the hospital stay. The patient was noted to have fluctuating level of consciousness, thus a neurology consult was placed. REVIEW OF SYSTEMS A 12-point review of systems is negative except for what is stated in the HPI. PAST MEDICAL HISTORY: 1. Arthritis. 2. Anxiety depression. PAST SURGICAL HISTORY: 1. Bilateral hip replacement. ALLERGIES: CEFEPIME CEFTAROLINE FOSAMIL CEPHALEXIN PENICILLIN G PROPOXYPHENE MEDICATIONS 1. Tizanidine 2. Naprosyn. 3. Cymbalta. 4. Tylenol/codeine #4. FAMILY HISTORY Noncontributory SOCIAL HISTORY Active smoker. Denies ethanol or illicit drug abuse. PHYSICAL EXAMINATION: General: Awake, alert, oriented to time, person and place. Good historian, not in acute distress. HEENT: Atraumatic, normocephalic. Intact hearing. Intact vision. Respiratory: Clear to auscultation. No wheezes. Cardiovascular: Regular rate and rhythm. Neck: Supple. Trachea midline. Gastrointestinal: Soft abdomen, nontender. Neurological: Awake, alert, oriented to time, person and place, no dysarthria. No aphasia. Extremities: Upper extremities, 5/5, no abnormal movement, normal tone, intact reflexes, normal [id number]. Unable to accurately assess lower extremities because of pain with movement. Psychiatric: Cooperative. No hallucinations. LABORATORY DATA White blood cells elevated at 148, potassium low at 3, chloride 114, BUN 34, creatinine 1, lactic acid is 0.8, calcium 8.3, alkaline phosphatase 210, total protein 6.3. INR 1.2, white blood cells down to 18.1 from 30.6, hemoglobin 11.1 , platelet count 240. DIAGNOSTIC IMPRESSION 1. Encephalopathy, resolving - Likely metabolic in etiology and secondary to electrolyte disturbance. Examination is nonfocal. 2. YANNA. 3. Leukocytosis normalizing. 4. Falls. PLAN: 1. Neuro checks q4 hourly. 2. No need for further neurological workup. Examination is nonfocal, encephalopathy has resolved given today's neurologic evaluation. 3. Fall precautions. 4. PT/OT recommendations are appreciated. 5. GI prophylaxis. 6. SCD prophylaxis. Thank you for the opportunity to participate in the care of your patient. MD ZULLY Ferreira/PAULINA /8:36 PM /9:35 PM MTDD
[2017-05-26] VITALS (30 sets, daily range): BP systolic 92–146; BP diastolic 47–86; PULSE 56–82; RESP 20–46; TEMP 98.1–99.1; O2SAT 92–98
[2017-05-26] MEDS: ONDANSETRON HCL 4 MG/2 ML VIAL IV PUSH PRN (04:22)
[2017-05-26] MEDS: RESP: ALBUTEROL 2.5 MG/IPRATROPIUM 0.5 MG NEB (SCH) INH ×2 (04:39→09:17)
[2017-05-26] MEDS: MIDODRINE 5 MG TAB PO SCH ×3 (07:00→17:00)
[2017-05-26] MEDS ORDERED: IOHEXOL 350 MG/ML 10 ML VIAL (for RAD DIAG) IVCONTRAST ONE (08:13)
--- NOTE | 2017-05-26 08:24 | RADRPT ---
EXAM DATE/TIME: 05/26/2017 07:54 [facility] COMPARISON: No previous studies available for comparison. INDICATIONS : Abdominal pain. IV CONTRAST: 100 cc Omnipaque 350 (iohexol) IV ORAL CONTRAST: No oral contrast ingested. RADIATION DOSE: 18.11 CTDIvol (mGy) MEDICAL HISTORY : None SURGICAL HISTORY : Cholecystectomy. ENCOUNTER: Initial ACUITY: 1 day PAIN SCALE: 3/10 LOCATION: upper quadrant TECHNIQUE: Volumetric scanning of the abdomen was performed. Using automated exposure control and adjustment of the mA and/or kV according to patient size, radiation dose was kept as low as reasonably achievable to obtain optimal diagnostic quality images. DICOM format image data is available electronically for review and comparison. FINDINGS: LOWER LUNGS: Moderately large bilateral pleural effusions and adjacent compressive atelectasis in the lung bases. LIVER: Mild diffuse decrease in hepatic attenuation, likely steatosis without evidence of focal mass or bili trevor ductal dilatation. Gallbladder surgically absent. SPLEEN: Small splenule in the inferior splenic hilum. No suspicious mass. PANCREAS: Within normal limits. KIDNEYS: Mild nonspecific perinephric fluid and fatty tissue stranding. No evidence of stone or hydronephrosis . Normal cortical contrast enhancement bilaterally ADRENAL GLANDS: Within normal limits. AORTA/RETROPERITONEAL: 1 cm celiac region lymph node, nonspecific. No evidence of para-aortic adenopathy. Atherosclerotic ch anges in the abdominal aorta and branch vessels. BOWEL/MESENTERY: The stomach and visualized small and large bowel demonstrate no abnormality. ABDOMINAL WALL: Within normal limits. MUSCULOSKELETAL: Within normal limits for patient age. POST CONTRAST: No abnormal areas of enhancement are seen. CONCLUSION: Fluid and atelectasis in the lung bases. Fatty liver. Nonspecific perinephric fluid and fatty tissue stranding. Minimally prominent celiac region lymph node. Keagan Ramos MD on May 26, 2017 at 8:14 Board Certified Radiologist. This report was verified electronically.
[2017-05-26] MEDS: REMOVE OLD PATCH T-DERMAL SCH (09:00)
[2017-05-26] MEDS: DOCUSATE SODIUM 50 MG/SENNA 8.6 MG TAB PO SCH ×2 (09:00→20:30)
[2017-05-26] MEDS: FAMOTIDINE 20 MG/2 ML VIAL IV PUSH SCH ×2 (09:26→20:30)
[2017-05-26] MEDS: SODIUM CHLORIDE 0.9% FLUSH 10 ML FLUSH IV FLUSH SCH ×2 (09:27→20:30)
[2017-05-26] MEDS: NICOTINE 21 MG/24 HR PATCH T-DERMAL SCH (09:27)
--- NOTE | 2017-05-26 11:04 | HHI.PR ---
Subjective Remarks much more alert today will have PT get carmina up and begin therapy neuro consult appreciated Objective Vital Signs Date Time Temp Pulse Resp B/P (MAP) Pulse Ox O2 Delivery O2 Flow Rate FiO2 05/26/17 09:18 97 Nasal Cannula 2.00 05/26/17 09:06 99.0 68 27 117/86 (96) 96 05/26/17 08:00 Nasal Cannula 95 05/26/17 07:01 68 25 115/62 (79) 96 05/26/17 06:36 74 05/26/17 06:01 74 28 103/55 (71) 95 05/26/17 05:01 80 33 118/60 (79) 93 05/26/17 04:40 93 Nasal Cannula 2.00 05/26/17 04:01 98.8 70 30 137/66 (89) 92 05/26/17 04:00 76 05/26/17 03:01 82 40 143/73 (96) 96 05/26/17 02:01 70 29 146/67 (93) 92 05/26/17 02:01 98.1 70 29 146/67 (93) 92 05/26/17 02:00 74 05/26/17 01:01 68 29 127/72 (90) 95 05/26/17 00:01 68 43 145/64 (91) 96 05/26/17 00:00 67 05/25/17 23:01 72 30 118/59 (78) 95 05/25/17 22:01 66 32 142/66 (91) 94 05/25/17 22:00 72 05/25/17 21:47 94 21 05/25/17 21:01 68 34 144/72 (96) 96 05/25/17 20:00 98.4 75 18 142/63 (89) 96 05/25/17 20:00 73 05/25/17 19:04 72 05/25/17 19:00 Room Air 96 05/25/17 19:00 70 31 96 05/25/17 17:53 80 31 155/78 (103) 05/25/17 16:02 72 41 155/77 (103) 92 05/25/17 16:00 72 05/25/17 16:00 98.6 05/25/17 15:10 72 41 153/68 (96) 91 05/25/17 15:01 76 29 153/76 (101) 91 05/25/17 14:01 76 38 142/61 (88) 94 05/25/17 14:00 76 05/25/17 13:01 78 37 138/66 (90) 94 05/25/17 12:01 98.9 74 33 145/73 (97) 94 05/25/17 12:00 82 I/O 05/25/17 05/25/17 05/25/17 05/26/17 05/26/17 05/26/17 06:59 14:59 22:59 06:59 14:59 22:59 Intake Total 630 ml 300 ml 300 ml Output Total 900 ml 650 ml 850 ml Balance -270 ml 300 ml -650 ml -550 ml IV Total 630 ml 300 ml 300 ml Output Urine Total 900 ml 650 ml 850 ml # Bowel Movements 4 3 Result Diagram: 05/25/17 0800 05/25/17 0800 Procedures Objective Remarks GENERAL: Well-nourished, well-developed patient. SKIN: Warm and dry. HEAD: Normocephalic. EYES: No scleral icterus. No injection or drainage. NECK: Supple, trachea midline. No JVD or lymphadenopathy. CARDIOVASCULAR: Regular rate and rhythm without murmurs, gallops, or rubs. RESPIRATORY: Breath sounds equal bilaterally. No accessory muscle use.few rhonchi present bases dull GASTROINTESTINAL: Abdomen soft, non-tender, nondistended.positive bs all quad EXTREMITIES: No cyanosis, or edema. NEUROLOGICAL: Awake, more alert today Assessment and Plan Problem List: (1) Encephalopathy acute ICD Codes: G93.40 - Encephalopathy, unspecified Status: Acute Plan: consult neuro consult reviewed no further neuro mao complete no focal signs will advance physical therapyt (2) YANNA (acute kidney injury) ICD Codes: N17.9 - Acute kidney failure, unspecified Status: Acute Plan: renal consulted gfr improving Assessment and Plan YANNA AMS will need placement at [place] Discussed Condition With patient will need rehab therapy Discharge Planning [facility]Paxton Watson DO May 26, 2017 11:04
[2017-05-26] MEDS: LINEZOLID 600 MG PREMIX 300 ML IV SCH ×2 (11:54→23:08)
[2017-05-26] MEDS: DEXT 5%-NACL 0.45% 1000 ML INJ 1,000 ML IV SCH (12:33)
[2017-05-26] MEDS ORDERED: ACETAMINOPHEN 325 MG TAB PO PRN (20:15)
[2017-05-26] MEDS: ENOXAPARIN SODIUM 40 MG/0.4 ML SYRINGE SQ SCH (20:29)
[2017-05-26] MEDS: ACETAMINOPHEN 325 MG TAB PO PRN (20:29)
[2017-05-26] MEDS: LACTOBACILLUS ACIDOPHILUS 1 GM PACKET PO SCH (20:30)
[2017-05-26] MEDS: traZODone HCL 100 MG TAB PO SCH (20:30)
[2017-05-26] MEDS: PSYLLIUM HUSK SF 3.4 GM in 5.8 GM PKT PO SCH (21:12)
[2017-05-27] VITALS (29 sets, daily range): BP systolic 104–156; BP diastolic 40–82; PULSE 56–78; RESP 24–43; TEMP 97.4–98.9; O2SAT 93–98
[2017-05-27] MEDS: ONDANSETRON HCL 4 MG/2 ML VIAL IV PUSH PRN (00:08)
[2017-05-27] MEDS: MIDODRINE 5 MG TAB PO SCH ×3 (06:00→17:00)
[2017-05-27] MEDS: NICOTINE 21 MG/24 HR PATCH T-DERMAL SCH (08:31)
[2017-05-27] MEDS: FAMOTIDINE 20 MG/2 ML VIAL IV PUSH SCH ×2 (08:31→21:41)
[2017-05-27] MEDS: REMOVE OLD PATCH T-DERMAL SCH (08:31)
[2017-05-27] MEDS: DOCUSATE SODIUM 50 MG/SENNA 8.6 MG TAB PO SCH ×2 (08:32→21:00)
[2017-05-27] MEDS: SODIUM CHLORIDE 0.9% FLUSH 10 ML FLUSH IV FLUSH SCH ×2 (08:32→20:32)
[2017-05-27] MEDS: LACTOBACILLUS ACIDOPHILUS 1 GM PACKET PO SCH ×2 (08:32→21:41)
[2017-05-27] MEDS: ACETAMINOPHEN 325 MG TAB PO PRN (08:54)
--- NOTE | 2017-05-27 10:20 | HHI.PR ---
Subjective Remarks Seen at bedside with RN, complains of Left hip pain Objective Vital Signs Date Time Temp Pulse Resp B/P (MAP) Pulse Ox O2 Delivery O2 Flow Rate FiO2 05/27/17 09:00 62 30 140/82 (101) 96 05/27/17 08:00 56 05/27/17 08:00 97.4 58 24 111/47 (68) 94 05/27/17 07:30 96 Nasal Cannula 2.00 05/27/17 07:00 97.5 58 26 104/50 (68) 95 05/27/17 07:00 94 Nasal Cannula 2.00 05/27/17 06:05 60 28 114/52 (72) 94 05/27/17 06:05 60 05/27/17 05:05 64 05/27/17 05:05 64 29 129/66 (87) 97 05/27/17 04:06 64 05/27/17 04:06 98.9 64 26 108/40 (62) 96 05/27/17 03:06 62 29 123/58 (79) 97 05/27/17 02:07 66 28 126/59 (81) 97 05/27/17 02:00 62 05/27/17 01:07 78 35 135/62 (86) 98 05/27/17 00:08 98.3 68 29 123/61 (81) 97 05/27/17 00:00 64 05/26/17 22:00 64 05/26/17 22:00 64 29 121/70 (87) 96 05/26/17 21:10 97 Nasal Cannula 2.00 05/26/17 21:00 66 34 112/53 (72) 98 05/26/17 20:00 98.2 70 26 115/60 (78) 98 05/26/17 20:00 71 05/26/17 19:00 97 Nasal Cannula 2.00 05/26/17 19:00 68 30 128/66 (86) 97 05/26/17 18:00 60 30 134/69 (90) 98 05/26/17 18:00 60 05/26/17 17:00 70 26 133/66 (88) 98 05/26/17 16:00 74 05/26/17 16:00 99.1 74 31 110/60 (77) 97 05/26/17 15:00 56 27 118/58 (78) 98 05/26/17 14:00 70 20 129/71 (90) 97 05/26/17 14:00 70 05/26/17 13:00 80 46 104/55 (71) 97 05/26/17 12:00 98.5 68 29 108/56 (73) 94 05/26/17 12:00 68 05/26/17 12:00 98.5 68 29 108/56 (73) 94 05/26/17 11:00 78 35 111/59 (76) 97 I/O 05/26/17 05/26/17 05/26/17 05/27/17 05/27/17 05/27/17 07:00 15:00 23:00 07:00 15:00 23:00 Intake Total 300 ml 1300 ml 420 ml 1222 ml Output Total 850 ml 400 ml 1500 ml Balance -550 ml 1300 ml 20 ml -278 ml Intake Oral 240 ml 600 ml IV Total 300 ml 1300 ml 180 ml 622 ml Output Urine Total 850 ml 400 ml 1500 ml Bladder Scan Volume Amount 336 ml 336 ml # Voids 3 # Bowel Movements 3 1 2 Result Diagram: 05/25/17 0800 05/25/17 08 Procedures Objective Remarks GENERAL:Well nourished in no apparent distress,oriented to self and part of her situation, remains pleasant SKIN: Warm and dry. HEAD: Atraumatic. Normocephalic. EYES: Pupils equal and round. No scleral icterus. No injection or drainage. ENT: No nasal bleeding or discharge. Mucous membranes pink and moist. NECK: Trachea midline. No JVD. CARDIOVASCULAR: Normal rate, regular rhythm. RESPIRATORY: Breath sounds diminished, no wheezes or rhonchi GASTROINTESTINAL: Abdomen soft, non-tender, nondistended. No guarding. MUSCULOSKELETAL: Extremities without clubbing, cyanosis, or edema. No obvious deformities. NEUROLOGICAL: GCS 14 .Awake and alert to person, follows commands Assessment and Plan Problem List: (1) Leukocytosis ICD Codes: D72.829 - Elevated white blood cell count, unspecified Status: Acute (2) YANNA (acute kidney injury) ICD Codes: N17.9 - Acute kidney failure, unspecified Status: Acute (3) Fall ICD Codes: W19.XXXA - Unspecified fall, initial encounter Status: Acute Assessment and Plan S/P fall likely related to Opiate use. No injury monitor, Left hip replacement in November, complain of pain will add lidocaine patch Encephalopathy- patient with some confusion today, nurse reports clear mentation yesterday, Neuro following resp insufficiency Keep sats >92 Leukocytosis- ID following, Zyvox, labs today YANNA- renal consulted, GFR improved GI/DVT prophylaxis, Lovenox, Pepcid continue with PT, consult CM for rehab placement at [place] Problem Qualifiers (1) Fall: Qualified Codes: W19.XXXA - Unspecified fall, initial encounter Tanya Toro May 27, 2017 10:20
[2017-05-27] MEDS: LINEZOLID 600 MG PREMIX 300 ML IV SCH ×2 (10:35→22:04)
--- NOTE | 2017-05-27 10:48 | MB ---
cc: SHANEL HOANG DATE OF CONSULTATION 05/26/[address] Barrett REASON FOR CONSULTATION Evaluation pleural effusion. HISTORY OF PRESENT ILLNESS Ms. Medina is a 61-year-old female with history of nicotine use, COPD, history of chronic pain. The patient was found on the floor. She says she fell on the floor but does not know how she fell. She was on the floor for three days then she was brought to the emergency room. She was found to have leukocytosis with acute renal failure. She was given Narcan and she did improve with that. The patient is in the intensive care unit. She had a chest x-ray done which showed trace pleural effusion. Her cholangiographic MRI shows no evidence of biliary tree dilation. Her CBC showed WBC 18.1, hemoglobin 11.1, hematocrit 33.7, MCA 88, platelet count 240, sodium 148, potassium 3.0, creatinine 114, CO2 25, BUN 34, creatinine 1.0, alk phos 210, AST 20, ALT 8. PAST MEDICAL HISTORY 1. History of chronic pain, 2. Arthritis, 3. Bilateral hip replacement 4. Anxiety and depression. MEDICATIONS Currently taking 1. Lactinex 1 gram twice a day. 2. Trazodone 100 mg at night. 3. Famotidine 20 mg a day. 4. Nicotine patch. 5. Trazodone 75 mg. 6. Haldol 2.2 mg p.r.n. 7. Zyvox 300 mg q. 12-hour 8. Midodrine 10 mg a day. 9. Lovenox 40 mg a day. ALLERGIES CEFEPIME CEFTAROLINE CEPHALEXIN PENICILLIN PROPOXYPHENE. SOCIAL HISTORY She has a long history of one and a half pack a day. Denies alcohol abuse. 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 FAMILY HISTORY She is a , lives alone. REVIEW OF SYSTEMS The patient states that she has chronic pain because of arthritis. No seizure, stroke or epilepsy. No DVT or pulmonary embolism. PHYSICAL EXAMINATION GENERAL: An elderly female not in acute distress complains of pain. VITAL SIGNS: Blood pressure 134/69, heart rate 60, respirations 16, temperature 99.1 HEENT: Pupils are equal and reactive. Oral mucosal and nasal mucosa normal. NECK: JVP not raISED. Chest: Clear bilaterally. No rhonchi. CARDIOVASCULAR: S1, S2 normal ABDOMEN: Benign. EXTREMITIES: No edema. IMPRESSION 1. Small pleural effusion. 2. Chronic pain 3. Arthritis 4. Leukocytosis 5. Possible pneumonia. PLAN We will continue antibiotic per ID recommendation. I will give her Tylenol 650 mg q.8 h as needed for pain. Her pleural effusion is small. We will monitor it. If the effusion increases then consider thoracentesis. Advised to quit smoking. Continue aerosol treatment. Further treatment will depend on the course in the hospital. Thank you, Dr. Barrett, for this consultation. MD AHMET Viera/SA /7:58 PM /10:19 AM MTDD
[2017-05-27] MEDS: LIDOCAINE HCL 5% PATCH T-DERMAL SCH (10:56)
[2017-05-27] MEDS: PSYLLIUM HUSK SF 3.4 GM in 5.8 GM PKT PO SCH ×2 (10:59→21:00)
[2017-05-27 11:32] LABS: AUTOMATED NEUTROPHIL # 15.9 TH/MM3 (1.8-7.7); BASOPHIL % 0.1 % (0.0-2.0); EOSINOPHIL # 0.3 TH/MM3 (0-0.4); EOSINOPHIL % 1.7 % (0.0-4.0); HEMATOCRIT 33.4 % (35.0-46.0); HEMOGLOBIN 11.1 GM/DL (11.6-15.3); LYMPH % 12.2 % (9.0-44.0); LYMPHOCYTE # 2.4 TH/MM3 (1.0-4.8); MEAN CELL VOLUME 90.6 FL (80.0-100.0); MEAN CORPUSCULAR HGB CONC 33.2 % (32.0-36.0); MEAN PLATELET VOLUME 8.6 FL (7.0-11.0); MONO % 3.7 % (0.0-8.0); MONOCYTE # 0.7 TH/MM3 (0-0.9); NEUT % 82.3 % (16.0-70.0); PLATELET COUNT 267 TH/MM3 (150-450); RED BLOOD COUNT 3.68 MIL/MM3 (4.00-5.30); RED CELL DISTRIBUTION WIDTH 13.5 % (11.6-17.2); WHITE BLOOD COUNT 19.3 TH/MM3 (4.0-11.0)
[2017-05-27 11:39] LABS: BICARBONATE 30.2 MEQ/L (21.0-32.0); CALCIUM 7.9 MG/DL (8.5-10.1); CREATININE 0.81 MG/DL (0.50-1.00)
--- NOTE | 2017-05-27 11:51 | RADRPT ---
EXAM DATE/TIME: 05/27/2017 11:11 [facility] COMPARISON: No previous studies available for comparison. INDICATIONS : Altered mental status. RADIATION DOSE: 60.43 CTDIvol (mGy) MEDICAL HISTORY : Chronic obstructive pulmonary disease. Renal failure, acute. Seizures. SURGICAL HISTORY : Cholecystectomy. ENCOUNTER: Initial ACUITY: 1 day PAIN SCALE: 0/10 LOCATION: cranial TECHNIQUE: Multiple contiguous axial images were obtained of the head. Using automated exposure control and adj ustment of the mA and/or kV according to patient size, radiation dose was kept as low as reasonably a chievable to obtain optimal diagnostic quality images. DICOM format image data is available electro nically for review and comparison. FINDINGS: CEREBRUM: The ventricles are normal for age. No evidence of midline shift, mass lesion, hemorrhage or acute in farction. No extra-axial fluid collections are seen. POSTERIOR FOSSA: The cerebellum and brainstem are intact. The 4th ventricle is midline. The cerebellopontine angle i s unremarkable. EXTRACRANIAL: The visualized portion of the orbits is intact. SKULL: The calvaria is intact. No evidence of skull fracture. CONCLUSION: No acute intracranial disease. Drake Ramesh MD on May 27, 2017 at 11:48 Board Certified Radiologist. This report was verified electronically.
[2017-05-27] MEDS ORDERED: ICU - POTASSIUM PHOSPHATE MONOBASIC 500 MG TAB PO PRN (12:30)
[2017-05-27] MEDS ORDERED: ICU - MAGNESIUM SULFATE 2 GM/NS 100 ML IV PRN ×2 (12:30)
[2017-05-27] MEDS ORDERED: ICU - MAGNESIUM OXIDE 400 MG TAB PO PRN (12:30)
[2017-05-27] MEDS ORDERED: ICU - POTASSIUM PHOSPHATE 30 MMOL/NS 250 ML IV PRN ×2 (12:30)
[2017-05-27] MEDS ORDERED: ICU - CALL ORDERING PHYSICIAN PRN (12:30)
[2017-05-27] MEDS ORDERED: POTASSIUM CHLORIDE 25 MEQ EFFERVESCENT TAB PO PRN (12:30)
[2017-05-27] MEDS ORDERED: ICU - MAGNESIUM SULFATE 4 GM/NS 100 ML IV PRN ×2 (12:30)
[2017-05-27] MEDS ORDERED: ICU - D/C ICU ELECTROLYTE ORDERS PRN (12:30)
[2017-05-27] MEDS ORDERED: ICU - SODIUM PHOSPHATE 30 MMOL/NS 250 ML IV PRN ×2 (12:30)
[2017-05-27] MEDS ORDERED: ICU - POTASSIUM CHLORIDE/AQUEOUS SOLN 40 MEQ/100 ML IVPB IV PRN (12:30)
[2017-05-27] MEDS: ICU - POTASSIUM CHLORIDE/AQUEOUS SOLN 20 MEQ/100 ML IVPB IV PRN ×3 (13:48→21:30)
--- NOTE | 2017-05-27 17:05 | HHI.PR ---
Subjective Remarks 61 YOWF with COPD,Nicotine use,AMS Breathing betetr Weaned to NC No fever Objective Vital Signs Vital Signs Date Time Temp Pulse Resp B/P (MAP) Pulse Ox O2 Delivery O2 Flow Rate FiO2 05/27/17 15:00 72 30 147/68 (94) 95 05/27/17 14:00 64 05/27/17 14:00 68 30 128/50 (76) 95 05/27/17 13:00 66 38 93 05/27/17 12:00 72 28 146/66 (92) 94 05/27/17 12:00 72 05/27/17 11:44 70 33 147/68 (94) 94 05/27/17 11:00 64 33 119/60 (79) 95 05/27/17 10:00 72 43 124/61 (82) 93 05/27/17 09:00 62 30 140/82 (101) 96 05/27/17 08:00 56 05/27/17 08:00 97.4 58 24 111/47 (68) 94 05/27/17 07:30 96 Nasal Cannula 2.00 05/27/17 07:00 97.5 58 26 104/50 (68) 95 05/27/17 07:00 94 Nasal Cannula 2.00 05/27/17 06:05 60 28 114/52 (72) 94 05/27/17 06:05 60 05/27/17 05:05 64 05/27/17 05:05 64 29 129/66 (87) 97 05/27/17 04:06 64 05/27/17 04:06 98.9 64 26 108/40 (62) 96 05/27/17 03:06 62 29 123/58 (79) 97 05/27/17 02:07 66 28 126/59 (81) 97 05/27/17 02:00 62 05/27/17 01:07 78 35 135/62 (86) 98 05/27/17 00:08 98.3 68 29 123/61 (81) 97 05/27/17 00:00 64 05/26/17 22:00 64 05/26/17 22:00 64 29 121/70 (87) 96 05/26/17 21:10 97 Nasal Cannula 2.00 05/26/17 21:00 66 34 112/53 (72) 98 05/26/17 20:00 98.2 70 26 115/60 (78) 98 05/26/17 20:00 71 05/26/17 19:00 97 Nasal Cannula 2.00 05/26/17 19:00 68 30 128/66 (86) 97 05/26/17 18:00 60 30 134/69 (90) 98 05/26/17 18:00 60 I/O 05/26/17 05/26/17 05/26/17 05/27/17 05/27/17 05/27/17 07:00 15:00 23:00 07:00 15:00 23:00 Intake Total 300 ml 1300 ml 420 ml 1222 ml Output Total 850 ml 400 ml 1500 ml Balance -550 ml 1300 ml 20 ml -278 ml Intake Oral 240 ml 600 ml IV Total 300 ml 1300 ml 180 ml 622 ml Output Urine Total 850 ml 400 ml 1500 ml Bladder Scan Volume Amount 336 ml 336 ml # Voids 3 # Bowel Movements 3 1 2 Result Diagram: 05/27/17 1105 05/27/17 1105 Objective Remarks GENERAL: MBMN WF,NAD SKIN: Warm and dry. HEAD: Normocephalic. EYES: No scleral icterus. No injection or drainage. NECK: Supple, trachea midline. No JVD or lymphadenopathy. CARDIOVASCULAR: Regular rate and rhythm without murmurs, gallops, or rubs. RESPIRATORY: Breath sounds equal bilaterally. No accessory muscle use. GASTROINTESTINAL: Abdomen soft, non-tender, nondistended. MUSCULOSKELETAL: No cyanosis, or edema. BACK: Nontender without obvious deformity. No CVA tenderness. A/P Assessment and Plan COPD Nicotine use Leucocytosis, possible Pn Pleural eff, small PLAN: Cont Abx monitor CBC Aerosol nebs PFT Smoking cessation Drew Rosario MD May 27, 2017 17:05
--- NOTE | 2017-05-27 18:01 | HHI.GIFU ---
GI Follow-up Note Consult Follow-up Subjective: Patient laying in bed comfortably. denies abdominal pain or GI bleeding Objective: PHYSICAL EXAMINATION: Vitals signs stable No fever NECK: Neck is supple, no JVD, no lymphadenopathy. CHEST: Chest is clear to auscultation and percussion. CARDIAC: Regular rate and rhythm with no murmur gallop or rubs. ABDOMEN: Soft, nondistended, nontender; no hepatosplenomegaly; bowel sounds are present in all four quadrants. EXTREMITIES: No edema. SKIN: no jaundice. SUPPORT SERVICES TECH: alert and oriented times three. Available Data (labs, X- Rays, Procedues) : transaminases normal .alkaline phosphatase slightly elevated ASSESSMENT/PLAN: #1. Abnormal imaging studyshowed a dilated bile duct. However recent CT scan did not show any abnormality of the biliary tree or the pancreas #2. Mildly elevated alkaline phosphatase with normal transaminases PLAN: Observation from the GI standpoint as an inpatient. We'll consider endoscopic ultrasound as outpatient It was a pleasure seeing Rosibel Medina. Thank you for this consult. Entered by: Richard Diallo MD May 27, 2017 18:01
[2017-05-27] MEDS: DEXT 5%-NACL 0.45% 1000 ML INJ 1,000 ML IV SCH (20:32)
[2017-05-27] MEDS: REMOVE OLD LIDOCAINE PATCH T-DERMAL SCH (21:00)
[2017-05-27] MEDS: ENOXAPARIN SODIUM 40 MG/0.4 ML SYRINGE SQ SCH (21:40)
[2017-05-27] MEDS: traZODone HCL 100 MG TAB PO SCH (21:41)
[2017-05-28] VITALS (24 sets, daily range): BP systolic 112–198; BP diastolic 56–87; PULSE 62–82; RESP 26–48; TEMP 97.8–99.3; O2SAT 91–96
[2017-05-28] MEDS: ICU - POTASSIUM CHLORIDE/AQUEOUS SOLN 20 MEQ/100 ML IVPB IV PRN (00:37)
[2017-05-28] MEDS: MIDODRINE 5 MG TAB PO SCH ×3 (07:00→16:56)
[2017-05-28] MEDS: DOCUSATE SODIUM 50 MG/SENNA 8.6 MG TAB PO SCH ×2 (09:00→21:00)
[2017-05-28] MEDS: REMOVE OLD PATCH T-DERMAL SCH (09:00)
[2017-05-28] MEDS: FAMOTIDINE 20 MG/2 ML VIAL IV PUSH SCH ×2 (09:40→22:20)
[2017-05-28] MEDS: NICOTINE 21 MG/24 HR PATCH T-DERMAL SCH (09:41)
[2017-05-28] MEDS: SODIUM CHLORIDE 0.9% FLUSH 10 ML FLUSH IV FLUSH SCH ×2 (09:42→22:20)
[2017-05-28] MEDS: LIDOCAINE HCL 5% PATCH T-DERMAL SCH (09:42)
[2017-05-28] MEDS: LACTOBACILLUS ACIDOPHILUS 1 GM PACKET PO SCH ×2 (09:43→21:00)
[2017-05-28] MEDS: PSYLLIUM HUSK SF 3.4 GM in 5.8 GM PKT PO SCH ×2 (09:43→21:00)
[2017-05-28] MEDS: LINEZOLID 600 MG PREMIX 300 ML IV SCH (10:31)
[2017-05-28] MEDS ORDERED: POTASSIUM CHLORIDE 20 MEQ CONTROLLED RELEASE TAB PO ONE ×2 (13:15→16:00)
[2017-05-28] MEDS: HALOPERIDOL LACTATE 5 MG/ML AMP IV PUSH PRN (17:26)
--- NOTE | 2017-05-28 17:48 | HHI.PR ---
Subjective Remarks No apparent distress, Continues to have periods of confusion and paranoia. Objective Vital Signs Date Time Temp Pulse Resp B/P (MAP) Pulse Ox O2 Delivery O2 Flow Rate FiO2 05/28/17 13:00 74 39 94 05/28/17 12:16 98.2 70 36 170/76 (107) 94 05/28/17 12:00 68 05/28/17 11:00 62 31 168/63 (98) 95 05/28/17 10:00 74 05/28/17 10:00 70 44 168/81 (110) 95 05/28/17 09:26 72 42 185/76 (112) 92 05/28/17 09:10 80 44 190/87 (121) 93 05/28/17 08:42 94 21 05/28/17 08:33 72 43 168/67 (100) 91 05/28/17 08:04 99.3 74 47 198/80 (119) 92 05/28/17 08:00 71 05/28/17 08:00 94 Room Air 05/28/17 08:00 82 48 191/79 (116) 05/28/17 07:00 74 28 166/67 (100) 92 05/28/17 06:00 76 28 150/69 (96) 93 05/28/17 06:00 74 05/28/17 05:02 72 28 150/69 (96) 94 05/28/17 04:00 99.2 66 26 130/65 (86) 93 05/28/17 04:00 66 05/28/17 03:00 70 28 132/58 (82) 94 05/28/17 02:00 68 05/28/17 02:00 68 30 147/73 (97) 93 05/28/17 01:00 70 28 131/57 (81) 94 05/28/17 00:00 72 05/28/17 00:00 98.8 72 29 112/56 (74) 95 05/27/17 23:42 70 30 129/60 (83) 95 05/27/17 23:00 70 30 129/60 (83) 95 05/27/17 22:00 74 05/27/17 21:36 66 28 156/68 (97) 94 05/27/17 20:00 94 Nasal Cannula 2.00 05/27/17 20:00 68 05/27/17 19:45 96 21 05/27/17 19:15 98.8 68 31 135/59 (84) 95 05/27/17 18:00 72 05/27/17 18:00 68 31 135/59 (84) 95 I/O 05/27/17 05/27/17 05/27/17 05/28/17 05/28/17 05/28/17 07:00 15:00 23:00 07:00 15:00 23:00 Intake Total 1222 ml 300 ml 940 ml 1140 ml Output Total 1500 ml 300 ml 1 ml Balance -278 ml 300 ml 640 ml 1139 ml Intake Oral 600 ml 480 ml 340 ml IV Total 622 ml 300 ml 460 ml 800 ml Output Urine Total 1500 ml 300 ml Stool Total 1 ml # Voids 3 3 # Bowel Movements 2 4 1 Result Diagram: 05/27/17 1105 05/28/17 0805 Procedures Objective Remarks GENERAL:Well nourished in no apparent distress,oriented to self SKIN: Warm and dry. HEAD: Atraumatic. Normocephalic. EYES: Pupils equal and round. No scleral icterus. No injection or drainage. ENT: No nasal bleeding or discharge. Mucous membranes pink and moist. NECK: Trachea midline. No JVD. CARDIOVASCULAR: Normal rate, regular rhythm. RESPIRATORY: Breath sounds diminished, no wheezes or rhonchi GASTROINTESTINAL: Abdomen soft, non-tender, nondistended. No guarding. MUSCULOSKELETAL: Extremities without clubbing, cyanosis, or edema. No obvious deformities. NEUROLOGICAL: GCS 14 .Awake and alert to person, follows commands Assessment and Plan Problem List: (1) Leukocytosis ICD Codes: D72.829 - Elevated white blood cell count, unspecified Status: Acute (2) YANNA (acute kidney injury) ICD Codes: N17.9 - Acute kidney failure, unspecified Status: Acute (3) Fall ICD Codes: W19.XXXA - Unspecified fall, initial encounter Status: Acute Assessment and Plan S/P fall Left hip pain complain of pain, lidocaine patch Encephalopathy- patient with some confusion today, nurse reports clear mentation yesterday, Neuro following Head CT negative , Psych consulted for increase Paranoia resp insufficiency Keep sats >92 Leukocytosis- WBC trending up, ID following, iv Zyvox, labs YANNA- renal consulted, GFR improved greatly Hypokalemia-Replace, 2.7 today, Potassium protocol HTN- B/P running high, will add lisinopril 5mg qd GI/DVT prophylaxis, Lovenox, Pepcid Problem Qualifiers (1) Fall: Qualified Codes: W19.XXXA - Unspecified fall, initial encounter Tanya Toro May 28, 2017 17:48
--- NOTE | 2017-05-28 18:44 | HHI.IDPN ---
Note Infectious Disease Note Patient is alert answering most questions appropriately. Conversing freely. Afebrile. C/o some shortness of breath and cough 61-year-old white female was brought to the emergency department on 05/20/2017 after she was found at home following a fall. It is noted in the emergency department record that the patient was on the ground for three days. White blood cell count was elevated at 30.6 with left shift. She also was found to have acute renal failure. PAST MEDICAL HISTORY 1. Arthritis, 2. Bilateral hip replacement, 3. Anxiety, depression. ALLERGIES CEFEPIME CEFTAROLINE CEPHALEXIN PENICILLIN G PROPOXYPHENE MEDICATIONS Current Medications Medications (Trade) Dose Ordered Sig/Magda Route PRN Reason Start Time Stop Time Status Last Admin Dose Admin Sodium Chloride (NS Flush) 2 ml UNSCH PRN IV FLUSH FLUSH AFTER USING IV ACCESS 05/20/17 18:00 Sodium Chloride (NS Flush) 2 ml BID IV FLUSH 05/20/17 21:00 05/24/17 19:42 Enoxaparin Sodium (Lovenox Inj) 40 mg Q24H SQ 05/20/17 21:00 05/24/17 19:43 Naloxone HCl (Narcan Inj) 0.4 mg UNSCH PRN IV PUSH SEE LABEL COMMENTS 05/20/17 18:00 Miscellaneous Information Patient in critical care unit? Ass... Q361D .XX 05/20/17 22:30 05/20/17 22:30 Chlorhexidine Gluconate (Chlorhexidine 2% Cloth) 3 pack UNSCH PRN TOPICAL HYGIENIC CARE 05/20/17 22:30 05/25/17 22:18 Levofloxacin (Levaquin) 250 mg DAILY@1800 PO 05/21/17 18:00 05/24/17 17:33 Phenylephrine HCl 160 mg/Dextrose 500 ml @ 7.5 mls/hr TITRATE PRN IV Blood pressure management 05/22/17 01:15 Terbutaline Sulfate (Brethine Inj) 1 mg UNSCH PRN SQ For Extravasation 05/22/17 01:15 Acetaminophen (Tylenol) 650 mg Q6H PRN PO PAIN 1-10 AND/OR FEVER >101F 05/22/17 07:00 Ondansetron HCl (Zofran Inj) 4 mg Q6H PRN IV PUSH NAUSEA OR VOMITING 05/22/17 07:00 Albuterol/ Ipratropium (Duoneb Neb) 1 ampule Q6HR NEB INH 05/22/17 10:00 05/25/17 16:00 Senna/Docusate Sodium (Shonna-Colace) 1 tab BID PO 05/22/17 09:00 05/23/17 08:21 Magnesium Hydroxide (Milk Of Magnesia Liq) 30 ml Q12H PRN PO Mild constipation 05/22/17 07:00 Sennosides (Senokot) 17.2 mg Q12H PRN PO Moderate constipation 05/22/17 07:00 Bisacodyl (Dulcolax Supp) 10 mg DAILY PRN RECTAL SEVERE CONSITIPATION 05/22/17 07:00 Lactulose (Lactulose Liq) 30 ml DAILY PRN PO SEVERE CONSITIPATION 05/22/17 07:00 Midodrine (Proamatine) 10 mg TID@07,12,17 PO 05/22/17 08:00 05/23/17 08:21 Linezolid 300 ml @ 300 mls/hr Q12H IV 05/22/17 11:00 05/25/17 09:43 Haloperidol Lactate (Haldol Inj) 2 mg Q4HR PRN IV PUSH agitation 05/22/17 19:45 05/25/17 02:28 Ziprasidone (Geodon Inj) 10 mg Q12H PRN IM breakthrough agitation 05/22/17 19:45 05/25/17 19:44 05/24/17 19:42 Dextrose/Sodium Chloride 1,000 ml @ 30 mls/hr Q24H IV 05/23/17 07:00 05/25/17 07:00 Trazodone HCl (Desyrel) 75 mg HS PRN PO INSOMNIA 05/24/17 22:15 05/24/17 22:18 Nicotine (Habitrol 21 Mg Patch.24 Hr) 1 patch DAILY T-DERMAL 05/25/17 09:00 05/25/17 07:32 Miscellaneous Information 1 DAILY T-DERMAL 05/25/17 09:00 Trazodone HCl (Desyrel) 100 mg HS PO 05/25/17 21:00 Famotidine (Pepcid Inj) 20 mg Q12HR IV PUSH 05/25/17 21:00 Alprazolam (Xanax) 0.25 mg UNSCH X1 PRN PO GIVE PRIOR TO MRI 05/25/17 14:15 05/26/17 14:14 05/25/17 16:00 OBJECTIVE: Vital Signs Date Time Temp Pulse Resp B/P (MAP) Pulse Ox O2 Delivery O2 Flow Rate FiO2 05/25/17 16:02 72 41 155/77 (103) 92 05/25/17 16:00 72 05/25/17 16:00 98.6 05/25/17 15:10 72 41 153/68 (96) 91 05/25/17 15:01 76 29 153/76 (101) 91 05/25/17 14:01 76 38 142/61 (88) 94 05/25/17 14:00 76 05/25/17 13:01 78 37 138/66 (90) 94 05/25/17 12:01 98.9 74 33 145/73 (97) 94 05/25/17 12:00 82 05/25/17 11:00 70 30 126/59 (81) 93 05/25/17 10:00 80 36 158/84 (108) 92 05/25/17 10:00 61 05/25/17 09:00 78 34 152/54 (86) 92 05/25/17 08:28 93 Nasal Cannula 3.50 05/25/17 08:10 78 44 166/69 (101) 92 05/25/17 08:00 78 05/25/17 08:00 Room Air 2.00 21 05/25/17 07:00 98.1 84 37 174/73 (106) 93 05/25/17 06:00 78 42 164/84 (110) 90 05/25/17 06:00 78 05/25/17 05:00 82 37 160/72 (101) 90 05/25/17 04:00 76 05/25/17 04:00 98.7 76 33 153/69 (97) 91 05/25/17 03:15 74 36 168/68 (101) 91 05/25/17 02:00 84 41 154/70 (98) 92 05/25/17 02:00 84 05/25/17 01:00 76 36 155/78 (103) 92 05/25/17 00:00 78 05/25/17 00:00 98.7 78 34 149/68 (95) 94 05/24/17 23:00 80 35 162/65 (97) 95 05/24/17 22:00 80 35 184/109 (134) 96 05/24/17 22:00 80 05/24/17 21:00 76 31 170/71 (104) 97 05/24/17 20:00 98.3 72 34 156/71 (99) 97 05/24/17 20:00 72 05/24/17 19:00 70 26 147/77 (100) 97 05/24/17 19:00 Room Air Laboratory Tests Test 05/25/17 08:00 White Blood Count 18.1 TH/MM3 Red Blood Count 3.79 MIL/MM3 Hemoglobin 11.1 GM/DL Hematocrit 33.7 % Mean Corpuscular Volume 88.9 FL Mean Corpuscular Hemoglobin 29.2 PG Mean Corpuscular Hemoglobin Concent 32.8 % Red Cell Distribution Width 13.9 % Platelet Count 240 TH/MM3 Mean Platelet Volume 8.5 FL Neutrophils (%) (Auto) 83.3 % Lymphocytes (%) (Auto) 11.4 % Monocytes (%) (Auto) 5.0 % Eosinophils (%) (Auto) 0.1 % Basophils (%) (Auto) 0.2 % Neutrophils # (Auto) 15.1 TH/MM3 Lymphocytes # (Auto) 2.1 TH/MM3 Monocytes # (Auto) 0.9 TH/MM3 Eosinophils # (Auto) 0.0 TH/MM3 Basophils # (Auto) 0.0 TH/MM3 CBC Comment AUTO DIFF Differential Comment AUTO DIFF CONFIRMED Toxic Granulation 1+ Laboratory Tests Test 05/24/17 05:31 05/25/17 08:00 Blood Urea Nitrogen 44 MG/DL 34 MG/DL Creatinine 1.30 MG/DL 1.00 MG/DL Random Glucose 118 MG/DL 108 MG/DL Total Protein 6.2 GM/DL 6.3 GM/DL Albumin 2.3 GM/DL 2.2 GM/DL Calcium Level 8.6 MG/DL 8.3 MG/DL Alkaline Phosphatase 252 U/L 210 U/L Aspartate Amino Transf (AST/SGOT) 25 U/L 20 U/L Alanine Aminotransferase (ALT/SGPT) 11 U/L 8 U/L Total Bilirubin 1.0 MG/DL 1.0 MG/DL Sodium Level 149 MEQ/L 148 MEQ/L Potassium Level 3.3 MEQ/L 3.0 MEQ/L Chloride Level 118 MEQ/L 114 MEQ/L Carbon Dioxide Level 22.9 MEQ/L 25.3 MEQ/L Anion Gap 8 MEQ/L 9 MEQ/L Estimat Glomerular Filtration Rate 42 ML/MIN 56 ML/MIN Ammonia 28 MCMOL/L Microbiology Date/Time Source Procedure Growth Status 05/25/17 10:20 Urine Catheterized Urine Urine Culture Pending Received IMAGING: Chest X-Ray 05/25/17 0000 Signed Impressions: Service Date/Time: Thursday, May 25, 2017 11:18 - CONCLUSION: Trace pleural effusions bilaterally seen best on the lateral. Garland Webb MD FACR Chest X-Ray 05/23/17 0600 Signed Impressions: Service Date/Time: Tuesday, May 23, 2017 06:20 - CONCLUSION: New bilateral interstitial pulmonary opacity suggesting mild pulmonary edema. Otf Wright MD Abdomen Ultrasound 05/22/17 0000 Signed Impressions: Service Date/Time: Monday, May 22, 2017 07:54 - CONCLUSION: 1. No evidence of acute abdominal process. No masses are identified. 2. Dilatation of the common duct and pancreatic duct which may reflect reservoir affect. MRCP could be performed for further evaluation if clinically indicated. 3. Echogenic liver compatible with fatty infiltration or hepatocellular disease. Jh Ochoa MD Hip and Pelvis X-Ray 05/20/17 1612 Signed Impressions: Service Date/Time: Saturday, May 20, 2017 16:27 - CONCLUSION: Arthroplasty in anatomic alignment without fracture. Garland Webb MD FACR PHYSICAL EXAMINATION GENERAL: No acute distress. She is awake and answering questions appropriately HEENT: Head atraumatic. Extraocular movements grossly intact. No icterus. Oropharynx mucosa moist. NECK: Supple without adenopathy or swelling. LUNGS: Bilateral some wheezing present HEART: Regular rate and rhythm without audible murmurs, rubs or gallops. ABDOMEN: Bowel sounds present, soft, no tenderness appreciated. EXTREMITIES: No clubbing, cyanosis or edema. SKIN: No diffuse rash. NEUROLOGIC: No gross focal findings PSYCHIATRIC: A bit anxious. IMPRESSION Leukocytosis probably secondary to urinary tract infection. & /0r respiratory infection Possible pneumonia RECOMMENDATIONS 1. Stop Zyvox due to potential drug interactions with psychotropic meds 2. Doxy 100 mg IV q 12hrs 3. Follow CBC David,Petty K MD May 28, 2017 18:44
[2017-05-28] MEDS: LISINOPRIL 5 MG TAB PO SCH (18:46)
--- NOTE | 2017-05-28 19:00 | HHI.PR ---
Subjective Remarks 61 YOWF with COPD,Nicotine use,AMS Breathing better Weaned to NC No fever Appetite poor Objective Vital Signs Vital Signs Date Time Temp Pulse Resp B/P (MAP) Pulse Ox O2 Delivery O2 Flow Rate FiO2 05/28/17 16:17 97.8 74 37 179/81 (113) 96 05/28/17 16:17 74 05/28/17 13:00 74 39 94 05/28/17 12:16 98.2 70 36 170/76 (107) 94 05/28/17 12:00 68 05/28/17 11:00 62 31 168/63 (98) 95 05/28/17 10:00 74 05/28/17 10:00 70 44 168/81 (110) 95 05/28/17 09:26 72 42 185/76 (112) 92 05/28/17 09:10 80 44 190/87 (121) 93 05/28/17 08:42 94 21 05/28/17 08:33 72 43 168/67 (100) 91 05/28/17 08:04 99.3 74 47 198/80 (119) 92 05/28/17 08:00 71 05/28/17 08:00 94 Room Air 05/28/17 08:00 82 48 191/79 (116) 05/28/17 07:00 74 28 166/67 (100) 92 05/28/17 06:00 76 28 150/69 (96) 93 05/28/17 06:00 74 05/28/17 05:02 72 28 150/69 (96) 94 05/28/17 04:00 99.2 66 26 130/65 (86) 93 05/28/17 04:00 66 05/28/17 03:00 70 28 132/58 (82) 94 05/28/17 02:00 68 05/28/17 02:00 68 30 147/73 (97) 93 05/28/17 01:00 70 28 131/57 (81) 94 05/28/17 00:00 72 05/28/17 00:00 98.8 72 29 112/56 (74) 95 05/27/17 23:42 70 30 129/60 (83) 95 05/27/17 23:00 70 30 129/60 (83) 95 05/27/17 22:00 74 05/27/17 21:36 66 28 156/68 (97) 94 05/27/17 20:00 94 Nasal Cannula 2.00 05/27/17 20:00 68 05/27/17 19:45 96 21 05/27/17 19:15 98.8 68 31 135/59 (84) 95 I/O 05/27/17 05/27/17 05/27/17 05/28/17 05/28/17 05/28/17 07:00 15:00 23:00 07:00 15:00 23:00 Intake Total 1222 ml 300 ml 940 ml 1140 ml 300 ml 520 ml Output Total 1500 ml 300 ml 1 ml Balance -278 ml 300 ml 640 ml 1139 ml 300 ml 520 ml Intake Oral 600 ml 480 ml 340 ml 520 ml IV Total 622 ml 300 ml 460 ml 800 ml 300 ml Output Urine Total 1500 ml 300 ml Stool Total 1 ml # Voids 3 3 6 # Bowel Movements 2 4 1 3 Result Diagram: 05/27/17 1105 05/28/17 1830 Objective Remarks GENERAL: MBMN WF,NAD SKIN: Warm and dry. HEAD: Normocephalic. EYES: No scleral icterus. No injection or drainage. NECK: Supple, trachea midline. No JVD or lymphadenopathy. CARDIOVASCULAR: Regular rate and rhythm without murmurs, gallops, or rubs. RESPIRATORY: Breath sounds equal bilaterally. No accessory muscle use. GASTROINTESTINAL: Abdomen soft, non-tender, nondistended. MUSCULOSKELETAL: No cyanosis, or edema. BACK: Nontender without obvious deformity. No CVA tenderness. A/P Assessment and Plan COPD Nicotine use Leucocytosis, possible Pn Pleural eff, small PLAN: Cont Abx monitor CBC Aerosol nebs Encourage PO Smoking cessation Drwe Rosario MD May 28, 2017 19:00
--- NOTE | 2017-05-28 19:48 | PD.PSY.CON ---
Provisional Diagnosis Admission Date May 20, 2017 at 17:56 [place] I. Unspecified psychosis History of Present Illness Service Psychiatry Consult Requested By Medical team Reason for Consult [place] Primary Care Physician Paxton Barrett, DO ADLER The patient is a 61-year-old woman, domiciled alone in [place], disabled, , mother of 2 kids, with no previous psychiatric history, no previous psychiatric hospitalizations, no previous suicidal attempts, with medical history of nicotine use, COPD, history of chronic pain. The patient was found on the floor. She says she fell on the floor but does not know how she fell. She was on the floor for three days then she was brought to the emergency room. She was found to have leukocytosis with acute renal failure. She was given Narcan and she did improve with that. The patient is in the intensive care unit. Patient has been encephalopathic. Consulted to psychiatry due to periodic agitation and paranoia. On psychiatric evaluation today patient is calm, cooperative, oriented 3. Presents some episodic confusion, but she is easily redirectable. Patient reports good mood, she is able to verbalize the reason of her hospitalization. However, at times she becomes disorganized and seems to be internally preoccupied and paranoid, for example, at some point in the interviews, she says "Can you see those tables there, I want to play". She reports good sleep, good appetite, good level of energy. She denies suicidal and homicidal ideation. As per conversation with nursing charge, the patient has been having active visual hallucinations, paranoia toward the staff, stating that people around the unit are demons, talking to herself, at times agitated. Review of Systems Endocrine: DENIES: Abnorml menstrual pattern, Heat/cold intolerance, Polydipsia , Polyuria, Polyphagia Eyes: DENIES: Blurred vision, Diplopia, Eye inflammation, Eye pain, Vision loss , Photosensitivity, Double Vision Ears, nose, mouth, throat: DENIES: Tinnitus, Hearing loss, Vertigo, Nasal discharge, Oral lesions, Throat pain, Hoarseness, Ear Pain, Running Nose, Epistaxis, Sinus Pain, Toothache, Odynophagia Respiratory: DENIES: Apneas, Cough, Snoring, Wheezing, Hemoptysis, Sputum production, Shortness of breath Cardiovascular: DENIES: Chest pain, Palpitations, Syncope, Dyspnea on Exertion , PND, Lower Extremity Edema, Orthopnea, Claudication Gastrointestinal: DENIES: Abdominal pain, Black stools, Bloody stools, Constipation, Diarrhea, Nausea, Vomiting, Difficulty Swallowing, Anorexia Genitourinary: DENIES: Abnormal vaginal bleeding, Dysmenorrhea, Dyspareunia, Sexual dysfunction, Urinary frequency, Urinary incontinence, Urgency, Hematuria , Dysuria, Nocturia, Vaginal discharge Musculoskeletal: DENIES: Joint pain, Muscle aches, Stiffness, Joint Swelling, Back pain, Neck pain Integumentary: DENIES: Abnormal pigmentation, Pruritus, Rash, Nail changes, Breast masses, Breast skin changes, Nipple discharge Hematologic/lymphatic: DENIES: Bruising, Lymphadenopathy Immunologic/allergic: DENIES: Eczema, Urticaria Neurologic: DENIES: Abnormal gait, Headache, Localized weakness, Paresthesias, Seizures, Speech Problems, Tremor, Poor Balance Psychiatric: COMPLAINS OF: Agitation, DENIES: Anxiety, Confusion, Mood changes , Depression, Hallucinations, Suicidal Ideation, Homicidal Ideation, Delusions Past Family Social History Coded Allergies: cefepime (Unverified Allergy, Severe, THROAT SWELLING, 05/20/17) ceftaroline fosamil (Unverified Allergy, Severe, THROAT SWELLING, 05/20/17) penicillin G (Unverified Allergy, Severe, HIVES, 05/20/17) propoxyphene (Unverified Allergy, Severe, THROAT SWELLING, 05/20/17) HIVES cephalexin (Verified Allergy, Unknown, THROAT SWELLING, 05/20/17) Reported Medications Tizanidine (Tizanidine) 2 Mg Tab, 2 MG PO BID for Muscle Spasm, TAB 0 Refills 05/20/17 Naproxen (Naproxen) 500 Mg Tab, 500 MG PO BID, #60 TAB 0 Refills 05/20/[address] (Cymbalta DR) 20 Mg Capdr, 20 MG PO BID, #30 CAP 0 Refills 05/20/17 Acetaminophen-Codeine (Tylenol-Codeine #4) 300-60 mg Tab, 1 TAB PO Q4H Y for PAIN, TAB 0 Refills 05/20/17 Current Medications Medications (Trade) Dose Ordered Sig/Magda Route Start Time Stop Time Status Last Admin (NS Flush) 2 ml UNSCH PRN IV FLUSH 05/20/17 18:00 (NS Flush) 2 ml BID IV FLUSH 05/20/17 21:00 05/28/17 09:42 (Lovenox Inj) 40 mg Q24H SQ 05/20/17 21:00 05/27/17 21:40 (Narcan Inj) 0.4 mg UNSCH PRN IV PUSH 05/20/17 18:00 Miscellaneous Information Patient in critical care unit? Ass... Q361D .XX 05/20/17 22:30 05/20/17 22:30 Phenylephrine HCl 160 mg/Dextrose 500 ml @ 7.5 mls/hr TITRATE PRN IV 05/22/17 01:15 (Brethine Inj) 1 mg UNSCH PRN SQ 05/22/17 01:15 (Tylenol) 650 mg Q6H PRN PO 05/22/17 07:00 05/27/17 08:54 (Zofran Inj) 4 mg Q6H PRN IV PUSH 05/22/17 07:00 05/27/17 00:08 (Shonna-Colace) 1 tab BID PO 05/22/17 09:00 05/23/17 08:21 (Milk Of Magnesia Liq) 30 ml Q12H PRN PO 05/22/17 07:00 (Senokot) 17.2 mg Q12H PRN PO 05/22/17 07:00 (Dulcolax Supp) 10 mg DAILY PRN RECTAL 05/22/17 07:00 (Lactulose Liq) 30 ml DAILY PRN PO 05/22/17 07:00 (Proamatine) 10 mg TID@07,12,17 PO 05/22/17 08:00 05/27/17 06:00 (Haldol Inj) 2 mg Q4HR PRN IV PUSH 05/22/17 19:45 05/28/17 17:26 Dextrose/Sodium Chloride 1,000 ml @ 30 mls/hr Q24H IV 05/23/17 07:00 05/27/17 20:32 (Desyrel) 75 mg HS PRN PO 05/24/17 22:15 05/24/17 22:18 (Habitrol 21 Mg Patch.24 Hr) 1 patch DAILY T-DERMAL 05/25/17 09:00 05/28/17 09:41 Miscellaneous Information 1 DAILY T-DERMAL 05/25/17 09:00 05/28/17 09:00 (Desyrel) 100 mg HS PO 05/25/17 21:00 05/27/17 21:41 (Pepcid Inj) 20 mg Q12HR IV PUSH 05/25/17 21:00 05/28/17 09:40 (Lactinex Pkt) 1 gm BID PO 05/26/17 21:00 05/28/17 09:43 (Metamucil Fiber Sf Pkt) 1 pkt BID PO 05/26/17 21:00 05/28/17 09:43 (Lidoderm 5% Patch.12 Hr) 1 patch DAILY T-DERMAL 05/27/17 09:00 05/28/17 09:42 Miscellaneous Information 1 HS T-DERMAL 05/27/17 21:00 05/27/17 21:00 Miscellaneous Information D/C ICU ELECTROLYTE ORDERS... UNSCH PRN .XX 05/27/17 12:30 Miscellaneous Information ICU - CALL ORDERING PHYSIC... UNSCH PRN .XX 05/27/17 12:30 Potassium Chloride 100 ml @ 25 mls/hr UNSCH PRN IV 05/27/17 12:30 (K-Lyte Cl Eff) 50 meq UNSCH PRN PO 05/27/17 12:30 Potassium Chloride 100 ml @ 50 mls/hr UNSCH PRN IV 05/27/17 12:30 05/28/17 00:37 Magnesium Sulfate 4 gm/Sodium Chloride 108 ml @ 54 mls/hr UNSCH PRN IV 05/27/17 12:30 Magnesium Sulfate 2 gm/Sodium Chloride 104 ml @ 52 mls/hr UNSCH PRN IV 05/27/17 12:30 (Mag-Ox) 800 mg UNSCH PRN PO 05/27/17 12:30 Sodium Phosphate 30 mmol/Sodium Chloride 260 ml @ 43.333 mls/ hr UNSCH PRN IV 05/27/17 12:30 (K-Phos) 2,000 mg UNSCH PRN PO 05/27/17 12:30 Potassium Phosphate 30 mmol/ Sodium Chloride 260 ml @ 43.333 mls/ hr UNSCH PRN IV 05/27/17 12:30 (Prinivil) 5 mg DAILY PO 05/28/17 17:45 05/28/17 18:46 (risperDAL) 0.5 mg BID PO 05/28/17 21:00 Doxycycline Hyclate 100 mg/ Sodium Chloride 100 ml @ 100 mls/hr Q12H IV 05/28/17 18:45 UNV Family Psych History The patient denies family psychiatric history Social History Patient was born and in [place], she lives in [place] alone, she is , supported by [employer] benefits, 2 kids, her highest level of education is high school Patient's Strengths (min. 2) Verbal communication Physical Exam Patient seems to be psychomotor retarded, with episodic agitation, but no restlessness, no EPS, no tremors, Vital Signs Vital Signs Date Time Temp Pulse Resp B/P (MAP) Pulse Ox O2 Delivery O2 Flow Rate FiO2 05/28/17 16:17 97.8 74 37 179/81 (113) 96 05/28/17 08:42 21 05/28/17 08:00 Room Air 05/27/17 20:00 2.00 I/O 05/28/17 05/28/17 05/29/17 08:00 16:00 00:00 Intake Total 1140 ml 300 ml 520 ml Output Total 1 ml Balance 1139 ml 300 ml 520 ml Lab Results Test 05/28/17 08:05 05/28/17 18:30 Potassium Level 2.9 MEQ/L 3.0 MEQ/L Date/Time Source Procedure Growth Status 05/22/17 01:49 Blood Peripheral Aerobic Blood Culture - Final NO GROWTH IN 5 DAYS Complete 05/22/17 01:49 Blood Peripheral Anaerobic Blood Culture - Final NO GROWTH IN 5 DAYS Complete 05/22/17 05:20 Nasal Aspirate Influenza Types A,B Antigen (LEAH) - Final NEGATIVE FOR FLU A AND B ANTIGEN.... Complete 05/25/17 10:20 Urine Catheterized Urine Urine Culture - Final NO GROWTH IN 48 HOURS. Complete Mental Status Examination Appearance: Appropriate Consciousness: Alert Orientation: x4 Motor Activity: Normal gait Speech: Unremarkable Language: Adequate Fund of Knowledge: Adequate Attention and Concentration: Adequate Memory: Unremarkable Mood: Appropriate Affect: Appropriate Thought Process & Associations: Intact Thought Content: Appropriate Hallucination Type: Visual Delusion Type: Paranoid Suicidal Ideation: No Suicidal Plan: No Suicidal Intention: No Homicidal Ideation: No Homicidal Plan: No Homicidal Intention: No Insight: Adequate Judgment: Adequate Assessment & Plan Problem List: (1) Unspecified psychosis ICD Codes: F29 - Unspecified psychosis not due to a substance or known physiological condition Assessment & Plan: Patient presents with episode of fluctuation of consciousness, perceptual disturbances, auditory hallucinations, disorganized behavior and speech and marked paranoia. Psychotic symptoms seems to be related with delirium secondary to multiple factors including age, acute medical conditions, several days in ICU, sleep deprivation, polypharmacy, among others. She will benefit of a low dose of antipsychotics. will prescribe Seroquel 12.5 , g bid. No psychiatric admission indicated at the moment. Will follow up. Assessment & Plan Estimated LOS: Eduardo Christensen MD May 28, 2017 19:47
[2017-05-28] MEDS ORDERED: PILL SPLITTER OTHER PRN (20:00)
[2017-05-28] MEDS: REMOVE OLD LIDOCAINE PATCH T-DERMAL SCH (21:00)
[2017-05-28] MEDS ORDERED: risperiDONE 0.5 MG TAB PO SCH (21:00)
[2017-05-28] MEDS: DEXT 5%-NACL 0.45% 1000 ML INJ 1,000 ML IV SCH (22:14)
[2017-05-28] MEDS: DOXYCYCLINE INJ 100 MG in SODIUM CHLORIDE 0.9% INJ 100 ML IV SCH (22:19)
[2017-05-28] MEDS: traZODone HCL 100 MG TAB PO SCH (22:20)
[2017-05-28] MEDS: ENOXAPARIN SODIUM 40 MG/0.4 ML SYRINGE SQ SCH (22:22)
[2017-05-28] MEDS: risperiDONE 0.25 MG TAB PO SCH (22:22)
[2017-05-29] VITALS (8 sets, daily range): BP systolic 135–188; BP diastolic 66–78; PULSE 78–94; RESP 12–36; TEMP 97.7–99; O2SAT 94–98
[2017-05-29] MEDS: POTASSIUM CHLOR 10 MEQ PREMIX 100 ML IV SCH ×8 (00:34→08:05)
[2017-05-29 05:14] LABS: HEMATOCRIT 37.6 % (35.0-46.0); HEMOGLOBIN 12.6 GM/DL (11.6-15.3); MEAN CELL VOLUME 88.3 FL (80.0-100.0); MEAN CORPUSCULAR HEMOGLOBIN 29.5 PG (27.0-34.0); MEAN CORPUSCULAR HGB CONC 33.4 % (32.0-36.0); MEAN PLATELET VOLUME 8.7 FL (7.0-11.0); PLATELET COUNT 315 TH/MM3 (150-450); RED BLOOD COUNT 4.26 MIL/MM3 (4.00-5.30); RED CELL DISTRIBUTION WIDTH 12.8 % (11.6-17.2)
[2017-05-29 05:34] LABS: LYMPHOCYTES 9 % (9-44); MONOCYTES 2 % (0-8); NEUTROPHIL # MANUAL DIFF 16.9 TH/MM3 (1.8-7.7); POLYS (SEG NEUTROPHILS) 89 % (16-70)
[2017-05-29] MEDS: MIDODRINE 5 MG TAB PO SCH ×3 (06:42→17:00)
[2017-05-29] MEDS: DEXT 5%-NACL 0.45% 1000 ML INJ 1,000 ML IV SCH (06:43)
[2017-05-29] MEDS: LIDOCAINE HCL 5% PATCH T-DERMAL SCH (08:05)
[2017-05-29] MEDS: DOCUSATE SODIUM 50 MG/SENNA 8.6 MG TAB PO SCH ×2 (08:06→22:25)
[2017-05-29] MEDS: FAMOTIDINE 20 MG/2 ML VIAL IV PUSH SCH ×2 (08:06→22:25)
[2017-05-29] MEDS: LISINOPRIL 5 MG TAB PO SCH (08:07)
[2017-05-29] MEDS: LACTOBACILLUS ACIDOPHILUS 1 GM PACKET PO SCH (08:07)
[2017-05-29] MEDS: NICOTINE 21 MG/24 HR PATCH T-DERMAL SCH (08:07)
[2017-05-29] MEDS: SODIUM CHLORIDE 0.9% FLUSH 10 ML FLUSH IV FLUSH SCH ×2 (08:20→22:22)
[2017-05-29] MEDS: PSYLLIUM HUSK SF 3.4 GM in 5.8 GM PKT PO SCH (08:20)
[2017-05-29] MEDS: REMOVE OLD PATCH T-DERMAL SCH (09:00)
[2017-05-29] MEDS: risperiDONE 0.25 MG TAB PO SCH (10:04)
[2017-05-29] MEDS: DOXYCYCLINE INJ 100 MG in SODIUM CHLORIDE 0.9% INJ 100 ML IV SCH ×2 (10:04→22:22)
[2017-05-29] MEDS: QUEtiapine FUMARATE 25 MG TAB PO SCH ×2 (10:06→14:35)
--- NOTE | 2017-05-29 13:52 | HHI.PR ---
Subjective Remarks No apparent distress, Continues to have increased confusion Objective Vital Signs Date Time Temp Pulse Resp B/P (MAP) Pulse Ox O2 Delivery O2 Flow Rate FiO2 05/29/17 12:00 78 28 135/66 (89) 96 05/29/17 12:00 78 05/29/17 07:00 96 Room Air 05/29/17 04:00 98.4 84 33 167/70 (102) 95 05/29/17 04:00 84 05/29/17 02:00 86 05/29/17 00:02 99.0 90 36 169/75 (106) 94 05/29/17 00:00 82 05/28/17 22:13 95 21 05/28/17 22:00 68 05/28/17 20:50 98.2 68 36 166/76 (106) 93 05/28/17 20:00 72 05/28/17 19:00 Room Air 05/28/17 16:17 97.8 74 37 179/81 (113) 96 05/28/17 16:17 74 I/O 05/28/17 05/28/17 05/28/17 05/29/17 05/29/17 05/29/17 07:00 15:00 23:00 07:00 15:00 23:00 Intake Total 1140 ml 300 ml 520 ml 500 ml 100 ml Output Total 1 ml Balance 1139 ml 300 ml 520 ml 500 ml 100 ml Intake Oral 340 ml 520 ml IV Total 800 ml 300 ml 500 ml 100 ml Stool Total 1 ml # Voids 3 6 4 # Bowel Movements 1 3 4 Result Diagram: 05/29/17 0441 05/28/17 1830 Procedures Objective Remarks GENERAL:Well nourished in no apparent distress,oriented to self SKIN: Warm and dry. HEAD: Atraumatic. Normocephalic. EYES: Pupils equal and round. No scleral icterus. No injection or drainage. ENT: No nasal bleeding or discharge. Mucous membranes pink and moist. NECK: Trachea midline. No JVD. CARDIOVASCULAR: Normal rate, regular rhythm. RESPIRATORY: Breath sounds diminished, no wheezes or rhonchi GASTROINTESTINAL: Abdomen soft, non-tender, nondistended. No guarding. MUSCULOSKELETAL: Extremities without clubbing, cyanosis, or edema. No obvious deformities. NEUROLOGICAL: GCS 14 .Awake and alert to self, follows commands Medications and IVs Current Medications Medications (Trade) Dose Ordered Sig/Magda Route Start Time Stop Time Status Last Admin (NS Flush) 2 ml UNSCH PRN IV FLUSH 05/20/17 18:00 (NS Flush) 2 ml BID IV FLUSH 05/20/17 21:00 05/29/17 08:20 (Lovenox Inj) 40 mg Q24H SQ 05/20/17 21:00 05/28/17 22:22 (Narcan Inj) 0.4 mg UNSCH PRN IV PUSH 05/20/17 18:00 Miscellaneous Information Patient in critical care unit? Ass... Q361D .XX 05/20/17 22:30 05/20/17 22:30 Phenylephrine HCl 160 mg/Dextrose 500 ml @ 7.5 mls/hr TITRATE PRN IV 05/22/17 01:15 (Brethine Inj) 1 mg UNSCH PRN SQ 05/22/17 01:15 (Tylenol) 650 mg Q6H PRN PO 05/22/17 07:00 05/27/17 08:54 (Zofran Inj) 4 mg Q6H PRN IV PUSH 05/22/17 07:00 05/27/17 00:08 (Shonna-Colace) 1 tab BID PO 05/22/17 09:00 05/29/17 08:06 (Milk Of Magnesia Liq) 30 ml Q12H PRN PO 05/22/17 07:00 (Senokot) 17.2 mg Q12H PRN PO 05/22/17 07:00 (Dulcolax Supp) 10 mg DAILY PRN RECTAL 05/22/17 07:00 (Lactulose Liq) 30 ml DAILY PRN PO 05/22/17 07:00 (Proamatine) 10 mg TID@07,12,17 PO 05/22/17 08:00 05/27/17 06:00 (Haldol Inj) 2 mg Q4HR PRN IV PUSH 05/22/17 19:45 05/28/17 17:26 Dextrose/Sodium Chloride 1,000 ml @ 30 mls/hr Q24H IV 05/23/17 07:00 05/29/17 06:43 (Desyrel) 75 mg HS PRN PO 05/24/17 22:15 05/24/17 22:18 (Habitrol 21 Mg Patch.24 Hr) 1 patch DAILY T-DERMAL 05/25/17 09:00 05/29/17 08:07 Miscellaneous Information 1 DAILY T-DERMAL 05/25/17 09:00 05/28/17 09:00 (Desyrel) 100 mg HS PO 05/25/17 21:00 05/28/17 22:20 (Pepcid Inj) 20 mg Q12HR IV PUSH 05/25/17 21:00 05/29/17 08:06 (Lactinex Pkt) 1 gm BID PO 05/26/17 21:00 05/29/17 08:07 (Metamucil Fiber Sf Pkt) 1 pkt BID PO 05/26/17 21:00 05/29/17 08:20 (Lidoderm 5% Patch.12 Hr) 1 patch DAILY T-DERMAL 05/27/17 09:00 05/29/17 08:05 Miscellaneous Information 1 HS T-DERMAL 05/27/17 21:00 05/28/17 21:00 Miscellaneous Information D/C ICU ELECTROLYTE ORDERS... UNSCH PRN .XX 05/27/17 12:30 Miscellaneous Information ICU - CALL ORDERING PHYSIC... UNSCH PRN .XX 05/27/17 12:30 Potassium Chloride 100 ml @ 25 mls/hr UNSCH PRN IV 05/27/17 12:30 (K-Lyte Cl Eff) 50 meq UNSCH PRN PO 05/27/17 12:30 Potassium Chloride 100 ml @ 50 mls/hr UNSCH PRN IV 05/27/17 12:30 05/28/17 00:37 Magnesium Sulfate 4 gm/Sodium Chloride 108 ml @ 54 mls/hr UNSCH PRN IV 05/27/17 12:30 Magnesium Sulfate 2 gm/Sodium Chloride 104 ml @ 52 mls/hr UNSCH PRN IV 05/27/17 12:30 (Mag-Ox) 800 mg UNSCH PRN PO 05/27/17 12:30 Sodium Phosphate 30 mmol/Sodium Chloride 260 ml @ 43.333 mls/ hr UNSCH PRN IV 05/27/17 12:30 (K-Phos) 2,000 mg UNSCH PRN PO 05/27/17 12:30 Potassium Phosphate 30 mmol/ Sodium Chloride 260 ml @ 43.333 mls/ hr UNSCH PRN IV 05/27/17 12:30 (Prinivil) 5 mg DAILY PO 05/28/17 17:45 05/29/17 08:07 Doxycycline Hyclate 100 mg/ Sodium Chloride 100 ml @ 100 mls/hr Q12H IV 05/28/17 20:00 05/29/17 10:04 (SEROquel) 12.5 mg BID@09,12 PO 05/29/17 09:00 05/29/17 10:06 (Pill Splitter) 1 ea UNSCH PRN OTHER 05/28/17 20:00 Assessment and Plan Problem List: (1) Leukocytosis ICD Codes: D72.829 - Elevated white blood cell count, unspecified Status: Acute (2) YANNA (acute kidney injury) ICD Codes: N17.9 - Acute kidney failure, unspecified Status: Acute (3) Fall ICD Codes: W19.XXXA - Unspecified fall, initial encounter Status: Acute Assessment and Plan S/P fall left hip pain- No complains of pain today Encephalopathy- patient with some confusion today, nurse reports clear mentation yesterday, Neuro following Head CT negative , Psych following, started on Seroquel Resp insufficiency Keep sats >92 Leukocytosis likley r/t urine ID following, iv Zyvox dcwith thoughts could be contributing to confusion, stated on Doxi iv bid. remains afebrile YANNA- renal consulted, GFR improved greatly Hypokalemia-Replace, 2.7 today, Potassium protocol HTN- B/P better with lisinopril GI/DVT prophylaxis, Lovenox, Pepcid Transfer to medical floor Up with Physical therapy Accepted at SNF, if ok with ID can likely be dc to snf. Problem Qualifiers (1) Fall: Qualified Codes: W19.XXXA - Unspecified fall, initial encounter Tanya Toro May 29, 2017 13:51
--- NOTE | 2017-05-29 16:53 | HHI.PR ---
Subjective Remarks 61 YOWF with COPD,Nicotine use,AMS Breathing better Alert, awake, follows commands No fever Appetite poor Objective Vital Signs Vital Signs Date Time Temp Pulse Resp B/P (MAP) Pulse Ox O2 Delivery O2 Flow Rate FiO2 05/29/17 16:41 97 05/29/17 12:00 78 28 135/66 (89) 96 05/29/17 12:00 78 05/29/17 07:00 96 Room Air 05/29/17 04:00 98.4 84 33 167/70 (102) 95 05/29/17 04:00 84 05/29/17 02:00 86 05/29/17 00:02 99.0 90 36 169/75 (106) 94 05/29/17 00:00 82 05/28/17 22:13 95 21 05/28/17 22:00 68 05/28/17 20:50 98.2 68 36 166/76 (106) 93 05/28/17 20:00 72 05/28/17 19:00 Room Air I/O 05/28/17 05/28/17 05/28/17 05/29/17 05/29/17 05/29/17 07:00 15:00 23:00 07:00 15:00 23:00 Intake Total 1140 ml 300 ml 520 ml 500 ml 100 ml Output Total 1 ml Balance 1139 ml 300 ml 520 ml 500 ml 100 ml Intake Oral 340 ml 520 ml IV Total 800 ml 300 ml 500 ml 100 ml Stool Total 1 ml # Voids 3 6 4 # Bowel Movements 1 3 4 Result Diagram: 05/29/17 0441 05/28/17 1830 Objective Remarks GENERAL: MBMN WF,NAD SKIN: Warm and dry. HEAD: Normocephalic. EYES: No scleral icterus. No injection or drainage. NECK: Supple, trachea midline. No JVD or lymphadenopathy. CARDIOVASCULAR: Regular rate and rhythm without murmurs, gallops, or rubs. RESPIRATORY: Breath sounds equal bilaterally. No accessory muscle use. GASTROINTESTINAL: Abdomen soft, non-tender, nondistended. MUSCULOSKELETAL: No cyanosis, or edema. BACK: Nontender without obvious deformity. No CVA tenderness. A/P Assessment and Plan COPD Nicotine use Leucocytosis, possible Pn Pleural eff, small PLAN: Cont Abx Aerosol nebs Encourage PO Smoking cessation Stable on RA Available prn Drew Rosario MD May 29, 2017 16:53
[2017-05-29] MEDS: traZODone HCL 100 MG TAB PO SCH (22:25)
[2017-05-29] MEDS: ENOXAPARIN SODIUM 40 MG/0.4 ML SYRINGE SQ SCH (22:25)
[2017-05-29] MEDS: REMOVE OLD LIDOCAINE PATCH T-DERMAL SCH (22:27)
[2017-05-30] VITALS: BP 161/72; PULSE 86; RESP 20; TEMP 100.3; O2SAT 97
[2017-05-30] MEDS: LACTOBACILLUS ACIDOPHILUS 1 GM PACKET PO SCH ×3 (01:15→20:58)
[2017-05-30] MEDS: PSYLLIUM HUSK SF 3.4 GM in 5.8 GM PKT PO SCH ×3 (01:16→20:59)
[2017-05-30] MEDS: traZODone HCL 50 MG TAB PO PRN (01:33)
[2017-05-30] MEDS: ACETAMINOPHEN 325 MG TAB PO PRN (01:34)
[2017-05-30] MEDS: MIDODRINE 5 MG TAB PO SCH ×3 (07:29→18:26)
[2017-05-30 08:00] VITALS: BP_SYST 148; BP_SYST 152; BP_DIAS 70; PULSE 72; PULSE 75; RESP 18; TEMP 98; TEMP 98.2; O2SAT 95
[2017-05-30] MEDS: SODIUM CHLORIDE 0.9% FLUSH 10 ML FLUSH IV FLUSH SCH ×2 (09:00→20:58)
[2017-05-30] MEDS: DOCUSATE SODIUM 50 MG/SENNA 8.6 MG TAB PO SCH ×2 (09:00→20:58)
[2017-05-30] MEDS: REMOVE OLD PATCH T-DERMAL SCH (09:00)
[2017-05-30 09:06] LABS: AUTOMATED NEUTROPHIL # 11.1 TH/MM3 (1.8-7.7); BASOPHIL % 0.3 % (0.0-2.0); EOSINOPHIL # 0.2 TH/MM3 (0-0.4); EOSINOPHIL % 1.1 % (0.0-4.0); HEMATOCRIT 35.8 % (35.0-46.0); HEMOGLOBIN 11.8 GM/DL (11.6-15.3); LYMPHOCYTE # 2.5 TH/MM3 (1.0-4.8); MEAN CELL VOLUME 88.5 FL (80.0-100.0); MEAN CORPUSCULAR HEMOGLOBIN 29.2 PG (27.0-34.0); MEAN PLATELET VOLUME 8.5 FL (7.0-11.0); MONO % 7.1 % (0.0-8.0); MONOCYTE # 1.1 TH/MM3 (0-0.9); NEUT % 74.5 % (16.0-70.0); PLATELET COUNT 376 TH/MM3 (150-450); RED BLOOD COUNT 4.05 MIL/MM3 (4.00-5.30); RED CELL DISTRIBUTION WIDTH 13.3 % (11.6-17.2); WHITE BLOOD COUNT 14.9 TH/MM3 (4.0-11.0)
[2017-05-30 09:25] LABS: BICARBONATE 28.4 MEQ/L (21.0-32.0); CREATININE 0.67 MG/DL (0.50-1.00)
[2017-05-30] MEDS: LIDOCAINE HCL 5% PATCH T-DERMAL SCH (10:27)
[2017-05-30] MEDS: NICOTINE 21 MG/24 HR PATCH T-DERMAL SCH (10:30)
[2017-05-30] MEDS: LISINOPRIL 5 MG TAB PO SCH (10:34)
[2017-05-30] MEDS: QUEtiapine FUMARATE 25 MG TAB PO SCH ×2 (10:34→14:14)
[2017-05-30] MEDS: FAMOTIDINE 20 MG/2 ML VIAL IV PUSH SCH ×2 (10:35→22:35)
[2017-05-30] MEDS: DOXYCYCLINE INJ 100 MG in SODIUM CHLORIDE 0.9% INJ 100 ML IV SCH ×2 (10:44→20:57)
[2017-05-30 12:00] VITALS: BP 148/70; PULSE 74; RESP 18; TEMP 98; O2SAT 95
[2017-05-30] MEDS: DEXT 5%-NACL 0.45% 1000 ML INJ 1,000 ML IV SCH (14:20)
--- NOTE | 2017-05-30 14:40 | HHI.PR ---
Subjective Remarks Alert today and PT is following Objective Vital Signs Date Time Temp Pulse Resp B/P (MAP) Pulse Ox O2 Delivery O2 Flow Rate FiO2 05/30/17 08:00 98.2 72 18 152/70 (97) 95 05/30/17 08:00 98.0 75 18 148/70 (96) 95 05/30/17 00:00 100.3 86 20 161/72 (101) 97 05/29/17 22:20 Room Air 05/29/17 20:00 97.7 90 20 176/75 (108) 96 05/29/17 16:41 97 05/29/17 16:00 94 05/29/17 16:00 98.0 83 12 188/78 (114) 98 I/O 05/29/17 05/29/17 05/29/17 05/30/17 05/30/17 05/30/17 07:00 15:00 23:00 07:00 15:00 23:00 Intake Total 500 ml 100 ml 1256 ml 424 ml Output Total 1 ml Balance 500 ml 100 ml 1256 ml 423 ml Intake Oral 480 ml IV Total 500 ml 100 ml 776 ml 424 ml Stool Total 1 ml # Voids 4 2 2 2 # Bowel Movements 4 0 Result Diagram: 05/30/17 0820 05/30/17 0820 Procedures Objective Remarks GENERAL: Well-nourished, well-developed patient. SKIN: Warm and dry. HEAD: Normocephalic. EYES: No scleral icterus. No injection or drainage. NECK: Supple, trachea midline. No JVD or lymphadenopathy. CARDIOVASCULAR: Regular rate and rhythm without murmurs, gallops, or rubs. RESPIRATORY: Breath sounds equal bilaterally. No accessory muscle use.few rhonchi present bases dull GASTROINTESTINAL: Abdomen soft, non-tender, nondistended.positive bs all quad EXTREMITIES: No cyanosis, or edema. NEUROLOGICAL: Awake, more alert today Medications and IVs Inpatient Medications Acetaminophen (Tylenol) 650 mg Q8H PRN PO pain; Start 05/26/17 at 20:15; Stop at 20:15; Status DC Albumin Human 100 ml @ 60 mls/hr ONCE ONCE IV Last administered on 05/22/17at 01:29; Start 05/22/17 at 01:15; Stop 05/22/17 at 02:54; Status DC Albuterol/ Ipratropium (Duoneb Neb) 1 ampule Q6HR NEB INH Last administered on 05/26/17at 09:17; Start 05/22/17 at 10:00; Stop 05/26/17 at 09:59; Status DC Alprazolam (Xanax) 0.25 mg UNSCH X1 PRN PO GIVE PRIOR TO MRI Last administered on 05/25/17at 16:00; Start 05/25/17 at 14:15; Stop 05/26/17 at 14:14; Status DC Aztreonam 2000 mg/ Sodium Chloride 100 ml @ 200 mls/hr ONCE STAT IV Last administered on 05/20/17at 17:37; Start 05/20/17 at 17:20; Stop 05/20/17 at 17:49; Status DC Bisacodyl (Dulcolax Supp) 10 mg DAILY PRN RECTAL SEVERE CONSITIPATION; Start at 07:00 Chlorhexidine Gluconate (Chlorhexidine 2% Cloth) 3 pack UNSCH PRN TOPICAL HYGIENIC CARE; Start 05/20/17 at 22:30; Stop 05/25/17 at 22:18; Status DC Dextrose/Sodium Chloride 1,000 ml @ 30 mls/hr Q24H IV Last administered on at 14:20; Start 05/23/17 at 07:00 Doxycycline Hyclate 100 mg/ Sodium Chloride 100 ml @ 100 mls/hr Q12H IV Last administered on 05/30/17at 10:44; Start 05/28/17 at 20:00 Enoxaparin Sodium (Lovenox Inj) 40 mg Q24H SQ Last administered on 05/29/17at 22 :25; Start 05/20/17 at 21:00 Famotidine (Pepcid Inj) 20 mg Q12HR IV PUSH Last administered on 05/30/17at 10: 35; Start 05/25/17 at 21:00 Haloperidol Lactate (Haldol Inj) 2 mg Q4HR PRN IV PUSH agitation Last administered on 05/28/17at 17:26; Start 05/22/17 at 19:45 Lactobacillus Acidophilus (Lactinex Pkt) 1 gm BID PO Last administered on at 10:36; Start 05/26/17 at 21:00 Lactulose (Lactulose Liq) 30 ml DAILY PRN PO SEVERE CONSITIPATION; Start at 07:00 Levofloxacin (Levaquin) 250 mg DAILY@1800 PO Last administered on 05/24/17at 17: 33; Start 05/21/17 at 18:00; Stop 05/25/17 at 18:50; Status DC Lidocaine HCl (Lidoderm 5% Patch.12 Hr) 1 patch DAILY T-DERMAL Last administered on 05/30/17at 10:27; Start 05/27/17 at 09:00 Linezolid 300 ml @ 300 mls/hr Q12H IV Last administered on 05/28/17at 10:31; Start 05/22/17 at 11:00; Stop 05/28/17 at 18:39; Status DC Lisinopril (Prinivil) 5 mg DAILY PO Last administered on 05/30/17at 10:34; Start 05/28/17 at 17:45 Magnesium Hydroxide (Milk Of Magnesia Liq) 30 ml Q12H PRN PO Mild constipation ; Start 05/22/17 at 07:00 Magnesium Oxide (Mag-Ox) 800 mg UNSCH PRN PO ELECTROLYTE REPLACEMENT; Start 03/04 at 12:30; Stop 05/30/17 at 10:19; Status DC Magnesium Sulfate 2 gm/Sodium Chloride 104 ml @ 52 mls/hr UNSCH PRN IV ELECTROLYTE REPLACEMENT; Start 05/27/17 at 12:30; Stop 05/30/17 at 10:19; Status DC Magnesium Sulfate 4 gm/Sodium Chloride 108 ml @ 54 mls/hr UNSCH PRN IV ELECTROLYTE REPLACEMENT; Start 05/27/17 at 12:30; Stop 05/30/17 at 10:19; Status DC Metronidazole 100 ml @ 100 mls/hr ONCE STAT IV Last administered on 05/20/17at 18:11; Start 05/20/17 at 17:20; Stop 05/20/17 at 18:19; Status DC Midodrine (Proamatine) 10 mg TID@07,12,17 PO Last administered on 05/30/17at 14: 14; Start 05/22/17 at 08:00 Miscellaneous (Pill Splitter) 1 ea UNSCH PRN OTHER SEE LABEL COMMENTS; Start at 20:00 Miscellaneous Information ICU - CALL ORDERING PHYSIC... UNSCH PRN .XX SEE DOSE INSTRUCTIONS; Start 05/27/17 at 12:30; Stop 05/30/17 at 10:19; Status DC Naloxone HCl (Narcan Inj) 0.4 mg UNSCH PRN IV PUSH SEE LABEL COMMENTS; Start at 18:00 Nicotine (Habitrol 21 Mg Patch.24 Hr) 1 patch DAILY T-DERMAL Last administered on 05/30/17at 10:30; Start 05/25/17 at 09:00 Ondansetron HCl (Zofran Inj) 4 mg Q6H PRN IV PUSH NAUSEA OR VOMITING Last administered on 05/27/17at 00:08; Start 05/22/17 at 07:00 Phenylephrine HCl 160 mg/Dextrose 500 ml @ 7.5 mls/hr TITRATE PRN IV Blood pressure management; Start 05/22/17 at 01:15 Potassium Phosphate (K-Phos) 2,000 mg UNSCH PRN PO ELECTROLYTE REPLACEMENT; Start 05/27/17 at 12:30; Stop 05/30/17 at 10:20; Status DC Potassium Phosphate 30 mmol/ Sodium Chloride 260 ml @ 43.333 mls/ hr UNSCH PRN IV ELECTROLYTE REPLACEMENT; Start 05/27/17 at 12:30; Stop 05/30/17 at 10:20 ; Status DC Potassium Bicarb/ Potassium Chloride (K-Lyte Cl Eff) 50 meq UNSCH PRN PO ELECTROLYTE REPLACEMENT; Start 05/27/17 at 12:30; Stop 05/30/17 at 10:19; Status DC Potassium Chloride 100 ml @ 100 mls/hr Q1H IV Last administered on 05/29/17at 08:05; Start 05/29/17 at 00:00; Stop 05/29/17 at 07:59; Status DC Potassium Chloride (KCl) 40 meq ONCE ONCE PO Last administered on 05/28/17at 16 :57; Start 05/28/17 at 16:00; Stop 05/28/17 at 16:01; Status DC Psyllium Husk (Metamucil Fiber Sf Pkt) 1 pkt BID PO Last administered on at 08:20; Start 05/26/17 at 21:00 Quetiapine Fumarate (SEROquel) 12.5 mg BID@09,12 PO Last administered on at 14:14; Start 05/29/17 at 09:00 Risperidone (risperDAL) 0.5 mg BID PO Last administered on 05/29/17at 10:04; Start 05/28/17 at 21:00; Stop 05/29/17 at 13:41; Status DC Senna/Docusate Sodium (Shonna-Colace) 1 tab BID PO Last administered on at 22:25; Start 05/22/17 at 09:00 Sennosides (Senokot) 17.2 mg Q12H PRN PO Moderate constipation; Start 05/22/17 at 07:00 Sodium Chloride 500 ml @ 50 mls/hr Q10H IV Last administered on 05/21/17at 17:30 ; Start 05/21/17 at 17:30; Stop 05/22/17 at 03:29; Status DC Sodium Chloride (NS Flush) 2 ml BID IV FLUSH Last administered on 05/29/17at 08: 20; Start 05/20/17 at 21:00 Sodium Phosphate 30 mmol/Sodium Chloride 260 ml @ 43.333 mls/ hr UNSCH PRN IV ELECTROLYTE REPLACEMENT; Start 05/27/17 at 12:30; Stop 05/30/17 at 10:19; Status DC Terbutaline Sulfate (Brethine Inj) 1 mg UNSCH PRN SQ For Extravasation; Start 05/22/17 at 01:15 Trazodone HCl (Desyrel) 100 mg HS PO Last administered on 05/29/17at 22:25; Start 05/25/17 at 21:00 Vancomycin HCl 1000 mg/Sodium Chloride 250 ml @ 250 mls/hr ONCE STAT IV Last administered on 05/20/17at 19:25; Start 05/20/17 at 17:20; Stop 05/20/17 at 18:19; Status DC Ziprasidone (Geodon Inj) 10 mg Q12H PRN IM breakthrough agitation Last administered on 05/24/17at 19:42; Start 05/22/17 at 19:45; Stop 05/25/17 at 19:44; Status DC Assessment and Plan Problem List: (1) Encephalopathy acute ICD Codes: G93.40 - Encephalopathy, unspecified Status: Acute Plan: consulted neuro and consult reviewed. No further neuro W/U indicated. Advance physical therapy and pending referral to rehab. (2) YANNA (acute kidney injury) ICD Codes: N17.9 - Acute kidney failure, unspecified Status: Acute Plan: renal consulted gfr improving Assessment and Plan YANNA AMS will need placement at [facility] Paxton Barrett DO May 30, 2017 14:40
[2017-05-30 16:00] VITALS: BP 140/70; PULSE 80; RESP 18; TEMP 98.1; O2SAT 95
[2017-05-30 20:00] VITALS: BP 137/72; PULSE 78; RESP 20; TEMP 99.8; O2SAT 96
[2017-05-30] MEDS: traZODone HCL 100 MG TAB PO SCH (20:58)
[2017-05-30] MEDS: ENOXAPARIN SODIUM 40 MG/0.4 ML SYRINGE SQ SCH (20:58)
[2017-05-30] MEDS: REMOVE OLD LIDOCAINE PATCH T-DERMAL SCH (21:00)
[2017-05-31] VITALS: BP 132/67; PULSE 77; RESP 20; TEMP 100.2; O2SAT 98
[2017-05-31 08:00] VITALS: BP 149/70; PULSE 74; RESP 18; TEMP 99.9; O2SAT 95
[2017-05-31] MEDS: LACTOBACILLUS ACIDOPHILUS 1 GM PACKET PO SCH (09:00)
[2017-05-31] MEDS: PSYLLIUM HUSK SF 3.4 GM in 5.8 GM PKT PO SCH (09:00)
[2017-05-31] MEDS: REMOVE OLD PATCH T-DERMAL SCH (09:00)
[2017-05-31] MEDS: SODIUM CHLORIDE 0.9% FLUSH 10 ML FLUSH IV FLUSH SCH (09:00)
[2017-05-31] MEDS: DOCUSATE SODIUM 50 MG/SENNA 8.6 MG TAB PO SCH (09:00)
[2017-05-31] MEDS: NICOTINE 21 MG/24 HR PATCH T-DERMAL SCH (09:30)
[2017-05-31] MEDS: LIDOCAINE HCL 5% PATCH T-DERMAL SCH (09:30)
[2017-05-31] MEDS: QUEtiapine FUMARATE 25 MG TAB PO SCH ×2 (09:31→12:55)
[2017-05-31] MEDS: MIDODRINE 5 MG TAB PO SCH ×3 (09:31→17:22)
[2017-05-31] MEDS: DOXYCYCLINE INJ 100 MG in SODIUM CHLORIDE 0.9% INJ 100 ML IV SCH (09:32)
[2017-05-31] MEDS: LISINOPRIL 5 MG TAB PO SCH (09:32)
[2017-05-31] MEDS: FAMOTIDINE 20 MG/2 ML VIAL IV PUSH SCH (09:32)
[2017-05-31 12:00] VITALS: BP 152/72; PULSE 72; RESP 16; TEMP 99; O2SAT 95
--- NOTE | 2017-05-31 12:55 | HHI.DS ---
Discharge Summary Admission Date May 20, 2017 at 17:56 Discharge Date: May 31, 2017 Admitting Diagnosis YANNA; Hypotension; Opioid Side Effect Procedures CBC/BMP: 05/30/17 0820 05/30/17 0820 Significant Findings Laboratory Tests Test 05/28/17 18:30 05/29/17 04:41 05/30/17 08:20 Potassium Level 3.0 MEQ/L (3.5-5.1) 3.0 MEQ/L (3.5-5.1) White Blood Count 19.0 TH/MM3 (4.0-11.0) 14.9 TH/MM3 (4.0-11.0) Neutrophils % (Manual) 89 % (16-70) Neutrophils # (Manual) 16.9 TH/MM3 (1.8-7.7) Neutrophils (%) (Auto) 74.5 % (16.0-70.0) Neutrophils # (Auto) 11.1 TH/MM3 (1.8-7.7) Monocytes # (Auto) 1.1 TH/MM3 (0-0.9) Calcium Level 8.0 MG/DL (8.5-10.1) Imaging Last Impressions Head CT 05/27/17 0000 Signed Impressions: Service Date/Time: Saturday, May 27, 2017 11:11 - CONCLUSION: No acute intracranial disease. Drake Ramesh MD Abdomen CT 05/26/17 0600 Signed Impressions: Service Date/Time: Friday, May 26, 2017 07:54 - CONCLUSION: Fluid and atelectasis in the lung bases. Fatty liver. Nonspecific perinephric fluid and fatty tissue stranding. Minimally prominent celiac region lymph node. Keagan Ramos MD Cholangiopancreatography MRI 05/25/17 0000 Signed Impressions: Service Date/Time: Thursday, May 25, 2017 17:25 - CONCLUSION: No evidence of biliary tree dilatation. Gallbladder surgically absent. Limited exam due to patient discontinuing the study after 2 sequences. Jose Castle MD Chest X-Ray 05/25/17 0000 Signed Impressions: Service Date/Time: Thursday, May 25, 2017 11:18 - CONCLUSION: Trace pleural effusions bilaterally seen best on the lateral. Garland Webb MD FACR Abdomen Ultrasound 05/22/17 0000 Signed Impressions: Service Date/Time: Monday, May 22, 2017 07:54 - CONCLUSION: 1. No evidence of acute abdominal process. No masses are identified. 2. Dilatation of the common duct and pancreatic duct which may reflect reservoir affect. MRCP could be performed for further evaluation if clinically indicated. 3. Echogenic liver compatible with fatty infiltration or hepatocellular disease. Jh Ochoa MD Hip and Pelvis X-Ray 05/20/17 1612 Signed Impressions: Service Date/Time: Saturday, May 20, 2017 16:27 - CONCLUSION: Arthroplasty in anatomic alignment without fracture. Garland Webb MD FACR PE at Discharge HEENT - AT/NC; Resp - CTA; CV - RRR without rub or gallop; Abd - flat without tenderness; Neuro - alert and oriented times three; MS - FROM Hospital Course AMS improved slowly over several days. YANNA resolved with IVF and GI W/U for dilated bile duct was resolved with MRI. Pulm and ID followed for leukocytosis and chronic COPD with acute exacerbation which has markedly improved. As she is now back to her baseline mental status and no longer confused requiring restraints, she is medically stable for D/C to a SNF. Pt Condition on Discharge: Stable Discharge Disposition: Discharge to SNF Discharge Instructions DIET: Follow Instructions for: As Tolerated, No Restrictions Activities you can perform: Regular-No Restrictions Leo Tamez May 31, 2017 12:55
[2017-05-31] MEDS ORDERED: ACETAMINOPHEN/CODEINE 300 MG/30 MG TAB PO PRN (13:15)
[2017-05-31 16:00] VITALS: BP 149/70; PULSE 77; RESP 16; TEMP 98.9; O2SAT 95
[2017-05-31] MEDS ORDERED: NAPROXEN 500 MG TAB PO SCH (21:00)
== END 2017-05-31 19:10 | DRG 682 ==
LOC: PHED 15:40 → PHEDA 17:55 → UNDOADMIN 17:55 → PHEDA 17:56 → PHICU 21:55 → PH3B 05-29 13:08
PROVIDERS: ADMIT Family Medicine; ATTEND Family Medicine
DX: N17.9 Acute kidney failure, unspecified (principal); G93.41 Metabolic encephalopathy; J90 Pleural effusion, not elsewhere classified; J18.9 Pneumonia, unspecified organism; E87.2 Acidosis; I27.20 Pulmonary hypertension, unspecified; K83.8 Other specified diseases of biliary tract; N39.0 Urinary tract infection, site not specified; J44.1 Chronic obstructive pulmonary disease with (acute) exacerbation; I95.9 Hypotension, unspecified; F32.9 Major depressive disorder, single episode, unspecified; F41.8 Other specified anxiety disorders; F17.210 Nicotine dependence, cigarettes, uncomplicated; Z96.643 Presence of artificial hip joint, bilateral; W18.30XA Fall on same level, unspecified, initial encounter; Y92.002 Bathroom of unspecified non-institutional (private) residence as the place of occurrence of the external cause; M19.90 Unspecified osteoarthritis, unspecified site; M25.552 Pain in left hip; R06.89 Other abnormalities of breathing; G89.29 Other chronic pain; E86.0 Dehydration; I10 Essential (primary) hypertension; K76.0 Fatty (change of) liver, not elsewhere classified; Z72.820 Sleep deprivation; F29 Unspecified psychosis not due to a substance or known physiological condition
CPT/HCPCS: 36600; 70450; 71045; 71046; 73502; 74160; 74181; 76377; 76700; 76937; 80048; 80053; 80061; 81001; 82140; 82150; 82550; 82552; 82570; 82805; 83605; 83690; 83735; 83880; 84100; 84132; 84300; 84443; 84484; 85007; 85025; 85027; 85384; 85610; 85730; 87040; 87070; 87086; 87205; 87449; 87493; 87641; 87804; 93005; 93306; 94150; 94640; 94664; 96365; 96375; J1630; J1650; J2020; J2310; J2405; J3370; J3480; J3486; J7030; J7040; J7042; J7050; P9047; Q9967